=== PATIENT | male | born 1965 | race Caucasian/White ===

== ENCOUNTER 2023-04-13 15:39 | Outpatient (REF) | payer OTHER, SELFPAY ==
[2023-04-13 16:28] LABS: Anion Gap 15 (12-20); Blood Urea Nitrogen 11 mg/dL (9-16); Calcium 9.9 mg/dL (8.4-10.2); Carbon Dioxide 28 mmol/L (22-29); Chloride 103 mmol/L (96-108); Estimated Glomerular Filt Rate > 60; Glucose Random 86 mg/dL (60-115); Potassium 4.5 mmol/L (3.3-5.1); Sodium 141 mmol/L (135-145)
[2023-04-20 18:18] LABS: Acetylcholine Receptor Binding <0.30 nmol/L
[2023-04-21 18:24] LABS: Acetylcholine Recep Modulating 14
== END 2023-04-13 15:40 | disposition home or self-care (01) ==
LOC: HO.LAB 15:39
PROVIDERS: PCP Internal Medicine Medical Oncology; Visit Provider Psychiatry & Neurology Neurology
DX: H53.2 Diplopia (principal)
CPT/HCPCS: 36415; 80048; 82550; 83519

== ENCOUNTER 2025-02-13 09:02 | Outpatient (AMB) | payer OTHER, SELFPAY ==
--- OUTSIDE RECORDS SUMMARY | 2025-01-10 10:54 | XMS_ITS ---
Author Organization Landen Corral III, MD Address [address] [place] [address] [place] [address] Care Team Providers Care Customs Manager Name Role Phone Landen Corral Primary Care [...] Date Provider Diagnosis Landen Corral III, MD [address] [place] [address] [place] [address] 01/10/2025 Landen Corral Overweight E66.3 Assessments Encounter [...] Details Provider Name:Landen Corral, 03/21/2025 02:30:00 PM, [address] [place] [address] [place], [address], Progress Notes * Juan Antonio LOAIZAOB:1965 (59 yo M)Acc No.[id number]:01/10/2025 Patient: Roberto ZAMAN :1965 A ge:59 Y S ex:Male Address:[address] [place] [address] * Refills Refill Fluvastatin Sodium Capsule, 40 MG, Orally, 90, TAKE 1 CAPSULE BY MOUTH DAILY, once a day, 90 days, Refills=3 * true * Date: Generated for Gonzalo vasquez/Minerva/Soraidaitting on: 0 02/13/2025 09:56 AM EDT
== END 2025-02-13 09:37 | disposition home or self-care (01) ==
LOC: HO.HMGAL 09:02
PROVIDERS: PCP Internal Medicine Medical Oncology; Visit Provider Registered Nurse Emergency
DX: J30.89 Other allergic rhinitis (principal)
CPT/HCPCS: 95117; 95165

== ENCOUNTER 2025-02-19 08:04 | Outpatient (AMB) | payer OTHER, SELFPAY ==
--- OUTSIDE RECORDS SUMMARY | 2022-08-31 07:30 | XMS_ITS | Continuity of Care Document ---
Author Organization [facility] Address [address] [place] [address] [address] [place] [address] Phone Care Team Providers Care Veneer Stock Layer Name Role Phone Maximino BURGESS FACS RVT [...] Providers Copied on Encounter [facility], [address] [place] [address] [address], [place], [id number], tel:[phone] CVR - [facility] Body mass index (BMI) 27.0-27.9, adultSpider Veins - (Telangiecta bernabe) Aug- 3 Maximino BURGESS FACS RVT TIMOTEO Tim. [address] [facility] [address], [place], [address], [place]. tel:[phone] Referring Provider: Landen Henao, [address] [facility] [address], [place], [address]. tel:[phone] [facility], [address] [facility] [address], [place], [id number], [place] tel:[phone] [facility] - [place] - [place] Spider Veins - (Telangiecta bernabe) 2 Maximino BURGESS FACS RVT TMIOTEO Tim. [address] [facility], [address], [place], [address], [place]. tel:[phone] Referring Provider: Landen Corral MD E, [address] [facility] [address], [place], [address]. tel:[phone] Family History Family Member Type Diagnosis Age [...]
--- OUTSIDE RECORDS SUMMARY | 2025-01-10 10:54 | XMS_ITS ---
Author Organization Landen Corral III, MD Address [address] [place] [address] [place] [address] Care Team Providers Care Informatics Physician Liaison Name Role Phone Landen Corral Primary Care [...] Provider Diagnosis Landen Corral III, MD [address] [place] [address] [place] [address] 01/10/2025 Landen Corral Overweight E66.3 Assessments Encounter [...] 90 days Next Appt Details Provider Name:Landen Corral, 03/21/2025 02:30:00 PM, [address] [place] [address] [place], [address], Progress Notes * Juan Antonio LOAIZAOB:1965 (59 yo M)Acc No.[id number]:01/10/2025 Patient: Roberto ZAMAN :1965 A ge:59 Y S ex:Male Address:[address] [place] [address] * Refills Refill Fluvastatin Sodium Capsule, 40 MG, Orally, 90, TAKE 1 CAPSULE BY MOUTH DAILY, once a day, 90 days, Refills=3 * true * Date: Generated for Gonzalo vasquez/Minerva/Soraidaitting on: 0 02/19/2025 08:07 AM EDT
== END 2025-02-19 08:37 | disposition home or self-care (01) ==
LOC: HO.HMGAL 08:04
PROVIDERS: PCP Internal Medicine Medical Oncology; Visit Provider Registered Nurse Emergency
DX: J30.89 Other allergic rhinitis (principal)
CPT/HCPCS: 95117; 95165

== ENCOUNTER 2025-02-28 08:07 | Outpatient (AMB) | payer OTHER, SELFPAY ==
--- OUTSIDE RECORDS SUMMARY | 2022-08-31 07:30 | XMS_ITS | Continuity of Care Document ---
Author Organization [facility] Address [address] [place] [address] [address] [place] [address] Phone Care Team Providers Care Terminal Computer Operator Name Role Phone Maximino BURGESS FACS [...] Providers Copied on Encounter [facility], [address] [place] [address] [address], [place], [id number], tel:[phone] [facility]R - [facility] Body mass index (BMI) 27.0-27.9, adultSpider Veins - (Telangiecta bernabe) Aug- 3 Maximino BURGESS FACS RVT TIMOTEO Tim. [address] [facility] [address], [address], [place]. tel:[phone] Referring Provider: Landen Henao, [address] [facility] [address], [place], [address]. tel:[phone] [facility], [address] [facility] [address], [place], [id number], [place] tel:[phone] [facility] - [place] - [place] Spider Veins - (Telangiecta bernabe) 2 Maximino BURGESS FACS RVT TIMOTEO Tim. [address] [facility], [address], [place], [address], [place]. tel:[phone] Referring Provider: Landen Corral MD E, [address] [facility] [address], [place], [address]. tel:[phone] Family History Family Member Type Diagnosis Age At Onset No Information Payers Payer name Insurance type Covered democrat ID Authoriza tion(s) Self Pay 09 Social [...]
--- OUTSIDE RECORDS SUMMARY | 2024-05-15 11:00 | XMS_ITS ---
Author Organization Landen Corral III, MD Address [address] [place] [address] [place] [address] Care Team Providers Care Forensic Anthropologist Name Role Phone Landen Corral Primary Care Provider Allergies Allergen (clinical drug [...] Internal M edicine Referred Provider [facility]geons, [facility], [facility] Referred Provider Specialty Otolaryngolo gy General Notes DMaritza 05/18/2024 10:38:44 AM > Cover sheet, referral [...] Date Provider Diagnosis Landen Corral III, MD [address] [place] [address] [place] [address] 05/15/2024 Landen Corral Overweight E66.3 ; Hyperlipidemia [...] Evaluate and Treat Bilateral Hearing Loss, of [facility], [facility]T. Surgeons Next Appt Details Follow Up: 4 Months, Three t imes a year, Reason: OV, Regular Checkup Provider Name:Landen Corral, 03/21/2025 02:30:00 PM, [address] [place] [address] [address] [place] [address], [phone], Progress Notes * Afia LOAIZAisDOB:1965 (58 yo M)Acc No.[id number]:05/15/2024 Progress Notes Patient: Roberto ZAMAN Provider: Sukhdev Corral MD :1965 A ge:58 Y S ex:Male Date:05/15/2024 Address:[address] [place] [phone] Subjective: * Chief Complaints: * H earing [...] and is working. He was born in [place], [place]. * Medications: T akingZyrTEC Allergy 10 MG [...] AB: Lipid Panel 3. O shiva Referral To:[facility] E.N.T Surgeons Otolaryngology Reason:Evaluate and Treat Bilateral [...] 07/15/2023 Generated for Gonzalo vasquez/Minerva/eTabidasmitting on: 0 02/28/2025 08:31 AM EDT History and Physical Notes * HPI (History of Present Illness) Category Sub-Category Detail Notes COVID-19 Screening Questions Have you had any new onset fever, chills, cough, congestion, sore throat, shortness of breath, muscle aches?: No Have you been exposed to the virus withi n the last 10 days?: No Have you travelled internationally in [facility] last 10 days?: No Have you been [...] Reagan rich 05/15/2024 Landen Corral Surgeons, of [facility], [facility] Evaluate and Treat Bilateral Hearing Loss
--- OUTSIDE RECORDS SUMMARY | 2024-08-25 05:11 | XMS_ITS ---
Author Organization Landen Corral III, MD Address [address] [place] [address] [place] [address] Care Team Providers Care Tongue Lining Stitcher Name Role Phone Landen Corral Primary Care Provider REASON FOR VISIT Rx [...] Date Provider Diagnosis Landen Corral III, MD [address] [place] [address] [place] [address] 08/25/2024 Landen Corral Plan Of Treatment Medication Medication Name Sig Start Date Stop Date Notes Azithromycin 250 MG as directed Orally 2 Tablets on the first day, one tablet the rest of the days for 5 days 08/25/2024 08/30/2024 Next Appt Details Provider Name:Landen Corral, 03/21/2025 02:30:00 PM, [address] [place] [address] [place], [address], Progress Notes * Juan Antonio LOAIZAOB:1965 (58 yo M)Acc No.[id number]:08/25/2024 Patient: Sukhdev PRETTYRoberto :1965 A ge:58 Y S ex:Male Address:[address] [place] [phone] * Refills Start Azithromycin Tablet, 250 MG, Orally, 6, as directed, 2 Tablets on the first day, one tablet the rest of the days, 5 days, Refills=0 * true * Date: Generated for Gonzalo vasquez/Minerva/Sonia on: 0 02/28/2025 08:29 AM EDT
--- OUTSIDE RECORDS SUMMARY | 2024-09-13 11:00 | XMS_ITS ---
Author Organization Landen Corral III, MD Address [address] [place] [address] [place] [address] Care Team Providers Care Transportation Broker Name Role Phone Landen Corral Primary Care [...] Date Provider Diagnosis Landen Corral III, MD [address] [place] [address] [place] [address] 09/13/2024 Landen Gonzalesrne Overweight E66.3 ; Hyperlipidemia [...] labs Provider Name:Landen Corral, 03/21/2025 02:30:00 PM, [address] [place] [address] [address], [place], [address], Progress Notes * Juan Antonio LOAIZAOB:1965 (58 yo M)Acc No.[id number]:09/13/2024 Progress Notes Patient: Roberto ZAMAN Provider: Sukhdev Corral MD :1965 A ge:58 Y S ex:Male Date:09/13/2024 Address:[address] [place] [phone] Subjective: * Chief Complaints: * H yperlipidemiaObstructive [...] and is working. He was born in [place]. * Medications: T akingZyrTEC Allergy 10 [...] Corral MD Date: 09/13/2024 Generated for Gonzalo vasquez/Minerva/Soraidaitting on: 0 02/28/2025 08:29 AM EDT History and Physical Notes [...]
--- OUTSIDE RECORDS SUMMARY | 2025-01-10 10:54 | XMS_ITS ---
Author Organization Landen Corral III, MD Address [address] [place] [address] [place] [address] Care Team Providers Care Electro Mechanical Technician Name Role Phone Landen Corral Primary [...] Date Provider Diagnosis Landen Corral III, MD [address] [place] [address] [place] [address] 01/10/2025 Landen Corral Overweight E66.3 Assessments Encounter [...] Details Provider Name:Landen Corral, 03/21/2025 02:30:00 PM, [address] [place] [address] [place], [address], Progress Notes * Juan Antonio LOAIZAOB:1965 (59 yo M)Acc No.[id number]:01/10/2025 Patient: Roberto ZAMAN :1965 A ge:59 Y S ex:Male Address:[address] [place] [address] * Refills Refill Fluvastatin Sodium Capsule, 40 MG, Orally, 90, TAKE 1 CAPSULE BY MOUTH DAILY, once a day, 90 days, Refills=3 * true * Date: Generated for Gonzalo vasquez/Minerva/Soraidaitting on: 0 02/28/2025 08:30 AM EDT
--- OUTSIDE RECORDS SUMMARY | 2025-01-17 11:30 | XMS_ITS ---
Author Organization Landen Corral III, MD Address [address] [place] [address] [place] [address] Care Team Providers Care Department Specialist Name Role Phone Landen Corral Primary Care [...] Date Provider Diagnosis Landen Corral III, MD [address] [place] [address] [address] [place], [place] [address] 01/17/2025 Landen Corral Overweight E66.3 ; Hyperlipidemia [...] Next Appt Details Follow Up: As Scheduled, [place] son: Annual Exam Provider Name:Landen Corral, 03/21/2025 02:30:00 PM, [address], [place], [address], Progress Notes * Juan Antonio LOAIZAOB:1965 (59 yo M)Acc No.[id number]:01/17/2025 Progress Notes Patient: Roberto ZAMAN Provider: Sukhdev Corral MD :1965 A ge:59 Y S ex:Male Date:01/17/2025 Address:[address] [place] [address], [phone] Subjective: * Chief Complaints: * H yperlipidemiaOverweightSleep [...] * Surgical History: c olonoscopy, based a [facility], every 10 years March 2020No history [...] and is working. He was born in [place]. * Medications: T akingZyrTEC Allergy 10 [...] true * Provider: Sukhdev Corral MD Date: 01/17/2025 Generated for Gonzalo vasquez/Minerva/eTabidasmitting on: 02/28/2025 08:30 AM EDT History and Physical Notes [...]
--- OUTSIDE RECORDS SUMMARY | 2025-02-28 08:31 | XMS_ITS | Patient Health Record ---
Author Organization Landen Corral III, MD Address [address] [place] [address] [place] [address] Care Team Providers Care Angular Js Developer Name Role Phone Landen Corral Primary Care Provider [phone] Allergies Allergen (clinical drug ingredient) Drug/Non Drug Allergy documented on EMR Reaction Allergy Type Onset Date Status Statins Support muscle pain Drug Allergy Active environmental (uncoded) Unknown Allergy Active insects (uncoded) Unknown Allergy Ac tive Results Component Value Reference Range Notes URINE DIP STICK Reviewed date:03/20/2024 02:37:11 PM Interpretation: Performing Lab: Notes/Report: SG 1.015 1.005 - 1.025 pH 6.0 5.0 - 9.0 BOLIVAR 70 Negative - NIT Negative Negative - PRO 15 Negative - Trace GLU Negative Negative - KET Negative Negative - UBG 0.2 0.1 - 1.8 SHLOMO Negative 0.2 - 1.3 BLD 50 Negative - Reason For Referral Reason Evaluate and Treat Bilateral Hearing Loss Diagnosis 1 Bilateral hearing lo ss, unspecified hearing loss type (H91.93) Referral Organization Landen Corral III, MD Referring Provider First Name Landen Referring Provider Last Name Ellis Referring Provider Speciality Internal M edicine Referred Provider [facility], [facility], [facility] Referred Provider Specialty Otolaryngolo gy General Notes D Maritza 05/18/2024 10:38:44 AM > Cover sheet, referral and progress note faxed Referral Priority Routine Referral Appointment Date 09/27/2024 Medications Medication SIG (Take, Route, Frequency, Duration) Notes Start Date End Date Status Fluvastatin Sodium 40 MG TAKE 1 CAPSULE BY MOUTH DAILY Orally once a day Active ZyrTEC Allergy 10 MG 1 tablet Orally Onc e a day Active Citalopram Hydrobromide 10 MG 1 tablet Orally Once a day Active Immunizations Vaccine Route Administration Date Status Comme nts SHINGRIX Unknown 05/17/2020 Administered SHINGRIX Unknown 03/13/2020 Administered COVID- 19 Vaccine Unknown 07/31/2020 Administered COVID- 19 Vaccine Unknown 05/16/2021 Administered COVID- 19 Vaccine Unknown 07/03/2020 Administered Tdap Unknown 01/24/2022 Administered Tdap Unknown 03/05/2022 Administered Social History Tobacco Use: Social History Observation [...] ast year? No Points 0 Interpretation Negative Problems Problem Type SNOMED Code ICD Code Onset Dates Problem Status W/U Status Risk Notes Problem 8654017 Former smoker (Z87.891) Active confirmed He has a plan for maintenance of abstinence in times of illness and distress. He is highly motivated not to smoke. Problem 38579980 Hyperlipidemia (E78.5) Active confirmed His lipids are stable and no change in his fluvastatin dose was made today. Problem 005532602 Overweight (E66.3) Active confirmed His body mass index is 28. He has lost 2 pounds. We made a plan to continue to lose weight at a rate of one half of a pound per week. Problem BPH (benign prostatic hypertrophy) (N40.0) Active confirmed He ariises from sleep on the average twice a night. We discussed modifications in his lifestyle he could make to reduce nocturia. Problem 69370279 Statin intolerance (Z78.9) Active confirmed He has had no myalgias with fluvastatin. He is not allergic to statins. He is intolerant to the last lipid soluble statins. Problem 02489224 Obstructive sleep apnea (G47.33) Active confirmed He will continue using the CPAP. He denies any daytime somnolence. Problem Hearing loss (80830139) Bilateral hearing loss, unspecified hearing loss type (H91.93) Active confirmed Problem 52213688 Reactive depression (F32.9) Active confirmed He does not feel depressed lately. His depression is in remission and he is doing well. Vital Signs Heart Rate 67 /min 01/17/2025 Temperature 98.8 degrees Fahrenheit 01/17/2025 Blood pressure diastolic 90 mm Hg 01/17/2025 Height 70 in 01/17/2025 Blood pressure systolic 152 mm Hg 01/17/2025 Weight 195 lbs 01/17/2025 BMI 27.98 kg/m2 01/17/2025 Encounters Encounter Location Date Provider Diagnosis Landen Corral III, MD [address] [place] [address] [place] [address] 03/20/2024 Landen Corral Overweight E66.3 ; Hyperlipidemia E78.5 ; Former smoker Z87.891 ; Statin intolerance Z78.9 ; Obstructive sleep apnea G47.33 and BPH (benign prostatic hypertrophy) N40.0 Landen Corral III, MD [address] [place] [address] [place] [address] 05/15/2024 Landen Corral Overweight E66.3 ; Hyperlipidemia E78.5 ; BPH (benign prostatic hypertrophy) N40.0 ; Former smoker Z87.891 ; Obstructive sleep apnea G47.33 ; Reactive depression F32.9 and Statin intolerance Z78.9 Landen Corral III, MD [address] [place] [address] [place] [address] 09/13/2024 Landen Corral Overweight E66.3 ; Hyperlipidemia E78.5 ; Former smoker Z87.891 ; Obstructive sleep apnea G47.33 ; Statin intolerance Z78.9 and BPH (benign prostatic hypertrophy) N40.0 Landen Corral III, MD [address] [place] [address] [place] [address] 01/17/2025 Landen Corral Overweight E66.3 ; Hyperlipidemia E78.5 ; Former smoker Z87.891 ; Obstructive sleep apnea G47.33 ; BPH (benign prostatic hypertrophy) N40.0 and Reactive depression F32.9 Landen Corral III, MD [address] [place] [address] [place] [address] 08/25/2024 Landen Corral III, MD [address] [place] [address] [address] [place], [place] [address] 01/10/2025 Landen Ellis Overweight E66.3 Assessments Encounter Date Diagnosis (ICD Code) Assessment Notes Treat ment Notes Treatment Clinical Notes 03/20/2024 Hyperlipidemia (ICD-10 - E78.5) His lipids were reviewed. His total cholesterol is 235 which is acceptable. He is able to take the fluvastatin without myalgias. His triglycerides are quite elevated at 268 and we reviewed the aanimal fat in his diet. 03/20/2024 Overweight (ICD-10 - E66.3) He remains slightly overweight. We reviewed his weight loss strategy. He will continue to lose weight until his body mass index is normal. 05/15/2024 Hyperlipidemia (ICD-10 - E78.5) His lipids were reviewed. His total cholesterol is 235 which is acceptable. He is able to take the fluvastatin without myalgias. His triglycerides are quite elevated at 268 and we reviewed the aanimal fat in his diet. 05/15/2024 Overweight (ICD-10 - E66.3) His body mass index is 28. He has lost 2 pounds. We made a plan to continue to lose weight at a rate of one half of a pound per week. 09/13/2024 Hyperlipidemia (ICD-10 - E78.5) 09/13/2024 Overweight (ICD-10 - E66.3) His body mass index is 28. He has lost 2 pounds. We made a plan to continue to lose weight at a rate of one half of a pound per week. 01/17/2025 Hyperlipidemia (ICD-10 - E78.5) His lipids are stable and no change in his fluvastatin dose was made today. 01/17/2025 Overweight (ICD-10 - E66.3) His body mass index is 28. He has lost 2 pounds. We made a plan to continue to lose weight at a rate of one half of a pound per week. 01/10/2025 Overweight (ICD-10 - E66.3) His body mass index is 28. He has lost 2 pounds. We made a plan to continue to lose weight at a rate of one half of a pound per week. 03/20/2024 Former smoker (ICD-1 0 - Z87.891) He has a plan for maintenance of abstinence in times of illness and distress. He is highly motivated not to smoke. 05/15/2024 BPH (benign prostati c hypertrophy) (ICD-10 - N40.0) He ariises from sleep on the average once a month. We discussed modifications in his lifestyle he could make to reduce nocturia. 09/13/2024 Former smoker (ICD-1 0 - Z87.891) He has a plan for maintenance of abstinence in times of illness and distress. He is highly motivated not to smoke. 01/17/2025 Former smoker (ICD-1 0 - Z87.891) He has a plan for maintenance of abstinence in times of illness and distress. He is highly motivated not to smoke. 03/20/2024 Statin intolerance (ICD-10 - Z78.9) He has had no myalgias with fluvastatin. He is not allergic to statins. He is intolerant to the last lipid soluble statins. 05/15/2024 Former smoker (ICD-1 0 - Z87.891) He has a plan for maintenance of abstinence in times of illness and distress. He is highly motivated not to smoke. 09/13/2024 Obstructive sleep apnea (ICD-10 - G47.33) He will continue using the CPAP. He denies any daytime somnolence. 01/17/2025 Obstructive sleep apnea (ICD-10 - G47.33) He will continue using the CPAP. He denies any daytime somnolence. 03/20/2024 Obstructive sleep apnea (ICD-10 - G47.33) He will continue using the CPAP. He denies any daytime somnolence. 05/15/2024 Obstructive sleep apnea (ICD-10 - G47.33) He will continue using the CPAP. He denies any daytime somnolence. 09/13/2024 Statin intolerance (ICD-10 - Z78.9) He has had no myalgias with fluvastatin. He is not allergic to statins. He is intolerant to the last lipid soluble statins. 01/17/2025 BPH (benign prostati c hypertrophy) (ICD-10 - N40.0) He ariises from sleep on the average twice a night. We discussed modifications in his lifestyle he could make to reduce nocturia. 03/20/2024 BPH (benign prostati c hypertrophy) (ICD-10 - N40.0) He rises from sleep once a night. We reviewed a program of lifestyle modification to reduce nocturia. 05/15/2024 Reactive depression (ICD-10 - F32.9) He does not feel depressed lately. His depression is in remission and he is doing well. 09/13/2024 BPH (benign prostati c hypertrophy) (ICD-10 [...] last lipid soluble statins. Plan Of Treatment Pending Test Test Name Order Date PROFILE, FASTING (COMPREHENSIVE METABOLI C) 08/01/2021 PROFILE, FASTING (COMPREHENSIVE METABOLI C) 09/13/2024 PROFILE, FASTING (COMPREHENSIVE METABOLI C) 05/22/2019 PROFILE, FASTING (COMPREHENSIVE METABOLI C) 04/15/2022 PROFILE, FASTING (COMPREHENSIVE METABOLI C) 06/08/2017 PROFILE, FASTING (COMPREHENSIVE METABOLI C) 03/16/2023 PROFILE, FASTING (COMPREHENSIVE METABOLI C) 11/22/2019 PROFILE, FASTING (COMPREHENSIVE METABOLI C) 05/15/2024 PROFILE, FASTING (COMPREHENSIVE METABOLI C) 07/24/2020 PROFILE, FASTING (COMPREHENSIVE METABOLI C) 05/23/2018 PROFILE, FASTING (COMPREHENSIVE METABOLI C) 03/28/2021 PROFILE, FASTING (COMPREHENSIVE METABOLI C) 12/21/2022 PROFILE, FASTING (COMPREHENSIVE METABOLI C) 06/09/2017 PROFILE, FASTING (COMPREHENSIVE METABOLI C) 10/20/2023 PROFILE, FASTING (COMPREHENSIVE METABOLI C) 12/28/2018 PROFILE, FASTING (COMPREHENSIVE METABOLI C) 03/04/2022 PROFILE, FASTING (COMPREHENSIVE METABOLI C) 01/17/2025 PROFILE, FASTING (COMPREHENSIVE METABOLI C) 08/22/2019 PROFILE, FASTING (COMPREHENSIVE METABOLI C) 04/17/2020 PROFILE, FASTING (COMPREHENSIVE METABOLI C) 01/18/2018 PROFILE, FASTING (COMPREHENSIVE METABOLI C) 11/26/2020 PROFILE, FASTING (COMPREHENSIVE METABOLI C) 07/16/2023 PROFILE, FASTING (COMPREHENSIVE METABOLI C) 2018 PROFILE, RANDOM (COMPREHENSIVE METABOLIC ) 10/12/2017 PROFILE, RANDOM (COMPREHENSIVE METABOLIC ) 07/27/2022 LIPID PANEL 01/18/2018 LIPID PANEL 2018 LIPID PANEL 08/01/2021 LIPID PANEL 11/30/2022 LIPID PANEL 05/22/2019 LIPID PANEL 06/08/2017 LIPID PANEL 03/16/2023 LIPID PANEL 11/22/2019 LIPID PANEL 10/12/2017 LIPID PANEL 07/24/2020 LIPID PANEL 05/23/2018 LIPID PANEL 12/21/2022 LIPID PANEL 06/09/2017 LIPID PANEL 12/28/2018 LIPID PANEL 08/22/2019 LIPID PANEL 07/27/2022 LIPID PANEL 04/17/2020 PSA, TOTAL 05/15/2024 PSA, TOTAL 03/16/2023 PSA, TOTAL 10/20/2023 CBC w DIFF 08/22/2019 CBC w DIFF 11/26/2020 CBC w DIFF 07/27/2022 CBC w DIFF 04/17/2020 CBC w DIFF 01/18/2018 CBC w DIFF 09/13/2024 CBC w DIFF 04/15/2022 CBC w DIFF 2018 CBC w DIFF 08/01/2021 CBC w DIFF 05/22/2019 CBC w DIFF 06/08/2017 CBC w DIFF 11/22/2019 CBC w DIFF 03/28/2021 CBC w DIFF 10/12/2017 CBC w DIFF 07/24/2020 CBC w DIFF 03/16/2023 CBC w DIFF 05/23/2018 CBC w DIFF 01/17/2025 CBC w DIFF 12/21/2022 CBC w DIFF 06/09/2017 CBC w DIFF 12/28/2018 HEPATITIS C ANTIBODY 06/09/2017 URINALYSIS - CLEAN CATCH (UA) 03/04/2022 MRI BRAIN NO CONTRAST 02/04/2023 Sleep Study - Diagnostic 10/14/2015 CBC WITH AUTO DIFF 07/16/2023 CBC WITH AUTO DIFF 05/15/2024 CBC WITH AUTO DIFF 10/20/2023 Lipid Panel 10/20/2023 Lipid Panel 11/26/2020 Lipid Panel 07/16/2023 Lipid Panel 09/13/2024 Lipid Panel 04/15/2022 Lipid Panel 03/28/2021 Lipid Panel 05/15/2024 Lipid Panel 03/04/2022 Lipid Panel 01/17/2025 Next Appt Details Provider Name:Landen Corral, 03/21/2025 02:30:00 PM, [address] [place] [address] , [address], [place], [address], Insurance Providers Payer Name Payer Address Payer Phone Subscriber Number Group Number Insured Name Patient Relationship to Insured Coverage Start Date Coverage End Date [facility] [address] [facility] [address] [facility] [place] [phone] [id number] Rboerto Loaiza Self - patient is the insured Medical (General) History Medical History History ICD Code hyperlipidemia chronic back pain near sighted Overweight Surgical History Surgery Date(Month/Year) No history [facility] 10 [facility] March 2020 Hospitalization History Reason Date(Month/Year) No history
== END 2025-02-28 08:48 | disposition home or self-care (01) ==
LOC: HO.HMGAL 08:07
PROVIDERS: PCP Internal Medicine Medical Oncology; Visit Provider Registered Nurse Emergency
DX: J30.89 Other allergic rhinitis (principal)
CPT/HCPCS: 95117; 95165

== ENCOUNTER 2025-03-05 07:56 | Outpatient (AMB) | payer OTHER, SELFPAY ==
--- OUTSIDE RECORDS SUMMARY | 2022-08-31 07:30 | XMS_ITS | Continuity of Care Document ---
Author Organization [facility] Address [address] [place] [address] [address] [place] [address] Phone Care Team Providers Care Kitchenwhere Maker Name Role Phone Maximino BURGESS FACS RVT [...] Providers Copied on Encounter [facility], [address] [place] [address] [address], [place], [id number], tel:[phone] [facility]R - [facility] Body mass index (BMI) 27.0-27.9, adultSpider Veins - (Telangiecta bernabe) Aug- 3 Maximino BURGESS FACS RVT TIMOTEO Tim. [address] [facility] [address], [address], [place]. tel:[phone] Referring Provider: Landen Henao, [address] [facility] [address], [place], [address]. tel:[phone] [facility], [address] [facility] [address], [place], [id number], [place] tel:[phone] [facility] - [place] - [place] Spider Veins - (Telangiecta bernabe) 2 Maximino BURGESS FACS RVT TIMOTEO Tim. [address] [facility], [address], [place], [address], [place]. tel:[phone] Referring Provider: Landen Corral MD E, [address] [facility] [address], [place], [address]. tel:[phone] Family History Family Member Type Diagnosis Age [...]
--- OUTSIDE RECORDS SUMMARY | 2024-05-15 11:00 | XMS_ITS ---
Author Organization Landen Corral III, MD Address [address] [place] [address] [place] [address] Care Team Providers Care Human Resources Administrator Name Role Phone Landen Corral Primary Care Provider [phone] Allergies Allergen (clinical drug ingredient) Drug/Non Drug [...] Internal M edicine Referred Provider [facility], [facility], [facility] Referred Provider Specialty Otolaryngolo gy General Notes D Maritza 05/18/2024 10:38:44 AM > Cover sheet, [...] Provider Diagnosis Landen Corral III, MD [address] [place] [address] [place] [address] 05/15/2024 Landen Corral Overweight E66.3 ; Hyperlipidemia [...] and Treat Bilateral Hearing Loss, of [facility], [facility]geons Next Appt Details Follow Up: 4 Months, Three t imes a year, Reason: OV, Regular Checkup Provider Name:Landen Corral, 03/21/2025 02:30:00 PM, [address] [place] [address] D[address] READ [address] [place] [address], [address], Progress Notes * Afia LOAIZAisDOB:1965 (58 yo M)Acc No.[id number]:05/15/2024 Progress Notes Patient: Roberto ZAMAN Provider: Sukhdev Corral MD :1965 A ge:58 Y S ex:Male Date:05/15/2024 Address:[address] [place] [phone] Subjective: * Chief Complaints: * H earing [...] [facility], every 10 years March 2020No [...] and is working. He was born in [place], [place]. * Medications: T akingZyrTEC Allergy 10 MG [...] Examination: G eneral Examination: GENERAL APPEARANCE: p malaika, well nourished, well developed, in no acute [...] DIFF L AB: Lipid Panel 3. O shiva Referral To:[facility] Surgeons Otolaryngology Reason:Evaluate and Treat Bilateral Hearing [...] Sukhdev Corral MD Date: 07/15/2023 Generated for Gonzalo vasquez/Minerva/eTabidasmitting on: 0 03/05/2025 07:58 AM EDT History and Physical Notes * HPI (History of Present Illness) Category Sub-Category Detail Notes COVID-19 Screening Questions Have you had any new onset fever, chills, cough, congestion, sore throat, shortness of breath, muscle aches?: No Have you been exposed to the virus withi n the last 10 days?: No Have you travelled internationally in [facility] last 10 days?: No Have you been [...] Notes Referral Date Referring Provider Referred Provider Reagan rich 05/15/2024 Ladnen Corral Surgeons, of [facility], [facility] Evaluate and Treat Bilateral Hearing Loss
--- OUTSIDE RECORDS SUMMARY | 2024-08-25 05:11 | XMS_ITS ---
Author Organization Landen Corral III, MD Address [address] [place] [address] [place] [address] Care Team Providers Care Landscape Technician Name Role Phone Landen Corral Primary Care Provider [phone] REASON FOR VISIT Rx Request Medications Medication [...] Date Provider Diagnosis Landen Corral III, MD [address] [place] [address] [place] [address] 08/25/2024 Landen Corral Plan Of Treatment Medication Medication Name Sig Start Date Stop Date Notes Azithromycin 250 MG as directed Orally 2 Tablets on the first day, one tablet the rest of the days for 5 days 08/25/2024 08/30/2024 Next Appt Details Provider Name:Landen Corral, 03/21/2025 02:30:00 PM, [address] [place] [address] [place], [address], Progress Notes * Juan Antonio LOAIZAOB:1965 (58 yo M)Acc No.[id number]:08/25/2024 Patient: Sukhdev PRETTYRoberto :1965 A ge:58 Y S ex:Male Address:[address] [place] [phone] * Refills Start Azithromycin Tablet, 250 MG, Orally, 6, as directed, 2 Tablets on the first day, one tablet the rest of the days, 5 days, Refills=0 * true * Date: Generated for Gonzalo vasquez/Minerva/Sonia on: 0 03/05/2025 07:57 AM EDT
--- OUTSIDE RECORDS SUMMARY | 2024-09-13 11:00 | XMS_ITS ---
Author Organization Landen Corral III, MD Address [address] [place] [address] [place] [address] Care Team Providers Care Manager Oracle Database Name Role Phone Landen Corral Primary Care [...] Date Provider Diagnosis Landen Corral III, MD [address] [place] [address] [place] [address] 09/13/2024 Landen Gonzalesrne Overweight E66.3 ; Hyperlipidemia E78.5 ; Former [...] Months, Reason: ov review labs Provider Name:Landen Corral, 03/21/2025 02:30:00 PM, [address] [place] [address] [address], [place], [address], Progress Notes * Juan Antonio LOAIZAOB:1965 (58 yo M)Acc No.[id number]:09/13/2024 Progress Notes Patient: Roberto ZAMAN Provider: Sukhdev Corral MD :1965 A ge:58 Y S ex:Male Date:09/13/2024 Address:[address] [place] [phone] Subjective: * Chief Complaints: * H yperlipidemiaObstructive [...] and is working. He was born in [place]. * Medications: T akingZyrTEC Allergy 10 [...] true * Provider: Sukhdev Corral MD Date: 09/13/2024 Generated for Gonzalo vasquez/Minerva/Sonia on: 0 03/05/2025 07:58 AM EDT History [...]
--- OUTSIDE RECORDS SUMMARY | 2025-01-10 10:54 | XMS_ITS ---
Author Organization Landen Corral III, MD Address [address] [place] [address] [place] [address] Care Team Providers Care Children'S Librarian Name Role Phone Landen Corral Primary Care Provider [phone] REASON FOR VISIT Rx Refill Medications Medication SIG (Take, Route, Frequency, Duration) Notes Start Date End Date Status Fluvastatin Sodium 40 MG TAKE 1 CAPSULE BY MOUTH DAILY Orally once a day for 90 days Active Social History Sex Assigned At : Social History Observation Description Sex Assigned At Male Encounters Encounter Location Date Provider Diagnosis Landen Corral III, MD [address] [place] [address] [place] [address] 01/10/2025 Landen Corral Overweight E66.3 Assessments Encounter [...] Details Provider Name:Landen Corral, 03/21/2025 02:30:00 PM, [address] [place] [address] [place], [address], Progress Notes * Juan Antonio LOAIZAOB:1965 (59 yo M)Acc No.[id number]:01/10/2025 Patient: Roberto ZAMAN :1965 A ge:59 Y S ex:Male Address:[address] [place] [address] * Refills Refill Fluvastatin Sodium Capsule, 40 MG, Orally, 90, TAKE 1 CAPSULE BY MOUTH DAILY, once a day, 90 days, Refills=3 * true * Date: Generated for Gonzalo vasquez/Minerva/Soraidaitting on: 0 03/05/2025 07:58 AM EDT
--- OUTSIDE RECORDS SUMMARY | 2025-01-17 11:30 | XMS_ITS ---
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 Machine Operator Semiautomatic Name Role Phone Landen Corral Primary Care [...] Date Provider Diagnosis Landen Corral III, MD [address] [place] [address] [address] [place], [place] [phone] 01/17/2025 Landen Corral Overweight E66.3 ; Hyperlipidemia [...] Next Appt Details Follow Up: As Scheduled, [place] son: Annual Exam Provider Name:Landen Corral, 03/21/2025 02:30:00 PM, [address], [place], [address], Progress Notes * Juan Antonio LOAIZAOB:1965 (59 yo M)Acc No.[id number]:01/17/2025 Progress Notes Patient: Roberto ZAMAN Provider: Sukhdev Corral MD :1965 A ge:59 Y S ex:Male Date:01/17/2025 Address:[address] [place] [address], [id number] Subjective: * Chief Complaints: * H yperlipidemiaOverweightSleep [...] * Surgical History: c olonoscopy, based a [facility], every 10 years March 2020No [...] and is working. He was born in [place]. * Medications: T akingZyrTEC Allergy 10 [...] MD Date: 0 01/17/2025 Generated for Gonzalo vasquez/Minerva/eTabidasmitting on: 0 03/05/2025 [...]
--- OUTSIDE RECORDS SUMMARY | 2025-03-05 07:58 | XMS_ITS | Patient Health Record ---
Author Organization Landen Corral III, MD Address [address] [place] [address] [place] [address] Care Team Providers Care Senior Windows Systems Administrator Name Role Phone Landen Corral Primary [...] Internal M edicine Referred Provider [facility], [facility], [facility] Referred Provider Specialty Otolaryngolo gy General [...] Problem Status W/U Status Risk Notes Problem 7820971 Former smoker (Z87.891) Active confirmed He has a plan for maintenance of abstinence in times of illness and distress. He is highly motivated not to smoke. Problem 18190294 Hyperlipidemia (E78.5) Active confirmed His lipids are stable and no change in his fluvastatin dose was made today. Problem 273838316 Overweight (E66.3) Active confirmed His body mass index is 28. He has lost 2 pounds. We made a plan to continue to lose weight at a rate of one half of a pound per week. Problem Benign prostatic hypertrophy without outflow obstruction (502905547) BPH (benign prostatic hypertrophy) (N40.0) Active confirmed He ariises from sleep on the average twice a night. We discussed modifications in his lifestyle he could make to reduce nocturia. Problem 01600493 Statin intolerance (Z78.9) Active confirmed He has had no myalgias with fluvastatin. He is not allergic to statins. He is intolerant to the last lipid soluble statins. Problem 73196536 Obstructive sleep apnea (G47.33) Active confirmed He will continue using the CPAP. He denies any daytime somnolence. Problem Hearing loss (57678834) Bilateral hearing loss, unspecified hearing loss type (H91.93) Active confirmed Problem 31794055 Reactive depression (F32.9) Active confirmed He does [...] Provider Diagnosis Landen Corral III, MD [address] [place] [address] [place] [address] 03/20/2024 Landen Corral Overweight E66.3 ; Hyperlipidemia E78.5 ; Former smoker Z87.891 ; Statin intolerance Z78.9 ; Obstructive sleep apnea G47.33 and BPH (benign prostatic hypertrophy) N40.0 Landen Corral III, MD [address] [place] [address] [place] [address] 05/15/2024 Landen Corral Overweight E66.3 ; Hyperlipidemia E78.5 ; BPH (benign prostatic hypertrophy) N40.0 ; Former smoker Z87.891 ; Obstructive sleep apnea G47.33 ; Reactive depression F32.9 and Statin intolerance Z78.9 Landen Corral III, MD [address] [place] [address] [place] [address] 09/13/2024 Landen Corral Overweight E66.3 ; Hyperlipidemia E78.5 ; Former smoker Z87.891 ; Obstructive sleep apnea G47.33 ; Statin intolerance Z78.9 and BPH (benign prostatic hypertrophy) N40.0 Landen Corral III, MD [address] [place] [address] [place] [address] 01/17/2025 Landen Corral Overweight E66.3 ; Hyperlipidemia E78.5 ; Former smoker Z87.891 ; Obstructive sleep apnea G47.33 ; BPH (benign prostatic hypertrophy) N40.0 and Reactive depression F32.9 Landen Corral III, MD [address] [place] [address] [place] [address] 08/25/2024 Landen Corral III, MD [address] [place] [address] [address] [place] [address] 01/10/2025 Landen Ellis Overweight E66.3 Assessments Encounter [...] Details Provider Name:Landen Corral, 03/21/2025 02:30:00 PM, [address] [place] [address] DR, [address], [place], [address], Insurance Providers Payer Name Payer Address Payer Phone Subscriber Number Group Number Insured Name Patient Relationship to Insured Coverage Start Date Coverage End Date [facility] [address] [facility] [address] [facility] [place] [phone] [id number] 23 Roberto Loaiza Self - patient is the insured Medical (General) History Medical History History ICD Code hyperlipidemia chronic back pain near sighted Overweight Surgical History Surgery Date(Month/Year) No history [facility], [facility] 10 [facility] March 2020 Hospitalization History Reason Date(Month/Year) No history
== END 2025-03-05 08:19 | disposition home or self-care (01) ==
LOC: HO.HMGAL 07:56
PROVIDERS: PCP Internal Medicine Medical Oncology; Visit Provider Registered Nurse Emergency
DX: J30.89 Other allergic rhinitis (principal)
CPT/HCPCS: 95117; 95165

== ENCOUNTER 2025-03-12 08:11 | Outpatient (AMB) | payer OTHER, SELFPAY | END 2025-03-12 08:31 | disposition home or self-care (01) | LOC: HO.HMGAL 08:11 | PROVIDERS: PCP Internal Medicine Medical Oncology; Visit Provider Registered Nurse Emergency | DX: J30.89 Other allergic rhinitis (principal) | CPT/HCPCS: 95117; 95165 ==

== ENCOUNTER 2025-03-19 08:12 | Outpatient (AMB) | payer OTHER, SELFPAY ==
--- OUTSIDE RECORDS SUMMARY | 2024-05-15 11:00 | XMS_ITS ---
Author Organization Landen Corral III, MD Address [address] [place] [address] [place] [address] Care Team Providers Care Hot Blast Worker Name Role Phone Landen Corral Primary Care Provider [phone] Allergies Allergen (clinical drug ingredient) Drug/Non Drug [...] M edicine Referred Provider [facility], [facility], [facility] Referred Provider Specialty Otolaryngolo gy General [...] Date Provider Diagnosis Landen Corral III, MD [address] [place] [address] [place] [address] 05/15/2024 Landen Corral Overweight E66.3 ; Hyperlipidemia [...] Evaluate and Treat Bilateral Hearing Loss, of [facility], [facility] Surgeons Next Appt Details Follow Up: 4 Months, Three t imes a year, Reason: OV, Regular Checkup Provider Name:Landen Corral, 03/21/2025 02:30:00 PM, [address] [place] [address] [address] [place] [address], [address], Progress Notes * Afia LOAIZAisDOB:1965 (58 yo M)Acc No.[id number]:05/15/2024 Progress Notes Patient: Roberto ZAMAN Provider: Sukhdev Corral MD :1965 A ge:58 Y S ex:Male Date:05/15/2024 Address:[address] [place] [phone] Subjective: * Chief Complaints: * H earing [...] and is working. He was born in [place], [place]. * Medications: T akingZyrTEC Allergy 10 MG [...] AB: Lipid Panel 3. O shiva Referral To:[facility] Surgeons Otolaryngology Reason:Evaluate and [...] 07/15/2023 Generated for Gonzalo vasquez/Minerva/eTabidasmitting on: 0 03/19/2025 09:05 AM EDT History and Physical Notes * HPI (History of Present Illness) Category Sub-Category Detail Notes COVID-19 Screening Questions Have you had any new onset fever, chills, cough, congestion, sore throat, shortness of breath, muscle aches?: No Have you been exposed to the virus withi n the last 10 days?: No Have you travelled internationally in [facility] last 10 days?: No Have you [...] Referring Provider Referred Provider Reagan rich 05/15/2024 Landen Corral Surgeons, of [facility], [facility] Evaluate and Treat Bilateral Hearing Loss
--- OUTSIDE RECORDS SUMMARY | 2024-08-25 05:11 | XMS_ITS ---
Author Organization Landen Corral III, MD Address [address] [place] [address] [place] [address] Care Team Providers Care Digital Music Instructor Name Role Phone Landen Corral Primary Care [...] Date Provider Diagnosis Landen Corral III, MD [address] [place] [address] [place] [address] 08/25/2024 Landen Corral Plan Of Treatment Medication Medication Name Sig Start Date Stop Date Notes Azithromycin 250 MG as directed Orally 2 Tablets on the first day, one tablet the rest of the days for 5 days 08/25/2024 08/30/2024 Next Appt Details Provider Name:Landen Corral, 03/21/2025 02:30:00 PM, [address] [place] [address] [place], [address], Progress Notes * Juan Antonio LOAIZAOB:1965 (58 yo M)Acc No.[id number]:08/25/2024 Patient: Sukhdev PRETTYRoberto :1965 A ge:58 Y S ex:Male Address:[address] [place] [phone] * Refills Start Azithromycin Tablet, 250 MG, Orally, 6, as directed, 2 Tablets on the first day, one tablet the rest of the days, 5 days, Refills=0 * true * Date: Generated for Gonzalo vasquez/Minerva/Sonia on: 0 03/19/2025 09:05 AM EDT
--- OUTSIDE RECORDS SUMMARY | 2025-03-19 09:06 | XMS_ITS | Patient Health Record ---
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, [facility], [facility] Referred Provider Specialty Otolaryngolo gy [...] Problem Status W/U Status Risk Notes Problem 7554794 Former smoker (Z87.891) Active confirmed He has a plan for maintenance of abstinence in times of illness and distress. He is highly motivated not to smoke. Problem 66324304 Hyperlipidemia (E78.5) Active confirmed His lipids are stable and no change in his fluvastatin dose was made today. Problem 108510569 Overweight (E66.3) Active confirmed His body mass index is 28. He has lost 2 pounds. We made a plan to continue to lose weight at a rate of one half of a pound per week. Problem Benign prostatic hypertrophy without outflow obstruction (252391630) BPH (benign prostatic hypertrophy) (N40.0) Active confirmed He ariises from sleep on the average twice a night. We discussed modifications in his lifestyle he could make to reduce nocturia. Problem 88096266 Statin intolerance (Z78.9) Active confirmed He has had no myalgias with fluvastatin. He is not allergic to statins. He is intolerant to the last lipid soluble statins. Problem 33182990 Obstructive sleep apnea (G47.33) Active confirmed He will continue using the CPAP. He denies any daytime somnolence. 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) Active confirmed He does [...] Date Provider Diagnosis Landen Corral III, MD [address] [place] [address] [place] [address] 03/20/2024 Landen Corral Overweight E66.3 ; Hyperlipidemia E78.5 ; Former smoker Z87.891 ; Statin intolerance Z78.9 ; Obstructive sleep apnea G47.33 and BPH (benign prostatic hypertrophy) N40.0 Landen Corral III, MD [address] [place] [address] [place] [address] 05/15/2024 Landen Corral Overweight E66.3 ; Hyperlipidemia E78.5 ; BPH (benign prostatic hypertrophy) N40.0 ; Former smoker Z87.891 ; Obstructive sleep apnea G47.33 ; Reactive depression F32.9 and Statin intolerance Z78.9 Landen Corral III, MD [address] [place] [address] [place] [address] 09/13/2024 Landen Corral Overweight E66.3 ; Hyperlipidemia E78.5 ; Former smoker Z87.891 ; Obstructive sleep apnea G47.33 ; Statin intolerance Z78.9 and BPH (benign prostatic hypertrophy) N40.0 Landen Corral III, MD [address] [place] [address] [place] [address] 01/17/2025 Landen Corral Overweight E66.3 ; Hyperlipidemia E78.5 ; Former smoker Z87.891 ; Obstructive sleep apnea G47.33 ; BPH (benign prostatic hypertrophy) N40.0 and Reactive depression F32.9 Landen Corral III, MD [address] [place] [address] [place] [address] 08/25/2024 Landen Corral III, MD [address] [place] [address] [address] [place] [address] 01/10/2025 Landen Ellis Overweight E66.3 Assessments Encounter [...] Order Date PROFILE, FASTING (COMPREHENSIVE METABOLI C) 04/15/2022 PROFILE, FASTING (COMPREHENSIVE METABOLI C) 03/16/2023 PROFILE, FASTING (COMPREHENSIVE METABOLI C) 11/22/2019 PROFILE, FASTING (COMPREHENSIVE METABOLI C) 05/15/2024 PROFILE, FASTING (COMPREHENSIVE METABOLI C) 07/24/2020 PROFILE, FASTING (COMPREHENSIVE METABOLI C) 06/08/2017 PROFILE, FASTING (COMPREHENSIVE METABOLI C) 05/23/2018 PROFILE, [...] PROFILE, FASTING (COMPREHENSIVE METABOLI C) 2018 PROFILE, FASTING (COMPREHENSIVE METABOLI C) 08/01/2021 PROFILE, FASTING (COMPREHENSIVE METABOLI C) 09/13/2024 PROFILE, FASTING (COMPREHENSIVE METABOLI C) 05/22/2019 PROFILE, RANDOM (COMPREHENSIVE METABOLIC ) 10/12/2017 PROFILE, RANDOM (COMPREHENSIVE METABOLIC ) 07/27/2022 LIPID PANEL 2018 LIPID PANEL 08/01/2021 LIPID PANEL 11/30/2022 LIPID PANEL 05/22/2019 LIPID PANEL 03/16/2023 LIPID PANEL 11/22/2019 LIPID PANEL 10/12/2017 LIPID PANEL 07/24/2020 LIPID PANEL 06/08/2017 LIPID PANEL 05/23/2018 LIPID PANEL 12/21/2022 LIPID PANEL 06/09/2017 LIPID PANEL 12/28/2018 LIPID PANEL 08/22/2019 LIPID PANEL 07/27/2022 LIPID PANEL 04/17/2020 LIPID PANEL 01/18/2018 PSA, TOTAL 05/15/2024 PSA, TOTAL 03/16/2023 PSA, TOTAL 10/20/2023 CBC w DIFF 04/17/2020 CBC w DIFF 01/18/2018 CBC w DIFF 09/13/2024 CBC w DIFF 04/15/2022 CBC w DIFF 2018 CBC w DIFF 08/01/2021 CBC w DIFF 05/22/2019 CBC w DIFF 11/22/2019 CBC w DIFF 03/28/2021 CBC w DIFF 10/12/2017 CBC w DIFF 07/24/2020 CBC w DIFF 03/16/2023 CBC w DIFF 06/08/2017 CBC w DIFF 05/23/2018 CBC w DIFF 01/17/2025 CBC w DIFF 12/21/2022 CBC w DIFF 06/09/2017 CBC w DIFF 12/28/2018 CBC w DIFF 08/22/2019 CBC w DIFF 11/26/2020 CBC w DIFF 07/27/2022 HEPATITIS C ANTIBODY 06/09/2017 URINALYSIS - CLEAN CATCH (UA) 03/04/2022 MRI BRAIN NO CONTRAST 02/04/2023 Sleep Study - Diagnostic 10/14/2015 CBC WITH AUTO DIFF 07/16/2023 CBC WITH AUTO DIFF 05/15/2024 CBC WITH AUTO DIFF 10/20/2023 Lipid Panel 11/26/2020 Lipid Panel 07/16/2023 Lipid Panel 09/13/2024 Lipid Panel 04/15/2022 Lipid Panel 03/28/2021 Lipid Panel 05/15/2024 Lipid Panel 03/04/2022 Lipid Panel 01/17/2025 Lipid Panel 10/20/2023 Next Appt Details Provider Name:Landen Corral, 03/21/2025 02:30:00 PM, [address] [place] [address] [address], [address], [place], [address], Insurance Providers Payer Name Payer Address Payer Phone Subscriber Number Group Number Insured Name Patient Relationship to Insured Coverage Start Date Coverage End Date [facility] [address] [facility] [address] [facility] [place] [phone] [id number] Roberto Loaiza Self - patient is the insured Medical (General) History Medical History History ICD Code hyperlipidemia chronic back pain near sighted Overweight Surgical History Surgery Date(Month/Year) No history [facility], [facility] 10 [facility] March 2020 Hospitalization History Reason Date(Month/Year) No history
== END 2025-03-19 08:14 | disposition home or self-care (01) ==
LOC: HO.HMGAL 08:12
PROVIDERS: PCP Internal Medicine Medical Oncology; Visit Provider Registered Nurse Emergency
DX: J30.89 Other allergic rhinitis (principal)
CPT/HCPCS: 95117; 95165

== ENCOUNTER 2025-04-02 08:18 | Outpatient (AMB) | payer OTHER, SELFPAY ==
--- OUTSIDE RECORDS SUMMARY | 2024-08-25 05:11 | XMS_ITS ---
Author Organization Landen Corral III, MD Address [address] [place] [address] [place] [address] Care Team Providers Care Battery Filler Name Role Phone Dr. Landen Corral III [...] Date Provider Diagnosis Landen Corral III, MD [address] [place] [address] [place] [address] 08/25/2024 Landen Corral Plan Of Treatment Medication Medication Name Sig Start Date Stop Date Notes Azithromycin 250 MG as directed Orally 2 Tablets on the first day, one tablet the rest of the days for 5 days 08/25/2024 08/30/2024 Next Appt Details Provider Name:Landen Corral , 07/23/2025 02:30:00 PM, [address] [place] [address] [place], [address], Provider Name:Landen Corral , 03/26/2026 02:30:00 PM, [address] [place] [address] [place], [address], Progress Notes * Juan Antonio LOAIZAOB:1965 (58 yo M)Acc No.[id number]:08/25/2024 Patient: Roberto ZAMAN :1965 A ge:58 Y S ex:Male Address:[address] [place] [phone] * Refills Start Azithromycin Tablet, 250 MG, Orally, 6, as directed, 2 Tablets on the first day, one tablet the rest of the days, 5 days, Refills=0 * true * Date: Generated for Gonzalo vasquez/Minerva/Soraidaitting on: 1 08:37 AM EDT
--- OUTSIDE RECORDS SUMMARY | 2024-09-13 11:00 | XMS_ITS ---
Author Organization Landen Corral III, MD Address [address] [place] [address] [place] [address] Care Team Providers Care Funeral Director/Embalmer/Owner Name Role Phone Dr. Landen Corral III [...] Provider Diagnosis Landen Corral III, MD [address] [place] [address] [address] [address] 09/13/2024 Landen Corral Overweight E66.3 ; Hyperlipidemia [...] Provider Name:Landen Corral , 07/23/2025 02:30:00 PM, [address] [place] [address] [address], [place], [phone], Provider Name:Landen Corral , 03/26/2026 02:30:00 PM, [address] [place] [address] [address], [place], [address], Progress Notes * Juan Antonio LOAIZAOB:1965 (58 yo M)Acc No.[id number]:09/13/2024 Progress Notes Patient: Roberto ZAMAN Provider: Sukhdev Corral MD :1965 A ge:58 Y S ex:Male Date:09/13/2024 Address:[address] [place] [phone] Subjective: * Chief Complaints: * H yperlipidemiaObstructive [...] and is working. He was born in [place]. * Medications: T akingZyrTEC Allergy 10 [...] 0 09/13/2024 Generated for Gonzalo vasquez/Minerva/Soraidaitting on: 08:37 AM EDT History and Physical Notes * [...]
--- OUTSIDE RECORDS SUMMARY | 2025-01-10 10:54 | XMS_ITS ---
Author Organization Landen Corral III, MD Address [address] [place] [address] [place] [address] Care Team Providers Care Manager Community Development Name Role Phone Dr. Landen Corral III Primary Care Provider [phone] REASON FOR VISIT Rx Refill Medications Medication SIG (Take, Route, Frequency, Duration) Notes Start Date End Date Status Fluvastatin Sodium 40 MG TAKE 1 CAPSULE BY MOUTH DAILY Orally once a day for 90 days Active Social History Sex Assigned At : Social History Observation Description Sex Assigned At Male Encounters Encounter Location Date Provider Diagnosis Landen Corral III, MD [address] [place] [address] [place] [address] 01/10/2025 Landen Corral Overweight E66.3 Assessments Encounter [...] Provider Name:Landen Corral , 07/23/2025 02:30:00 PM, [address] [place] [address] [place], [address], Provider Name:Landen Corral , 03/26/2026 02:30:00 PM, [address] [place] [address] [address], [place], [address], Progress Notes * Juan Antonio LOAIZAOB:1965 (59 yo M)Acc No.[id number]:01/10/2025 Patient: Roberto ZAMAN :1965 A ge:59 Y S ex:Male Address:[address] [place] [address] * Refills Refill Fluvastatin Sodium Capsule, 40 MG, Orally, 90, TAKE 1 CAPSULE BY MOUTH DAILY, once a day, 90 days, Refills=3 * true * Date: Generated for Gonzalo vasquez/Minerva/Soraidaitting on: 08:37 AM EDT
--- OUTSIDE RECORDS SUMMARY | 2025-01-17 11:30 | XMS_ITS ---
Author Organization Landen Corral III, MD Address [address] [place] [address] [place] [address] Care Team Providers Care Horse Breaker Name Role Phone Dr. Landen Corral III [...] Date Provider Diagnosis Landen Corral III, MD [address] [place] [address] [address] [place], [place] [phone] 01/17/2025 Landen Corral Overweight E66.3 ; Hyperlipidemia [...] Next Appt Details Follow Up: As Scheduled, [place] son: Annual Exam Provider Name:Landen Corral , 07/23/2025 02:30:00 PM, [address] [place] [address] [address], [place], [address], Provider Name:Landen Corral , 03/26/2026 02:30:00 PM, [address] [place] [address] [address], [place], [address], Progress Notes * Juan Antonio LOAIZAOB:1965 (59 yo M)Acc No.[id number]:01/17/2025 Progress Notes Patient: Roberto ZAMAN Provider: Sukhdev Corral MD :1965 A ge:59 Y S ex:Male Date:01/17/2025 Address:[address] [place] [phone] Subjective: * Chief Complaints: * H yperlipidemiaOverweightSleep [...] * Surgical History: c olonoscopy, based a [facility], every 10 years March 2020No [...] and is working. He was born in [place]. * Medications: T akingZyrTEC Allergy 10 [...] 0 01/17/2025 Generated for Gonzalo vasquez/Minerva/Soraidaitting on: 1 08:38 AM EDT History and Physical Notes * [...]
--- OUTSIDE RECORDS SUMMARY | 2025-03-21 10:30 | XMS_ITS ---
Author Organization Landen Corral III, MD Address [address] [place] [address] [place] [address] Care Team Providers Care Drip Molder Name Role Phone Dr. Landen Corral III [...] Internal M edicine Referred Provider [facility], [facility] Referred Provider Specialty Otolaryngolo gy General [...] Provider Diagnosis Landen Corral III, MD [address] [place] [address] [place] [address] 03/21/2025 Landen Corral Overweight E66.3 ; Hyperlipidemia [...] 03/21/2025, Evaluate and Treat Throat Pain, of [facility], [facility] Surgeons Next Appt Details Follow Up: 4 Months, Reason: OV Provider Name:Landen Corral , 07/23/2025 02:30:00 PM, [address] [place] [address] [address], [place], [address], Provider Name:Landen Corral , 03/26/2026 02:30:00 PM, [address] [place] [address] [address], [place], [address], Progress Notes * JOSSE Juan AntonioOB:1965 (59 yo M)Acc No.[id number]:03/21/2025 Progress Notes Patient: Roberto ZAMAN Provider: Sukhdev Corral MD :1965 A ge:59 Y S ex:Male Date:03/21/2025 Address:[address] [place] [id number] Subjective: * Chief Complaints: * A nnual Exam * HPI: D epression Screening: He returns to the office for his annual examination. Since his last visit he has been healthy and well. He has noted occasional heartburn for which he takes wyyd-pip-dhvpfxt medication with success. He is using his [...] * Surgical History: c olonoscopy, based a [facility], every 10 years March 2020No history [...] and is working. He was born in [place], [place]. * Medications: T akingFluvastatin Sodium 40 MG [...] Referral To:[facility], [facility] Surgeons Otolaryngology Reason:Evaluate and [...] Corral MD Date: 0 03/21/2025 Generated for [employer]/Faechog/eTransmitting on: 1 08:37 AM EDT History and Physical Notes [...] Not layla 03/21/2025 Landen Corral Surgeons, of [facility], [facility] Evaluate and Treat Throat Pain
--- OUTSIDE RECORDS SUMMARY | 2025-04-02 08:38 | XMS_ITS | Patient Health Record ---
Author Organization Landen Corral III, MD Address [address] [place] [address] [place] [address] Care Team Providers Care Financial Reporting Advisor Name Role Phone Dr. Landen Corral III Primary Care Provider Allergies Allergen (clinical drug ingredient) Drug/Non Drug Allergy documented on EMR Reaction Allergy Type Onset Date Status Lactose Intolerance Unknown Allergy Active Statins Support muscle pain Drug Allergy Active environmental (uncoded) Unknown Allergy Active insects (uncoded) Unknown Allergy Ac tive Reason For Referral Reason Evaluate and Treat Bilateral Hearing Loss Diagnosis 1 Bilateral hearing lo ss, unspecified hearing loss type (H91.93) Referral Organization Landen Corral III, MD Referring Provider First Name Landen Referring Provider Last Name Ellis Referring Provider Speciality Internal edicine [facility] Provider Specialty Otolaryngolo gy General Notes D, Maritza 05/18/2024 10:38:44 AM > Cover sheet, referral and progress note faxed Referral Priority Routine Referral Appointment Date 09/27/2024 Reason Evaluate and Treat Throat Pain Diagnosis 1 Throat pain (R07.0) Referral Organization Landen Corral III, MD Referring Provider First Name Landen Referring Provider Last Name Corral Referring Provider Speciality Internal M edicine Referred Provider [facility], [facility] Referred Provider Specialty Otolaryngolo gy General Notes D, Maritza 03/26/2025 12:48:15 PM > cover sheet, referral and progress note faxed. Referral Priority Routine Medications Medication SIG (Take, Route, Frequency, Duration) [...] Unknown 01/24/2022 Administered Tdap Unknown 03/05/2022 Administered Comirnaty Pfizer COVID-19 12+ Unknown 03/17/2023 Admini stered Flu-IIv4pf Unknown 03/17/2023 Administered COVID Moderna Bivalent Unknown 03/05/2022 Administered RSV Adjuvant Unknown 04/03/2024 Administered Flu-IIv4pf Unknown 03/24/2018 Administered COVID 19 Moderna Unknown 11/06/2021 Administered Influenza no Preserv 3 and > Unknown 04/03/2021 Adminis tered Flu-IIv4pf Unknown 04/05/2017 Administered Flu-IIv4pf Unknown 03/13/2020 Administered Comirnaty Pfizer COVID-19 12+ Unknown 04/03/2024 Admini stered Social History Tobacco Use: Social History Observation [...] Problem Status W/U Status Risk Notes Problem 9338965 Former smoker (Z87.891) Active confirmed He has a plan for maintenance of abstinence in times of illness and distress. He is highly motivated not to smoke. Problem 36338893 Hyperlipidemia (E78.5) Active confirmed The only statin which he can tolerate his fluvastatin. He is on a maximum dose at this time with a total cholesterol near his target range. We have discussed weight reduction, dietary means to reduce cholesterol and increasing physical activity. Problem 573560343 Overweight (E66.3) Active confirmed His body mass index is 28. We made a plan to continue to lose weight at a rate of one half of a pound per week.His weight is increasing as his systolic blood pressure. There is trying to restrict sodium and increase physical activity and attempt to lose enough weight to have a normal body mass index Problem Benign prostatic hypertrophy without outflow obstruction (268223906) BPH (benign prostatic hypertrophy) (N40.0) Active confirmed He has been rising from sleep about once a night to urinate. We have reviewed lifestyle modification she could back to reduce this. Problem 77846543 Statin intolerance (Z78.9) Active confirmed He has had no myalgias with fluvastatin. He is not allergic to statins. He is intolerant to the last lipid soluble statins. Problem 12939816 Obstructive sleep apnea (G47.33) Active confirmed He will continue using the CPAP. He denies any daytime somnolence. Problem Hearing loss (30938581) Bilateral hearing loss, unspecified hearing loss type (H91.93) Active confirmed Problem 97270553 Reactive depression (F32.9) Active confirmed He does not feel depressed lately. His depression is in remission and he is doing well. Vital Signs Heart Rate 76 /min 03/21/2025 Temperature 98.1 degrees Fahrenheit 03/21/2025 Blood pressure diastolic 78 mm Hg 03/21/2025 Height 70 in 03/21/2025 Blood pressure systolic 140 mm Hg 03/21/2025 Weight 197 lbs 03/21/2025 BMI 28.26 kg/m2 03/21/2025 Encounters Encounter Location Date Provider Diagnosis Landen Corral III, MD [address] [place] [address] [place] [address] 05/15/2024 Landen Corral Overweight E66.3 ; Hyperlipidemia E78.5 ; BPH (benign prostatic hypertrophy) N40.0 ; Former smoker Z87.891 ; Obstructive sleep apnea G47.33 ; Reactive depression F32.9 and Statin intolerance Z78.9 Landen Corral III, MD [address] [place] [address] [place] [address] 09/13/2024 Landen Corral Overweight E66.3 ; Hyperlipidemia E78.5 ; Former smoker Z87.891 ; Obstructive sleep apnea G47.33 ; Statin intolerance Z78.9 and BPH (benign prostatic hypertrophy) N40.0 Landen Corral III, MD [address] [place] [address] [place] [address] 01/17/2025 Landen Corral Overweight E66.3 ; Hyperlipidemia E78.5 ; Former smoker Z87.891 ; Obstructive sleep apnea G47.33 ; BPH (benign prostatic hypertrophy) N40.0 and Reactive depression F32.9 Landen Corral III, MD [address] [place] [address] [address] [place] [address] 03/21/2025 Landen Ellis Overweight E66.3 ; Hyperlipidemia E78.5 ; BPH (benign prostatic hypertrophy) N40.0 ; Former smoker Z87.891 ; Statin intolerance Z78.9 and Obstructive sleep apnea G47.33 Landen Corral III, MD [address] [place] [address] [place] [address] 08/25/2024 Landen Corral III, MD [address] [place] [address] [place] [address] 01/10/2025 Landen Corral Overweight E66.3 Assessments Encounter Date Diagnosis (ICD Code) Assessment Notes Treat ment Notes Treatment Clinical Notes 05/15/2024 Hyperlipidemia (ICD-10 - E78.5) His lipids [...] one half of a pound per week. 03/21/2025 Hyperlipidemia (ICD-10 - E78.5) The only statin which he can tolerate his fluvastatin. He is on a maximum dose at this time with a total cholesterol near his target range. We have discussed weight reduction, dietary means to reduce cholesterol and increasing physical activity. 03/21/2025 Overweight (ICD-10 - E66.3) His body mass index is 28. We made a plan to continue to lose weight at a rate of one half of a pound per week.His weight is increasing as his systolic blood pressure. There is trying to restrict sodium and increase physical activity and attempt to lose enough weight to have a normal body mass index 01/10/2025 Overweight (ICD-10 - E66.3) His body mass index is 28. He has lost 2 pounds. We made a plan to continue to lose weight at a rate of one half of a pound per week. 05/15/2024 BPH (benign prostati c hypertrophy) (ICD-10 [...] is highly motivated not to smoke. 03/21/2025 BPH (benign prostati c hypertrophy) (ICD-10 - N40.0) He has been rising from sleep about once a night to urinate. We have reviewed lifestyle modification she could back to reduce this. 05/15/2024 Former smoker (ICD-1 0 - Z87.891) [...] the CPAP. He denies any daytime somnolence. 03/21/2025 Former smoker (ICD-1 0 - Z87.891) [...] lifestyle he could make to reduce nocturia. 03/21/2025 Statin intolerance (ICD-10 - Z78.9) He has had no myalgias with fluvastatin. He is not allergic to statins. He is intolerant to the last lipid soluble statins. 05/15/2024 Reactive depression (ICD-10 - F32.9) He [...] in remission and he is doing well. 03/21/2025 Obstructive sleep apnea (ICD-10 - G47.33) He will continue using the CPAP. He denies any daytime somnolence. 05/15/2024 Statin intolerance (ICD-10 - Z78.9) He [...] C) 07/24/2020 PROFILE, FASTING (COMPREHENSIVE METABOLI C) 03/21/2025 PROFILE, FASTING (COMPREHENSIVE METABOLI C) 05/23/2018 PROFILE, [...] C) 09/13/2024 PROFILE, FASTING (COMPREHENSIVE METABOLI C) 06/08/2017 PROFILE, FASTING (COMPREHENSIVE METABOLI C) 05/22/2019 PROFILE, RANDOM (COMPREHENSIVE METABOLIC ) 10/12/2017 PROFILE, RANDOM (COMPREHENSIVE METABOLIC ) 07/27/2022 LIPID PANEL 2018 LIPID PANEL 08/01/2021 LIPID PANEL 11/30/2022 LIPID PANEL 06/08/2017 LIPID PANEL 05/22/2019 LIPID PANEL 03/16/2023 LIPID PANEL 11/22/2019 LIPID PANEL 10/12/2017 LIPID PANEL 07/24/2020 LIPID PANEL 05/23/2018 LIPID PANEL 12/21/2022 LIPID PANEL 06/09/2017 LIPID PANEL 12/28/2018 LIPID PANEL 08/22/2019 LIPID PANEL 07/27/2022 LIPID PANEL 04/17/2020 LIPID PANEL 01/18/2018 PSA, TOTAL 05/15/2024 PSA, TOTAL 03/21/2025 PSA, TOTAL 03/16/2023 PSA, TOTAL 10/20/2023 CBC w DIFF 04/17/2020 CBC w DIFF 01/18/2018 CBC w DIFF 09/13/2024 CBC w DIFF 04/15/2022 CBC w DIFF 2018 CBC w DIFF 08/01/2021 CBC w DIFF 06/08/2017 CBC w DIFF 05/22/2019 CBC w DIFF 11/22/2019 CBC w DIFF 03/28/2021 CBC w DIFF 10/12/2017 CBC w DIFF 07/24/2020 CBC w DIFF 03/21/2025 CBC w DIFF 03/16/2023 CBC w DIFF [...] Panel 03/28/2021 Lipid Panel 05/15/2024 Lipid Panel 03/21/2025 Lipid Panel 03/04/2022 Lipid Panel 01/17/2025 Lipid Panel 10/20/2023 Next Appt Details Provider Name:Landen Corral , 07/23/2025 02:30:00 PM, [address] [facility] [address], [place], [address], Provider Name:Landen Corral , 03/26/2026 02:30:00 PM, [address] [facility] [place], [address], Insurance Providers Payer Name Payer Address Payer Phone Subscriber Number Group Number Insured Name Patient Relationship to Insured Coverage Start Date Coverage End Date [facility] [employer] [address] [facility] [place] [phone] [id number] Roberto Loaiza Self - patient is the insured Medical (General) History Medical History History ICD Code hyperlipidemia chronic back pain near sighted Overweight Surgical History Surgery Date(Month/Year) No history [facility] March 2020 Hospitalization History Reason Date(Month/Year) No history
== END 2025-04-02 09:03 | disposition home or self-care (01) ==
LOC: HO.HMGAL 08:18
PROVIDERS: PCP Internal Medicine Medical Oncology; Visit Provider Registered Nurse Emergency
DX: J30.89 Other allergic rhinitis (principal)
CPT/HCPCS: 95117; 95165

== ENCOUNTER 2025-04-11 08:21 | Outpatient (AMB) | payer OTHER, SELFPAY ==
--- OUTSIDE RECORDS SUMMARY | 2024-08-25 05:11 | XMS_ITS ---
Author Organization Landen Corral III, MD Address [address] [place] [address] [place] [address] Care Team Providers Care Heel Cover Splitter Name Role Phone Dr. Landen Corral III [...] Date Provider Diagnosis Landen Corral III, MD [address] [place] [address] [place] [address] 08/25/2024 Landen Corral Plan Of Treatment Medication Medication Name Sig Start Date Stop Date Notes Azithromycin 250 MG as directed Orally 2 Tablets on the first day, one tablet the rest of the days for 5 days 08/25/2024 08/30/2024 Next Appt Details Provider Name:Landen Corral , 07/23/2025 02:30:00 PM, [address] [place] [address] [place], [address], Provider Name:Landen Corral , 03/26/2026 02:30:00 PM, [address] [place] [address] [place], [address], Progress Notes * Juan Antonio LOAIZAOB:1965 (58 yo M)Acc No.[id number]:08/25/2024 Patient: Roberto ZAMAN :1965 A ge:58 Y S ex:Male Address:[address] [place] [phone] * Refills Start Azithromycin Tablet, 250 MG, Orally, 6, as directed, 2 Tablets on the first day, one tablet the rest of the days, 5 days, Refills=0 * true * Date: Generated for Gonzalo vasquez/Minerva/Soraidaitting on: 1 08:41 AM EDT
--- OUTSIDE RECORDS SUMMARY | 2024-09-13 11:00 | XMS_ITS ---
Author Organization Landen Corral III, MD Address [address] [place] [address] [place] [address] Care Team Providers Care Cabbage Salter Name Role Phone Dr. Landen Corral III [...] Date Provider Diagnosis Landen Corral III, MD [address] [place] [address] [address] [address] 09/13/2024 Landen Corral Overweight E66.3 ; Hyperlipidemia [...] Provider Name:Landen Corral , 07/23/2025 02:30:00 PM, [address] [place] [address] [address], [place], [address], Provider Name:Landen Corral , 03/26/2026 02:30:00 PM, [address] [place] [address] [address], [place], [address], Progress Notes * Juan Antonio LOAIZAOB:1965 (58 yo M)Acc No.[id number]:09/13/2024 Progress Notes Patient: Roberto ZAMAN Provider: Sukhdev Corral MD :1965 A ge:58 Y S ex:Male Date:09/13/2024 Address:[address] [place] [phone] Subjective: * Chief Complaints: * H yperlipidemiaObstructive [...] and is working. He was born in [place]. * Medications: T akingZyrTEC Allergy 10 [...] 0 09/13/2024 Generated for Gonzalo vasquez/Minerva/Soraidaitting on: 08:41 AM EDT History and Physical Notes * [...]
--- OUTSIDE RECORDS SUMMARY | 2025-01-10 10:54 | XMS_ITS ---
Author Organization Landen Corral III, MD Address [address] [place] [address] [place] [address] Care Team Providers Care Welding Machine Operator Resistance Name Role Phone Dr. Landen Corral III [...] Encounters Encounter Location Date Provider Diagnosis Landen Corrla III, MD [address] [place] [address] [place] [address] 01/10/2025 Landen Corral Overweight E66.3 Assessments Encounter [...] Provider Name:Landen Corral , 07/23/2025 02:30:00 PM, [address] [place] [address] [place], [address], Provider Name:Landen Corral , 03/26/2026 02:30:00 PM, [address] [place] [address] [address], [place], [address], Progress Notes * Juan Antonio LOAIZAOB:1965 (59 yo M)Acc No.[id number]:01/10/2025 Patient: Roberto ZAMAN :1965 A ge:59 Y S ex:Male Address:[address] [place] [address] * Refills Refill Fluvastatin Sodium Capsule, 40 MG, Orally, 90, TAKE 1 CAPSULE BY MOUTH DAILY, once a day, 90 days, Refills=3 * true * Date: Generated for Gonzalo vasquez/Minerva/Soraidaitting on: 08:41 AM EDT
--- OUTSIDE RECORDS SUMMARY | 2025-01-17 11:30 | XMS_ITS ---
Author Organization Landen Corral III, MD Address [address] [place] [address] [place] [address] Care Team Providers Care Armature Bander Name Role Phone Dr. Landen Corral III Primary Care Provider [phone] Allergies Allergen (clinical drug ingredient) Drug/Non Drug [...] Provider Diagnosis Landen Corral III, MD [address] [place] [address] [address] [place], [place] [address] 01/17/2025 Landen Corral Overweight E66.3 ; Hyperlipidemia [...] Provider Name:Landen Corral , 07/23/2025 02:30:00 PM, [address] [place] [address] [address], [place], [address], Provider Name:Landen Corral , 03/26/2026 02:30:00 PM, [address] [place] [address] [address], [place], [address], Progress Notes * Juan Antonio LOAIZAOB:1965 (59 yo M)Acc No.[id number]:01/17/2025 Progress Notes Patient: Roberto ZAMAN Provider: Sukhdev Corral MD :1965 A ge:59 Y S ex:Male Date:01/17/2025 Address:[address] [place] [phone] Subjective: * Chief Complaints: * H yperlipidemiaOverweightSleep [...] * Surgical History: c olonoscopy, based a [facility], every 10 years March 2020No history [...] and is working. He was born in [place]. * Medications: T akingZyrTEC Allergy 10 [...] MD Date: 0 01/17/2025 Generated for Gonzalo vasquez/Minerva/Soraidaitting on: 08:41 AM [...]
--- OUTSIDE RECORDS SUMMARY | 2025-03-21 10:30 | XMS_ITS ---
Author Organization Landen Corral III, MD Address [address] [place] [address] [place] [address] Care Team Providers Care Marble And Granite Polisher Name Role Phone Dr. Landen Corral III [...] Internal M edicine Referred Provider [facility], [facility] Referred Provider Specialty Otolaryngolo gy General [...] Date Provider Diagnosis Landen Corral III, MD [address] [place] [address] [place] [address] 03/21/2025 Landen Corral Overweight E66.3 ; Hyperlipidemia [...] Treat Throat Pain, of [facility], [facility] Surgeons Next Appt Details Follow Up: 4 Months, Reason: OV Provider Name:Landen Corral , 07/23/2025 02:30:00 PM, [address] [place] [address] [address], [place], [address], Provider Name:Landen Corral , 03/26/2026 02:30:00 PM, [address] [place] [address] [address], [place], [address], Progress Notes * JOSSE Juan AntonioOB:1965 (59 yo M)Acc No.[id number]:03/21/2025 Progress Notes Patient: Roberto ZAMAN Provider: Sukhdev Corral MD :1965 A ge:59 Y S ex:Male Date:03/21/2025 Address:[address] [place] [id number] Subjective: * Chief Complaints: * A nnual Exam * HPI: D epression Screening: He returns to the office for his annual examination. Since his last visit he has been healthy and well. He has noted occasional heartburn for which he takes zhcn-ewj-zadmgvw medication with success. He is using his [...] * Surgical History: c olonoscopy, based a [facility], every 10 years March 2020No history [...] and is working. He was born in [place], [place]. * Medications: T akingFluvastatin Sodium 40 MG [...] AB: Lipid Panel 4. O thers Referral To:[facility], [facility] Surgeons Otolaryngology Reason:Evaluate and Treat Throat [...] Corral MD Date: 0 03/21/2025 Generated for [employer] ng/Faechog/eTransmitting on: 1 08:41 AM EDT History and Physical Notes [...] Landen Corral Surgeons, of [facility], [facility] Evaluate and Treat Throat Pain
--- OUTSIDE RECORDS SUMMARY | 2025-04-11 08:42 | XMS_ITS | Patient Health Record ---
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 Landen Corral [...] Provider Speciality Internal edicine [facility]erred Provider Specialty Otolaryngolo gy General [...] Internal M edicine Referred Provider [facility], [facility] Referred Provider Specialty Otolaryngolo gy General [...] Problem Status W/U Status Risk Notes Problem 7794558 Former smoker (Z87.891) Active confirmed He has a plan for maintenance of abstinence in times of illness and distress. He is highly motivated not to smoke. Problem 69361906 Hyperlipidemia (E78.5) Active confirmed The only statin which he can tolerate his fluvastatin. He is on a maximum dose at this time with a total cholesterol near his target range. We have discussed weight reduction, dietary means to reduce cholesterol and increasing physical activity. Problem 442077005 Overweight (E66.3) Active confirmed His body mass [...] Problem Benign prostatic hypertrophy without outflow obstruction (958153495) BPH (benign prostatic hypertrophy) (N40.0) Active confirmed He has been rising from sleep about once a night to urinate. We have reviewed lifestyle modification she could back to reduce this. Problem 27801859 Statin intolerance (Z78.9) Active confirmed He has had no myalgias with fluvastatin. He is not allergic to statins. He is intolerant to the last lipid soluble statins. Problem 77439744 Obstructive sleep apnea (G47.33) Active confirmed He will continue using the CPAP. He denies any daytime somnolence. Problem Hearing loss (14254391) Bilateral hearing loss, unspecified hearing loss type (H91.93) Active confirmed Problem 60901892 Reactive depression (F32.9) Active confirmed He does [...] Provider Diagnosis Landen Corral III, MD [address] [place] [address] [place] [address] 05/15/2024 Landen Corral Overweight E66.3 ; Hyperlipidemia E78.5 ; BPH (benign prostatic hypertrophy) N40.0 ; Former smoker Z87.891 ; Obstructive sleep apnea G47.33 ; Reactive depression F32.9 and Statin intolerance Z78.9 Landen Corral III, MD [address] [place] [address] [place] [address] 09/13/2024 Landen Corral Overweight E66.3 ; Hyperlipidemia E78.5 ; Former smoker Z87.891 ; Obstructive sleep apnea G47.33 ; Statin intolerance Z78.9 and BPH (benign prostatic hypertrophy) N40.0 Landen Corral III, MD [address] [place] [address] [place] [address] 01/17/2025 Landen Corral Overweight E66.3 ; Hyperlipidemia E78.5 ; Former smoker Z87.891 ; Obstructive sleep apnea G47.33 ; BPH (benign prostatic hypertrophy) N40.0 and Reactive depression F32.9 Landen Corral III, MD [address] [place] [address] [address] [place] [address] 03/21/2025 Landen Ellis Overweight E66.3 ; Hyperlipidemia E78.5 ; BPH (benign prostatic hypertrophy) N40.0 ; Former smoker Z87.891 ; Statin intolerance Z78.9 and Obstructive sleep apnea G47.33 Landen Corral III, MD [address] [place] [address] [place] [address] 08/25/2024 Landen Corral III, MD [address] [place] [address] [place] [address] 01/10/2025 Landen Corral Overweight E66.3 Assessments Encounter [...] Order Date PROFILE, FASTING (COMPREHENSIVE METABOLI C) 05/22/2019 PROFILE, FASTING (COMPREHENSIVE METABOLI C) 04/15/2022 PROFILE, FASTING (COMPREHENSIVE METABOLI C) 11/22/2019 PROFILE, FASTING (COMPREHENSIVE METABOLI C) 03/16/2023 PROFILE, FASTING (COMPREHENSIVE METABOLI C) 03/21/2025 PROFILE, FASTING (COMPREHENSIVE METABOLI C) 05/15/2024 PROFILE, FASTING (COMPREHENSIVE METABOLI C) 07/24/2020 PROFILE, FASTING (COMPREHENSIVE METABOLI C) 05/23/2018 PROFILE, FASTING (COMPREHENSIVE METABOLI C) 03/28/2021 PROFILE, FASTING (COMPREHENSIVE METABOLI C) 12/21/2022 PROFILE, FASTING (COMPREHENSIVE METABOLI C) 06/09/2017 PROFILE, FASTING (COMPREHENSIVE METABOLI C) 10/20/2023 PROFILE, FASTING (COMPREHENSIVE METABOLI C) 12/28/2018 PROFILE, FASTING (COMPREHENSIVE METABOLI C) 01/17/2025 PROFILE, FASTING (COMPREHENSIVE METABOLI C) 03/04/2022 PROFILE, FASTING (COMPREHENSIVE METABOLI C) 08/22/2019 PROFILE, FASTING (COMPREHENSIVE METABOLI C) 04/17/2020 PROFILE, FASTING (COMPREHENSIVE METABOLI C) 01/18/2018 PROFILE, FASTING (COMPREHENSIVE METABOLI C) 11/26/2020 PROFILE, FASTING (COMPREHENSIVE METABOLI C) 07/16/2023 PROFILE, FASTING (COMPREHENSIVE METABOLI C) 2018 PROFILE, FASTING (COMPREHENSIVE METABOLI C) 09/13/2024 PROFILE, FASTING (COMPREHENSIVE METABOLI C) 08/01/2021 PROFILE, FASTING (COMPREHENSIVE METABOLI C) 06/08/2017 PROFILE, RANDOM (COMPREHENSIVE METABOLIC ) 10/12/2017 PROFILE, RANDOM (COMPREHENSIVE METABOLIC ) 07/27/2022 LIPID PANEL 2018 LIPID PANEL 08/01/2021 LIPID PANEL 06/08/2017 LIPID PANEL 11/30/2022 LIPID PANEL 05/22/2019 LIPID PANEL 11/22/2019 LIPID PANEL 03/16/2023 LIPID PANEL 10/12/2017 LIPID PANEL 07/24/2020 LIPID PANEL 05/23/2018 LIPID PANEL 12/21/2022 LIPID PANEL 06/09/2017 LIPID PANEL 12/28/2018 LIPID PANEL 08/22/2019 LIPID PANEL 07/27/2022 LIPID PANEL 04/17/2020 LIPID PANEL 01/18/2018 PSA, TOTAL 03/21/2025 PSA, TOTAL 05/15/2024 PSA, TOTAL 03/16/2023 PSA, TOTAL 10/20/2023 CBC w DIFF 11/26/2020 CBC w DIFF 07/27/2022 CBC w DIFF 04/17/2020 CBC w DIFF 09/13/2024 CBC w DIFF 01/18/2018 CBC w DIFF 04/15/2022 CBC w DIFF 2018 CBC w DIFF 08/01/2021 CBC w DIFF 06/08/2017 CBC w DIFF 05/22/2019 CBC w DIFF 11/22/2019 CBC w DIFF 03/28/2021 CBC w DIFF 03/21/2025 CBC w DIFF 10/12/2017 CBC w DIFF 07/24/2020 CBC w DIFF 01/17/2025 CBC w DIFF 03/16/2023 CBC w DIFF 05/23/2018 CBC w DIFF 12/21/2022 CBC w DIFF 06/09/2017 CBC w DIFF 12/28/2018 CBC w DIFF 08/22/2019 HEPATITIS C ANTIBODY 06/09/2017 URINALYSIS - CLEAN CATCH (UA) 03/04/2022 MRI BRAIN NO CONTRAST 02/04/2023 Sleep Study - Diagnostic 10/14/2015 CBC WITH AUTO DIFF 07/16/2023 CBC WITH AUTO DIFF 05/15/2024 CBC WITH AUTO DIFF 10/20/2023 Lipid Panel 10/20/2023 Lipid Panel 11/26/2020 Lipid Panel 07/16/2023 Lipid Panel 09/13/2024 Lipid Panel 04/15/2022 Lipid Panel 05/15/2024 Lipid Panel 03/28/2021 Lipid Panel 03/21/2025 Lipid Panel 01/17/2025 Lipid Panel 03/04/2022 Next Appt Details Provider Name:Landen Corral , 07/23/2025 02:30:00 PM, [address] [facility] [address], [place], [address], Provider Name:Landen Corral , 03/26/2026 02:30:00 PM, [address] [facility] [place], [address], Insurance Providers Payer Name Payer Address Payer Phone Subscriber Number Group Number Insured Name Patient Relationship to Insured Coverage Start Date Coverage End Date [facility] [address] [facility] [place] [phone] [id number] Roberto Loaiza Self - patient is the insured Medical (General) History Medical History History ICD Code hyperlipidemia chronic back pain near sighted Overweight Surgical History Surgery Date(Month/Year) No history colonoscopy, based [facility] March 2020 Hospitalization History Reason Date(Month/Year) No history
== END 2025-04-11 08:22 | disposition home or self-care (01) ==
LOC: HO.HMGAL 08:21
PROVIDERS: PCP Internal Medicine Medical Oncology; Visit Provider Registered Nurse Emergency
DX: J30.89 Other allergic rhinitis (principal)
CPT/HCPCS: 95117; 95165

== ENCOUNTER 2025-04-16 09:52 | Outpatient (AMB) | payer OTHER, SELFPAY | END 2025-04-16 09:52 | disposition home or self-care (01) | LOC: HO.HMGAL 09:52 | PROVIDERS: PCP Internal Medicine Medical Oncology; Visit Provider Registered Nurse Emergency | DX: J30.89 Other allergic rhinitis (principal) | CPT/HCPCS: 95117; 95165 ==

== ENCOUNTER 2025-04-23 08:15 | Outpatient (AMB) | payer OTHER, SELFPAY ==
--- OUTSIDE RECORDS SUMMARY | 2024-03-20 10:30 | XMS_ITS ---
Author Organization Landen Corral III, MD Address [address] [place] [address] [place] [address] Care Team Providers Care State Farm Agent Name Role Phone Dr. Landen Corral III Primary Care Provider [phone] Allergies Allergen (clinical drug ingredient) Drug/Non Drug [...] Date Provider Diagnosis Landen Corral III, MD [address] [place] [address] [address] [place], [place] [address] 03/20/2024 Landen Corral Overweight E66.3 ; Hyperlipidemia [...] Name:Landen Henao Ellis , 07/23/2025 02:30:00 PM, [address] [place] [address] [address], [place], [address], Provider Name:Landen Henao Ellis , 03/26/2026 02:30:00 PM, [address] [place] [address] [address], [place], [address], Progress Notes * Aniya LOAIZACorwinOB:1965 (58 yo M)Acc No.[id number]:03/20/2024 Progress Notes Patient: Roberto ZAMAN Provider: Sukhdev Corral MD :1965 A ge:58 Y S ex:Male Date:03/20/2024 Address:[address] [place] [phone] Subjective: * Chief Complaints: * A nnual [...] and is working. He was born in [place]. * Medications: T akingZyrTEC Allergy 10 [...] 03/20/2024 Generated for Gonzalo vasquez/Minerva/eTransmitting on: 1 08:30 AM EDT History and Physical Notes * HPI (History [...]
--- OUTSIDE RECORDS SUMMARY | 2024-05-15 11:00 | XMS_ITS ---
Author Organization Landen Corral III, MD Address [address] [place] [address] [place] [address] Care Team Providers Care Technical Service Representative Name Role Phone Dr. Landen Corral III Primary Care Provider [phone] Allergies Allergen (clinical drug ingredient) Drug/Non Drug [...] Referred Provider [facility] Surgeons, [facility], [facility] Referred Provider Specialty Otolaryngolo gy General Notes [...] Date Provider Diagnosis Landen Corral III, MD [address] [place] [address] [place] [address] 05/15/2024 Landen Corral Overweight E66.3 ; Hyperlipidemia [...] and Treat Bilateral Hearing Loss, of [facility], [facility] E.N[facility]T. Surgeons Next Appt Details Follow Up: 4 Months, Three t imes a year, Reason: OV, Regular Checkup Provider Name:Landen Corral , 07/23/2025 02:30:00 PM, [address] [place] [address] [address], [place], [address], Provider Name:Landen Corral , 03/26/2026 02:30:00 PM, [address] [place] [address] [address], [place], [address], Progress Notes * JOSSE AfiaisDOB:1965 (58 yo M)Acc No.[id number]:05/15/2024 Progress Notes Patient: Roberto ZAMAN Provider: Sukhdev Corral MD :1965 A ge:58 Y S ex:Male Date:05/15/2024 Address:[address] [place], [place] [phone] Subjective: * Chief Complaints: * H earing [...] * Surgical History: c olonoscopy, based a [facility], every 10 years March 2020No history * [...] and is working. He was born in [place], [place]. * Medications: T akingZyrTEC Allergy 10 MG [...] Lipid Panel 3. O thers Referral To:of [facility]T. Surgeons Otolaryngology Reason:Evaluate and Treat Bilateral [...] Corral MD Date: 07/15/2023 Generated for Printi ng/Faxing/eTransmitting on: 08:29 AM EDT History and Physical Notes * HPI (History of Present Illness) Category Sub-Category Detail Notes COVID-19 Screening Questions Have you had any new onset fever, chills, cough, congestion, sore throat, shortness of breath, muscle aches?: No Have you been exposed to the virus withi n the last 10 days?: No Have you travelled internationally in [facility] last 10 days?: No Have you [...] layla 05/15/2024 Landen Corral Surgeons, of [facility], [facility] Evaluate and Treat Bilateral Hearing Loss
--- OUTSIDE RECORDS SUMMARY | 2024-08-25 05:11 | XMS_ITS ---
Author Organization Landen Corral III, MD Address [address] [place] [address] [place] [address] Care Team Providers Care Bed Operator Name Role Phone Dr. Landen Corral [...] Date Provider Diagnosis Landen Corral III, MD [address] [place] [address] [place] [address] 08/25/2024 Landen Corral Plan Of Treatment Medication Medication Name Sig Start Date Stop Date Notes Azithromycin 250 MG as directed Orally 2 Tablets on the first day, one tablet the rest of the days for 5 days 08/25/2024 08/30/2024 Next Appt Details Provider Name:Landen Corral , 07/23/2025 02:30:00 PM, [address] [place] [address] [place], [address], Provider Name:Landen Corral , 03/26/2026 02:30:00 PM, [address] [place] [address] [place], [address], Progress Notes * Juan Antonio LOAIZAOB:1965 (58 yo M)Acc No.[id number]:08/25/2024 Patient: Roberto ZAMAN :1965 A ge:58 Y S ex:Male Address:[address] [place] [phone] * Refills Start Azithromycin Tablet, 250 MG, Orally, 6, as directed, 2 Tablets on the first day, one tablet the rest of the days, 5 days, Refills=0 * true * Date: Generated for Gonzalo vasquez/Minerva/Soraidaitting on: 1 08:29 AM EDT
--- OUTSIDE RECORDS SUMMARY | 2024-09-13 11:00 | XMS_ITS ---
Author Organization Landen Corral III, MD Address [address] [place] [address] [place] [address] Care Team Providers Care Powder Operator Name Role Phone Dr. Landen Corral [...] Date Provider Diagnosis Landen Corral III, MD [address] [place] [address] [address] [address] 09/13/2024 Landen Corral Overweight E66.3 ; Hyperlipidemia [...] Provider Name:Landen Corral , 07/23/2025 02:30:00 PM, [address] [place] [address] [address], [place], [address], Provider Name:Landen Corral , 03/26/2026 02:30:00 PM, [address] [place] [address] [address], [place], [address], Progress Notes * Juan Antonio LOAIZAOB:1965 (58 yo M)Acc No.[id number]:09/13/2024 Progress Notes Patient: Roberto ZAMAN Provider: Sukhdev Corral MD :1965 A ge:58 Y S ex:Male Date:09/13/2024 Address:[address] [place] [phone] Subjective: * Chief Complaints: * H yperlipidemiaObstructive [...] and is working. He was born in [place]. * Medications: T akingZyrTEC Allergy 10 [...] 0 09/13/2024 Generated for Gonzalo vasquez/Minerva/Soraidaitting on: 08:30 AM EDT History and Physical Notes [...]
--- OUTSIDE RECORDS SUMMARY | 2025-01-10 10:54 | XMS_ITS ---
Author Organization Landen Corral III, MD Address [address] [place] [address] [place] [address] Care Team Providers Care Farm Operations Manager Name Role Phone Dr. Landen Corral III [...] Date Provider Diagnosis Landen Corral III, MD [address] [place] [address] [place] [address] 01/10/2025 Landen Corral Overweight E66.3 Assessments Encounter [...] Provider Name:Landen Corral , 07/23/2025 02:30:00 PM, [address] [place] [address] [place], [address], Provider Name:Landen Corral , 03/26/2026 02:30:00 PM, [address] [place] [address] [address], [place], [address], Progress Notes * Juan Antonio LOAIZAOB:1965 (59 yo M)Acc No.[id number]:01/10/2025 Patient: Roberto ZAMAN :1965 A ge:59 Y S ex:Male Address:[address] [place] [address] * Refills Refill Fluvastatin Sodium Capsule, 40 MG, Orally, 90, TAKE 1 CAPSULE BY MOUTH DAILY, once a day, 90 days, Refills=3 * true * Date: Generated for Gonzalo vasquez/Minerva/Soraidaitting on: 08:29 AM EDT
--- OUTSIDE RECORDS SUMMARY | 2025-01-17 11:30 | XMS_ITS ---
Author Organization Landen Corral III, MD Address [address] [place] [address] [place] [address] Care Team Providers Care Church History Professor Name Role Phone Dr. Landen Corral III [...] Date Provider Diagnosis Landen Corral III, MD [address] [place] [address] [address] [place], [place] [phone] 01/17/2025 Landen Corral Overweight E66.3 ; Hyperlipidemia [...] Provider Name:Landen Corral , 07/23/2025 02:30:00 PM, [address] [place] [address] [address], [place], [address], Provider Name:Landen Corral , 03/26/2026 02:30:00 PM, [address] [place] [address] [address], [place], [address], Progress Notes * Juan Antonio LOAIZAOB:1965 (59 yo M)Acc No.[id number]:01/17/2025 Progress Notes Patient: Roberto ZAMAN Provider: Sukhdev Corral MD :1965 A ge:59 Y S ex:Male Date:01/17/2025 Address:[address] [place] [phone] Subjective: * Chief Complaints: * H yperlipidemiaOverweightSleep [...] * Surgical History: c olonoscopy, based a [facility], every 10 years March 2020No history [...] and is working. He was born in [place]. * Medications: T akingZyrTEC Allergy 10 [...] 0 01/17/2025 Generated for Gonzalo vasquez/Minerva/Soraidaitting on: 08:30 AM [...]
--- OUTSIDE RECORDS SUMMARY | 2025-03-21 10:30 | XMS_ITS ---
Author Organization Landen Corral III, MD Address [address] [place] [address] [place] [address] Care Team Providers Care Hook Loader Name Role Phone Dr. Landen Corral III Primary Care Provider [phone] Allergies Allergen (clinical drug ingredient) Drug/Non Drug [...] Date Provider Diagnosis Landen Corral III, MD [address] [place] [address] [place] [address] 03/21/2025 Landen Corral Overweight E66.3 ; Hyperlipidemia [...] 03/21/2025, Evaluate and Treat Throat Pain, of [facility], [facility] Surgeons Next Appt Details Follow Up: 4 Months, Reason: OV Provider Name:Landen Corral , 07/23/2025 02:30:00 PM, [address] [place] [address] [address], [place], [address], Provider Name:Landen Corral , 03/26/2026 02:30:00 PM, [address] [place] [address] [address], [place], [address], Progress Notes * JOSSE Juan AntonioOB:1965 (59 yo M)Acc No.[id number]:03/21/2025 Progress Notes Patient: Roberto ZAMAN Provider: Sukhdev Corral MD :1965 A ge:59 Y S ex:Male Date:03/21/2025 Address:[address] [place] [phone] Subjective: * Chief Complaints: * A nnual Exam * HPI: D epression Screening: He returns to the office for his annual examination. Since his last visit he has been healthy and well. He has noted occasional heartburn for which he takes qjzm-fqo-vegtpkf medication with success. He is using his [...] * Surgical History: c olonoscopy, based a [facility], every 10 years March 2020No history * [...] and is working. He was born in [place], [place]. * Medications: T akingFluvastatin Sodium 40 [...] 4. O thers Referral To:[facility], [facility] Surgeons Otolaryngology Reason:Evaluate and Treat [...] Corral MD Date: 0 03/21/2025 Generated for Third Brigadei ng/Faechog/eTransmitting on: 1 08:30 AM EDT History and [...] Date Referring Provider Referred Provider Not layla 03/21/2025 Landen Corral Surgeons, of [facility], [facility] Evaluate and Treat Throat Pain
--- OUTSIDE RECORDS SUMMARY | 2025-04-23 08:31 | XMS_ITS | Patient Health Record ---
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 Landen [...] Provider Speciality Internal edicine Ref[facility]erred Provider Specialty Otolaryngolo gy General [...] MG TAKE 1 CAPSULE BY MOUTH DAILY for 90 Active ZyrTEC Allergy 10 MG 1 tablet [...] Problem Status W/U Status Risk Notes Problem 3846340 Former smoker (Z87.891) Active confirmed He has a plan for maintenance of abstinence in times of illness and distress. He is highly motivated not to smoke. Problem 06454951 Hyperlipidemia (E78.5) Active confirmed The only statin which he can tolerate his fluvastatin. He is on a maximum dose at this time with a total cholesterol near his target range. We have discussed weight reduction, dietary means to reduce cholesterol and increasing physical activity. Problem 754019455 Overweight (E66.3) Active confirmed His body mass [...] Problem Benign prostatic hypertrophy without outflow obstruction (382427925) BPH (benign prostatic hypertrophy) (N40.0) Active confirmed He has been rising from sleep about once a night to urinate. We have reviewed lifestyle modification she could back to reduce this. Problem 45820812 Statin intolerance (Z78.9) Active confirmed He has had no myalgias with fluvastatin. He is not allergic to statins. He is intolerant to the last lipid soluble statins. Problem 62468872 Obstructive sleep apnea (G47.33) Active confirmed He will continue using the CPAP. He denies any daytime somnolence. Problem Hearing loss (44390521) Bilateral hearing loss, unspecified hearing loss type (H91.93) Active confirmed Problem 44457666 Reactive depression (F32.9) Active confirmed He does [...] Provider Diagnosis Landen Corral III, MD [address] [place] [address] [place] [address] 05/15/2024 Landen Corral Overweight E66.3 ; Hyperlipidemia E78.5 ; BPH (benign prostatic hypertrophy) N40.0 ; Former smoker Z87.891 ; Obstructive sleep apnea G47.33 ; Reactive depression F32.9 and Statin intolerance Z78.9 Landen Corral III, MD [address] [place] [address] [place] [address] 09/13/2024 Landen Corral Overweight E66.3 ; Hyperlipidemia E78.5 ; Former smoker Z87.891 ; Obstructive sleep apnea G47.33 ; Statin intolerance Z78.9 and BPH (benign prostatic hypertrophy) N40.0 Landen Corral III, MD [address] [place] [address] [place] [address] 01/17/2025 Landen Corral Overweight E66.3 ; Hyperlipidemia E78.5 ; Former smoker Z87.891 ; Obstructive sleep apnea G47.33 ; BPH (benign prostatic hypertrophy) N40.0 and Reactive depression F32.9 Landen Corral III, MD [address] [place] [address] [place] [address] 03/21/2025 Landen Ellis Overweight E66.3 ; Hyperlipidemia E78.5 ; BPH (benign prostatic hypertrophy) N40.0 ; Former smoker Z87.891 ; Statin intolerance Z78.9 and Obstructive sleep apnea G47.33 Landen Corral III, MD [address] [place] [address] [place] [address] 08/25/2024 Landen Corral III, MD [address] [place] [address] [place] [address] 01/10/2025 Landen Corral Overweight E66.3 Assessments Encounter [...] TOTAL 05/15/2024 PSA, TOTAL 03/16/2023 PSA, TOTAL 03/21/2025 PSA, TOTAL 10/20/2023 CBC w DIFF 04/17/2020 CBC w DIFF 01/18/2018 CBC w DIFF 09/13/2024 CBC w DIFF 04/15/2022 CBC w DIFF 2018 CBC w DIFF 08/01/2021 CBC w DIFF 05/22/2019 CBC w DIFF 06/08/2017 CBC w DIFF 11/22/2019 CBC w DIFF 03/28/2021 CBC w DIFF 10/12/2017 CBC w DIFF 07/24/2020 CBC w DIFF 03/16/2023 CBC w DIFF 03/21/2025 CBC w DIFF 05/23/2018 CBC w DIFF [...] Panel 05/15/2024 Lipid Panel 03/04/2022 Lipid Panel 03/21/2025 Lipid Panel 01/17/2025 Lipid Panel 10/20/2023 Next Appt Details Provider Name:Landen Earlene Ellis , 07/23/2025 02:30:00 PM, [address] [facility] [address], [place], [address], Provider Name:Landen Earlene Ellis , 03/26/2026 02:30:00 PM, [address] [facility] [address] [place], [place], [address], Insurance Providers Payer Name Payer Address Payer Phone Subscriber Number Group Number Insured Name Patient Relationship to Insured Coverage Start Date Coverage End Date [address] [facility] [place] [phone] [id number] Roberto Loaiza Self - patient is the insured Medical (General) History Medical History History ICD Code hyperlipidemia chronic back pain near sighted Overweight Surgical History Surgery Date(Month/Year) No history [facility] 10 [facility] March 2020 Hospitalization History Reason Date(Month/Year) No history
== END 2025-04-23 08:15 | disposition home or self-care (01) ==
LOC: HO.HMGAL 08:15
PROVIDERS: PCP Internal Medicine Medical Oncology; Visit Provider Registered Nurse Emergency
DX: J30.89 Other allergic rhinitis (principal)
CPT/HCPCS: 95117; 95165

== ENCOUNTER 2025-04-30 08:11 | Outpatient (AMB) | payer OTHER, SELFPAY ==
--- OUTSIDE RECORDS SUMMARY | 2022-08-31 06:30 | XMS_ITS | Continuity of Care Document ---
Author Organization [facility] Address [address] [place] [address] [address] [place] [address] Phone Care Team Providers Care Seating Captain Name Role Phone Maximino BURGESS FACS RVT Awais MAHMOOD Unavailable Unavailable Allergies, Adverse Reactions, Alerts Substance Reaction Status Criticality No Known Allergies Active No Inform ation Medications Medication Instructions Dosage Effective Dates (start - stop) Status Comments citalopram 10 mg tablet - Ac tive fluvastatin 40 mg capsule - Active Zyrtec 10 mg capsule - Activ e Procedures Procedure Date No Charge For Services Sngl/mx Inj Scleros-veins; Plata Advance Directives Directive Yes / No Effective Date File Name No Information Encounters Encounter Description Practice Location Reason(s) For Visit Diagnoses Date Provider Providers Copied on Encounter [facility], [address] [place] [address] [address], [place], [id number], tel:[phone] CVR - [facility] Body mass index (BMI) 27.0-27.9, adultSpider Veins - (Telangiecta bernabe) Aug- 3 Maximino BURGESS FACS RVT TIMOTEO Tim. [address] [facility] [address], [place], [address], [place]. tel:[phone] Referring Provider: Landen Henao, [address] [facility] [address], [place], [address]. tel:[phone] [facility], [address] [facility] [address], [place], [id number], [place] tel:[phone] [facility] - [place] - [place] Spider Veins - (Telangiecta bernabe) 2 Maximino BURGESS FACS RVT TIMOTEO Tim. [address] [facility], [address], [place], [address], [place]. tel:[phone] Referring Provider: Landen Corral MD E, [address] [facility] [address], [place], [address]. tel:[phone] Family History Family Member Type Diagnosis Age At Onset No Information Payers Payer name Insurance type Covered constitution party ID Authoriza tion(s) Self Pay 09 Social History Type Description Quantity Date Captured Comments Alcohol Use Details Caffeine Use Details Unknown Tobacco Use Status No Information Smoking Status Former smoker Non-Smoking Tobacco Use Details : No Details Available : No Details Available Sex Male Vital Signs Date / Time: Height Weight BMI Pulse Rate Blood Pressure Temperature Respiratory Rate Body Surface Area Head Circumference Head Circ. Percentile Wt./Jesús. Percentile BMI percentile Pulse Ox Inhaled Ox 11:51 AM 70.00 in 87.543 kg (193.00 lbs) 27.6 9 kg/m eter (2) 2.08 meter(2) Chief Complaint And Reason For Visit No Information Reason For Referral Reason For Referral No Information History Of Present Illness Encounter Date Complaint History Of Prese nt Illness No Information Functional Status Date Functional Assessmen t No Information Instructions Date Instruction Additional Infor mation Dietary needs education Related to Body mass index [BMI] 27.0-27.9, adult Assessments Type Assessment Date assessment Body mass index [BMI] 27.0-27.9, adult assessment Spider Veins - (Telangiectasia) Patient Care Teams Name Effective Dates (start - stop) Status Members No Information
--- OUTSIDE RECORDS SUMMARY | 2024-03-20 09:30 | XMS_ITS ---
Author Organization Landen Corral III, MD Address [address] [place] [address] [place] [address] Care Team Providers Care Supervisor Sewing Room Name Role Phone Dr. Landen Corral III [...] Date Provider Diagnosis Landen Corral III, MD [address] [place] [address] [address] [place], [place] [address] 03/20/2024 Landen Corral Overweight E66.3 ; Hyperlipidemia [...] Name:Landen Henao Ellis , 07/23/2025 02:30:00 PM, [address] [place] [address] [address], [place], [address], Provider Name:Landen Henao Ellis , 03/26/2026 02:30:00 PM, [address] [place] [address] [address], [place], [address], Progress Notes * Aniya LOAIZACorwinOB:1965 (58 yo M)Acc No.[id number]:03/20/2024 Progress Notes Patient: Roberto ZAMAN Provider: Sukhdev Corral MD :1965 A ge:58 Y S ex:Male Date:03/20/2024 Address:[address] [place] [phone] Subjective: * Chief Complaints: * A nnual [...] and is working. He was born in [place]. * Medications: T akingZyrTEC Allergy 10 [...] 0 03/20/2024 Generated for Gonzalo vasquez/Minerva/eTransmitting on: 06/30/2024 08:24 AM EST History and Physical Notes * [...]
--- OUTSIDE RECORDS SUMMARY | 2024-05-15 10:00 | XMS_ITS ---
Author Organization Landen Corral III, MD Address [address] [place] [address] [place] [address] Care Team Providers Care Preschool Special Education Teacher Name Role Phone Dr. Landen Corral III [...] Referred Provider [facility], [facility], [facility] Referred Provider Specialty Otolaryngolo gy General [...] Date Provider Diagnosis Landen Corral III, MD [address] [place] [address] [place] [address] 05/15/2024 Landen Corral Overweight E66.3 ; Hyperlipidemia [...] Evaluate and Treat Bilateral Hearing Loss, of [facility], [facility] Next Appt Details Follow Up: 4 Months, Three t imes a year, Reason: OV, Regular Checkup Provider Name:Landen Corral , 07/23/2025 02:30:00 PM, [address] [place] [address] [address], [place], [address], Provider Name:Landen Corral , 03/26/2026 02:30:00 PM, [address] [place] [address] [address], [place], [address], Progress Notes * JOSSE AfiaisDOB:1965 (58 yo M)Acc No.[id number]:05/15/2024 Progress Notes Patient: Roberto ZAMAN Provider: Sukhdev Corral MD :1965 A ge:58 Y S ex:Male Date:05/15/2024 Address:[address] [place], [place] [phone] Subjective: * Chief Complaints: * H earing [...] * Surgical History: c olonoscopy, based a [facility], every 10 years March 2020No history [...] and is working. He was born in [place], [place]. * Medications: T akingZyrTEC Allergy 10 MG [...] Date: 07/15/2023 Generated for Printi ng/Faechog/eTransmitting on: 06/30/2024 08:24 AM EST History and Physical Notes * HPI (History of Present Illness) Category Sub-Category Detail Notes COVID-19 Screening Questions Have you had any new onset fever, chills, cough, congestion, sore throat, shortness of breath, muscle aches?: No Have you been exposed to the virus withi n the last 10 days?: No Have you travelled internationally in [facility] last 10 days?: No Have you [...] Not layla 05/15/2024 Landen Corral Surgeons, of [facility], [facility] Evaluate and Treat Bilateral Hearing Loss
--- OUTSIDE RECORDS SUMMARY | 2024-08-25 04:11 | XMS_ITS ---
Author Organization Landen Corral III, MD Address [address] [place] [address] [place] [address] Care Team Providers Care Interactive Digital Media Specialist Name Role Phone Dr. Landen Corral III Primary Care Provider REASON FOR VISIT Rx Request Medications Medication [...] Date Provider Diagnosis Landen Corral III, MD [address] [place] [address] [place] [address] 08/25/2024 Landen Corral Plan Of Treatment Medication Medication Name Sig Start Date Stop Date Notes Azithromycin 250 MG as directed Orally 2 Tablets on the first day, one tablet the rest of the days for 5 days 08/25/2024 08/30/2024 Next Appt Details Provider Name:Landen Corral , 07/23/2025 02:30:00 PM, [address] [place] [address] [place], [address], Provider Name:Landen Corral , 03/26/2026 02:30:00 PM, [address] [place] [address] [place], [address], Progress Notes * Juan Antonio LOAIZAOB:1965 (58 yo M)Acc No.[id number]:08/25/2024 Patient: Roberto ZAMAN :1965 A ge:58 Y S ex:Male Address:[address] [place] [phone] * Refills Start Azithromycin Tablet, 250 MG, Orally, 6, as directed, 2 Tablets on the first day, one tablet the rest of the days, 5 days, Refills=0 * true * Date: Generated for Gonzalo vasquez/Minerva/Soraidaitting on: 06/30/2024 08:24 AM EST
--- OUTSIDE RECORDS SUMMARY | 2024-09-13 10:00 | XMS_ITS ---
Author Organization Landen Corral III, MD Address [address] [place] [address] [place] [address] Care Team Providers Care Clean Up Person Name Role Phone Dr. Landen Corral III [...] Date Provider Diagnosis Landen Corral III, MD [address] [place] [address] [address] [address] 09/13/2024 Landen Corral Overweight E66.3 ; Hyperlipidemia [...] Provider Name:Landen Corral , 07/23/2025 02:30:00 PM, [address] [place] [address] [address], [place], [address], Provider Name:Landen Corral , 03/26/2026 02:30:00 PM, [address] [place] [address] [address], [place], [address], Progress Notes * Juan Antonio LOAIZAOB:1965 (58 yo M)Acc No.[id number]:09/13/2024 Progress Notes Patient: Roberto ZAMAN Provider: Sukhdev Corral MD :1965 A ge:58 Y S ex:Male Date:09/13/2024 Address:[address] [place] [phone] Subjective: * Chief Complaints: * H yperlipidemiaObstructive [...] and is working. He was born in [place]. * Medications: T akingZyrTEC Allergy 10 [...] 0 09/13/2024 Generated for Gonzalo vasquez/Minerva/Soraidaitting on: 06/30/2024 08:24 AM EST History and [...]
--- OUTSIDE RECORDS SUMMARY | 2025-01-10 09:54 | XMS_ITS ---
Author Organization Landen Corral III, MD Address [address] [place] [address] [place] [address] Care Team Providers Care Metal Baler Name Role Phone Dr. Landen Corral III [...] Date Provider Diagnosis Landen Corral III, MD [address] [place] [address] [place] [address] 01/10/2025 Landen Corral Overweight E66.3 Assessments Encounter [...] Provider Name:Landen Corral , 07/23/2025 02:30:00 PM, [address] [place] [address] [place], [address], Provider Name:Landen Corral , 03/26/2026 02:30:00 PM, [address] [place] [address] , [address], [place], [address], Progress Notes * Juan Antonio LOAIZAOB:1965 (59 yo M)Acc No.[id number]:01/10/2025 Patient: Roberto ZAMAN :1965 A ge:59 Y S ex:Male Address:[address] [place] [address] * Refills Refill Fluvastatin Sodium Capsule, 40 MG, Orally, 90, TAKE 1 CAPSULE BY MOUTH DAILY, once a day, 90 days, Refills=3 * true * Date: Generated for Gonzalo vasquez/Minerva/Sonia on: 06/30/2024 08:24 AM EST
--- OUTSIDE RECORDS SUMMARY | 2025-01-17 10:30 | XMS_ITS ---
Author Organization Landen Corral III, MD Address [address] [place] [address] [place] [address] Care Team Providers Care Client Server Developer Name Role Phone Dr. Landen Corral III [...] Date Provider Diagnosis Landen Corral III, MD [address] [place] [address] [address] [place], [place] [phone] 01/17/2025 Landen Corral Overweight E66.3 ; Hyperlipidemia [...] Next Appt Details Follow Up: As Scheduled, [place] son: Annual Exam Provider Name:Landen Corral , 07/23/2025 02:30:00 PM, [address] [place] [address] [address], [place], [address], Provider Name:Landen Corral , 03/26/2026 02:30:00 PM, [address] [place] [address] [address], [place], [address], Progress Notes * Juan Antonio LOAIZAOB:1965 (59 yo M)Acc No.[id number]:01/17/2025 Progress Notes Patient: Roberto ZAMNA Provider: Sukhdev Corral MD :1965 A ge:59 Y S ex:Male Date:01/17/2025 Address:[address] [place] [phone] Subjective: * Chief Complaints: * H yperlipidemiaOverweightSleep [...] * Surgical History: c olonoscopy, based a [facility], every 10 years March 2020No history * [...] and is working. He was born in [place]. * Medications: T akingZyrTEC Allergy 10 [...] 0 01/17/2025 Generated for Gonzalo vasquez/Minerva/Lesviasmitting on: 06/30/2024 08:25 AM EST History and Physical Notes * [...]
--- OUTSIDE RECORDS SUMMARY | 2025-03-21 09:30 | XMS_ITS ---
Author Organization Landen Corral III, MD Address [address] [place] [address] [place] [address] Care Team Providers Care Protective Services Case Worker Name Role Phone Dr. Landen Corral III Primary Care Provider [phone] Allergies Allergen (clinical drug ingredient) Drug/Non Drug [...] Internal M edicine Referred Provider [facility], [facility] Referred Provider Specialty Otolaryngolo gy General Notes [...] Date Provider Diagnosis Landen Corral III, MD [address] [place] [address] [place] [address] 03/21/2025 Landen Corral Overweight E66.3 ; Hyperlipidemia [...] 03/21/2025, Evaluate and Treat Throat Pain, of [facility], [facility] Surgeons Next Appt Details Follow Up: 4 Months, Reason: OV Provider Name:Landen Corral , 07/23/2025 02:30:00 PM, [address] [place] [address] [address], [place], [address], Provider Name:Landen Corral , 03/26/2026 02:30:00 PM, [address] [place] [address] [address], [place], [address], Progress Notes * JOSSE Juan AntonioOB:1965 (59 yo M)Acc No.[id number]:03/21/2025 Progress Notes Patient: Roberto ZAMAN Provider: Sukhdev Corral MD :1965 A ge:59 Y S ex:Male Date:03/21/2025 Address:[address] [place] [phone] Subjective: * Chief Complaints: * A nnual Exam * HPI: D epression Screening: He returns to the office for his annual examination. Since his last visit he has been healthy and well. He has noted occasional heartburn for which he takes cqio-xtk-hfiovai medication with success. He is using his [...] and is working. He was born in [place], [place]. * Medications: T akingFluvastatin Sodium 40 MG [...] 4. O thers Referral To:[facility], [facility] Surgeons Otolaryngology Reason:Evaluate and Treat [...] Corral MD Date: 0 03/21/2025 Generated for [employer] ng/Nohemig/eTransmitting on: 1 06/30/2024 08:25 AM EST History and Physical [...] Provider Not 03/21/2025 Landen Corral Surgeons, of [facility], [facility] Evaluate and Treat Throat Pain
--- OUTSIDE RECORDS SUMMARY | 2025-04-30 08:25 | XMS_ITS | Patient Health Record ---
Author Organization Landen Corral III, MD Address [address] [place] [address] [place] [address] Care Team Providers Care Senior Water Resources Engineer Name Role Phone Dr. Landen Corral [...] Provider Speciality Internal edicine Ref[facility] Referred Provider Specialty Otolaryngolo gy General [...] Internal M edicine Referred Provider E.N[facility], [facility] Referred Provider Specialty Otolaryngolo gy [...] Problem Status W/U Status Risk Notes Problem 7589710 Former smoker (Z87.891) Active confirmed He has a plan for maintenance of abstinence in times of illness and distress. He is highly motivated not to smoke. Problem 43753156 Hyperlipidemia (E78.5) Active confirmed The only statin which he can tolerate his fluvastatin. He is on a maximum dose at this time with a total cholesterol near his target range. We have discussed weight reduction, dietary means to reduce cholesterol and increasing physical activity. Problem 232821943 Overweight (E66.3) Active confirmed His body mass [...] Problem Benign prostatic hypertrophy without outflow obstruction (474042789) BPH (benign prostatic hypertrophy) (N40.0) Active confirmed He has been rising from sleep about once a night to urinate. We have reviewed lifestyle modification she could back to reduce this. Problem 41154487 Statin intolerance (Z78.9) Active confirmed He has had no myalgias with fluvastatin. He is not allergic to statins. He is intolerant to the last lipid soluble statins. Problem 92202628 Obstructive sleep apnea (G47.33) Active confirmed He will continue using the CPAP. He denies any daytime somnolence. Problem Hearing loss (24089087) Bilateral hearing loss, unspecified hearing loss type (H91.93) Active confirmed Problem 72395730 Reactive depression (F32.9) Active confirmed He does [...] Provider Diagnosis Landen Corral III, MD [address] [place] [address] [place] [address] 05/15/2024 Landen Corral Overweight E66.3 ; Hyperlipidemia E78.5 ; BPH (benign prostatic hypertrophy) N40.0 ; Former smoker Z87.891 ; Obstructive sleep apnea G47.33 ; Reactive depression F32.9 and Statin intolerance Z78.9 Landen Corral III, MD [address] [place] [address] [place] [address] 09/13/2024 Landen Corral Overweight E66.3 ; Hyperlipidemia E78.5 ; Former smoker Z87.891 ; Obstructive sleep apnea G47.33 ; Statin intolerance Z78.9 and BPH (benign prostatic hypertrophy) N40.0 Landen Corral III, MD [address] [place] [address] [place] [address] 01/17/2025 Landen Corral Overweight E66.3 ; Hyperlipidemia E78.5 ; Former smoker Z87.891 ; Obstructive sleep apnea G47.33 ; BPH (benign prostatic hypertrophy) N40.0 and Reactive depression F32.9 Landen Corral III, MD [address] [place] [address] [place] [address] 03/21/2025 Landen Ellis Overweight E66.3 ; Hyperlipidemia E78.5 ; BPH (benign prostatic hypertrophy) N40.0 ; Former smoker Z87.891 ; Statin intolerance Z78.9 and Obstructive sleep apnea G47.33 Landen Corral III, MD [address] [place] [address] [place] [address] 08/25/2024 Landen Corral III, MD [address] [place] [address] [place] [address] 01/10/2025 Landen Corral Overweight E66.3 Assessments Encounter [...] Earlene Ellis , 07/23/2025 02:30:00 PM, 10 [facility] [address] [place], [place], [address], Provider Name:Landen Earlene Ellis , 03/26/2026 02:30:00 PM, [address] [facility] [place], [place], [address], Insurance Providers Payer Name Payer Address Payer Phone Subscriber Number Group Number Insured Name Patient Relationship to Insured Coverage Start Date Coverage End Date [address] [facility] [place] [phone] [id number] 23 Roberto Loaiza Self - patient is the insured Medical (General) History Medical History History ICD Code hyperlipidemia chronic back pain near sighted Overweight Surgical History Surgery Date(Month/Year) No history [facility] 10 [facility] March 2020 Hospitalization History Reason Date(Month/Year) No history
== END 2025-04-30 08:30 | disposition home or self-care (01) ==
LOC: HO.HMGAL 08:11
PROVIDERS: PCP Internal Medicine Medical Oncology; Visit Provider Registered Nurse Emergency
DX: J30.89 Other allergic rhinitis (principal)
CPT/HCPCS: 95117; 95165

== ENCOUNTER 2025-05-07 08:15 | Outpatient (AMB) | payer OTHER, SELFPAY ==
--- OUTSIDE RECORDS SUMMARY | 2022-08-31 06:30 | XMS_ITS | Continuity of Care Document ---
Author Organization [facility] Address [address] [place] [address] [address] [place] [address] Phone Care Team Providers Care Gum Machine Operator Name Role Phone Maximino BURGESS FACS RVT [...] Providers Copied on Encounter [facility], [address] [place] [address] [address], [place], [id number], tel:[phone] CVR - [facility] Body mass index (BMI) 27.0-27.9, adultSpider Veins - (Telangiecta bernabe) Aug- 3 Maximino BURGESS FACS RVT TIMOTEO Tim. [address] [facility] [address], [place], [address], [place]. tel:[phone] Referring Provider: Landen Henao, [address] [facility] [address], [place], [address]. tel:[phone] [facility], [address], [place], [id number], [place] tel:[phone] [facility] [place] Spider Veins - (Telangiecta bernabe) 2 Maximino BURGESS FACS RVT TIMOTEO Tim. [address] [facility], [address], [place], [address], [place]. tel:[phone] Referring Provider: Landen Corral MD E, [address] [facility] [address], [place], [address]. tel:[phone] Family History Family Member Type Diagnosis Age [...]
--- OUTSIDE RECORDS SUMMARY | 2024-03-20 09:30 | XMS_ITS ---
Author Organization Landen Corral III, MD Address [address] [place] [address] [place] [address] Care Team Providers Care Hand Stonecutter Name Role Phone Dr. Landen Corral III [...] Date Provider Diagnosis Landen Corral III, MD [address] [place] [address] [address] [place], [place] [address] 03/20/2024 Landen Corral Overweight E66.3 ; Hyperlipidemia [...] Name:Landen Henao Ellis , 07/23/2025 02:30:00 PM, [address] [place] [address] [address], [place], [address], Provider Name:Landen Henao Ellis , 03/26/2026 02:30:00 PM, [address] [place] [address] [address], [place], [address], Progress Notes * Aniya LOAIZACorwinOB:1965 (58 yo M)Acc No.[id number]:03/20/2024 Progress Notes Patient: Roberto ZAMAN Provider: Sukhdev Corral MD :1965 A ge:58 Y S ex:Male Date:03/20/2024 Address:[address] [place] [phone] Subjective: * Chief Complaints: * A nnual [...] and is working. He was born in [place]. * Medications: T akingZyrTEC Allergy 10 [...] 0 03/20/2024 Generated for Gonzalo vasquez/Minerva/eTransmitting on: 07/07/2024 08:38 AM EST History and Physical Notes * [...]
--- OUTSIDE RECORDS SUMMARY | 2024-05-15 10:00 | XMS_ITS ---
Author Organization Landen Corral III, MD Address [address] [place] [address] [place] [address] Care Team Providers Care Outsole Cutter Machine Name Role Phone Dr. Landen Corral III [...] Internal M edicine Referred Provider [facility], [facility], [facility] Referred Provider Specialty Otolaryngolo gy General [...] Date Provider Diagnosis Landen Corral III, MD [address] [place] [address] [place] [address] 05/15/2024 Landen Corral Overweight E66.3 ; Hyperlipidemia [...] Evaluate and Treat Bilateral Hearing Loss, of [facility], [facility] Next Appt Details Follow Up: 4 Months, Three t imes a year, Reason: OV, Regular Checkup Provider Name:Landen Corral , 07/23/2025 02:30:00 PM, [address] [place] [address] [address], [place], [phone], Provider Name:Landen Corral , 03/26/2026 02:30:00 PM, [address] [place] [address] [address], [place], [address], Progress Notes * JOSSE AfiaisDOB:1965 (58 yo M)Acc No.[id number]:05/15/2024 Progress Notes Patient: Roberto ZAMAN Provider: Sukhdev Corral MD :1965 A ge:58 Y S ex:Male Date:05/15/2024 Address:[address] [place], [place] [phone] Subjective: * Chief Complaints: * H earing [...] * Surgical History: c olonoscopy, based a [facility], every 10 years March 2020No history [...] and is working. He was born in [place], [place]. * Medications: T akingZyrTEC Allergy 10 MG [...] Lipid Panel 3. O thers Referral To:of [facility] Otolaryngology Reason:Evaluate and Treat [...] Date: 07/15/2023 Generated for Printi ng/Faechog/eTransmitting on: 07/07/2024 08:38 AM EST History and Physical Notes * HPI (History of Present Illness) Category Sub-Category Detail Notes COVID-19 Screening Questions Have you had any new onset fever, chills, cough, congestion, sore throat, shortness of breath, muscle aches?: No Have you been exposed to the virus withi n the last 10 days?: No Have you travelled internationally in [facility] last 10 days?: No Have you [...] Not layla 05/15/2024 Landen Corral Surgeons, of [facility], [facility] Evaluate and Treat Bilateral Hearing Loss
--- OUTSIDE RECORDS SUMMARY | 2024-08-25 04:11 | XMS_ITS ---
Author Organization Landen Corral III, MD Address [address] [place] [address] [place] [address] Care Team Providers Care Esthetician/Owner Name Role Phone Dr. Landen Corral III Primary Care Provider [phone] REASON FOR VISIT Rx Request Medications Medication [...] Date Provider Diagnosis Landen Corral III, MD [address] [place] [address] [place] [address] 08/25/2024 Landen Corral Plan Of Treatment Medication Medication Name Sig Start Date Stop Date Notes Azithromycin 250 MG as directed Orally 2 Tablets on the first day, one tablet the rest of the days for 5 days 08/25/2024 08/30/2024 Next Appt Details Provider Name:Landen Corral , 07/23/2025 02:30:00 PM, [address] [place] [address] [place], [address], Provider Name:Landen Corral , 03/26/2026 02:30:00 PM, [address] [place] [address] [place], [address], Progress Notes * Juan Antonio LOAIZAOB:1965 (58 yo M)Acc No.[id number]:08/25/2024 Patient: Roberto ZAMAN :1965 A ge:58 Y S ex:Male Address:[address] [place] [phone] * Refills Start Azithromycin Tablet, 250 MG, Orally, 6, as directed, 2 Tablets on the first day, one tablet the rest of the days, 5 days, Refills=0 * true * Date: Generated for Gonzalo vasquez/Minerva/Soraidaitting on: 07/07/2024 08:38 AM EST
--- OUTSIDE RECORDS SUMMARY | 2024-09-13 10:00 | XMS_ITS ---
Author Organization Landen Corral III, MD Address [address] [place] [address] [place] [address] Care Team Providers Care Turner In Name Role Phone Dr. Landen Corral III Primary Care Provider Allergies Allergen (clinical drug ingredient) Drug/Non Drug Allergy documented on EMR Reaction Allergy Type Onset Date Status environmental (uncoded) Unknown Allergy Active insects (uncoded) Unknown Allergy Ac tive Statins Support muscle pain Drug Allergy Active REASON FOR VISIT Hyperlipidemia, Obstructive sleep apnea, Benign prostatic hypertrophy, Statin intolerance Medications Medication SIG (Take, Route, Frequency, Duration) [...] Observation Description Sex Assigned At Male Tobacco Control (Standard) Question Answer Notes Tobacco use: Former smoker How long has it been since you last smoked? Hollie ter than 10 years Additional Findings: Tobacco non-user Ex-cigaret te smoker Vital Signs Temperature 97.9 degrees Fahrenheit 09/14/19 25 Blood pressure systolic 118 mm Hg 09/14/19 25 Blood pressure diastolic 86 mm Hg 025 Heart Rate 76 /min 09/13/2024 Height 70 in 09/13/2024 Weight 197 lbs 09/13/2024 BMI 28.26 kg/m2 09/13/2024 Encounters Encounter Location Date Provider Diagnosis Landen Corral III, MD [address] [place] [address] [address] [address] 09/13/2024 Landen Corral Overweight E66.3 ; Hyperlipidemia E78.5 ; Former smoker Z87.891 ; Obstructive sleep apnea G47.33 ; Statin intolerance Z78.9 and BPH (benign prostatic hypertrophy) N40.0 Assessments Encounter Date Diagnosis (ICD Code) Assessment Notes Treat ment Notes Treatment Clinical Notes 09/13/2024 Overweight (ICD-10 - E66.3) His body mass index is 28. He has lost 2 pounds. We made a plan to continue to lose weight at a rate of one half of a pound per week. 09/13/2024 Hyperlipidemia (ICD-10 - E78.5) 09/13/2024 Former smoker (ICD-1 0 - Z87.891) He has a plan for maintenance of abstinence in times of illness and distress. He is highly motivated not to smoke. 09/13/2024 Obstructive sleep apnea (ICD-10 - G47.33) He will continue using the CPAP. He denies any daytime somnolence. 09/13/2024 Statin intolerance (ICD-10 - Z78.9) He has had no myalgias with fluvastatin. He is not allergic to statins. He is intolerant to the last lipid soluble statins. 09/13/2024 BPH (benign prostati c hypertrophy) (ICD-10 - N40.0) He ariises from sleep on the average twice a night. We discussed modifications in his lifestyle he could make to reduce nocturia. Plan Of Treatment Medication Medication Name Sig Start Date Stop Date Notes Citalopram Hydrobromide 10 MG 1 tablet Orally Once a day Fluvastatin Sodium 40 MG TAKE 1 CAPSULE BY MOUTH DAILY ZyrTEC Allergy 10 MG 1 tablet Orally Once a day Pending Test Test Name Order Date PROFILE, FASTING (COMPREHENSIVE METABOLI C) 09/13/2024 CBC w DIFF 09/13/2024 Lipid Panel 09/13/2024 Next Appt Details Follow Up: 4 Months, Reason: ov review labs Provider Name:Landen Corral , 07/23/2025 02:30:00 PM, [address] [place] [address] [address], [place], [address], Provider Name:Landen Corral , 03/26/2026 02:30:00 PM, [address] [place] [address] [address], [place], [address], Progress Notes * Juan Antonio LOAIZAOB:1965 (58 yo M)Acc No.[id number]:09/13/2024 Progress Notes Patient: Roberto ZAMAN Provider: Sukhdev Corral MD :1965 A ge:58 Y S ex:Male Date:09/13/2024 Address:[address] [place] [phone] Subjective: * Chief Complaints: * H yperlipidemiaObstructive sleep apneaBenign prostatic hypertrophyStatin intolerance * HPI: C OVID-19 Screening: He returns to the office for ongoing management of his medical issues. He reports his nocturia is slightly worse. He now rises from sleep twice a night to urinate. He did not wish to take medication or have a surgical procedure. We have discussed lifestyle modification as a way of reducing nocturia. His hearing loss is stable and mild and unchanged. His sleep apnea has not worsened. His depression is in remission. He is not smoking cigarettes.? Blood work was available and his lipids were reviewed with him in detail. Questions H ave you had any new onset fever, chills, cough, congestion, sore throat, shortness of breath, muscle aches? N o * ROS: G eneral/Constitutional: pain o nly normal aches and pains. C hills d enies.?Fatigue a dmits. F ever d enies. E NT: Decreased hearing m ild. R espiratory: Cough d enies. C ardiovascular: [...] have been noted. G enitourinary: Frequent urination t wice a night. M usculoskeletal: Muscle aches d enies. P ainful joints d enies. S ciatica d enies. W eakness d enies. S kin: Itching d enies. R michelle d enies. S kin lesion(s)?denies. N eurologic: Difficulty speaking d enies. D izziness d enies.?Headache d enies. L ow back pain d enies. P sychiatric: Depressed mood w hich is mild. * Medical History: * Surgical History: c [...] Social History: T obacco Use: T obacco Control (Standard) T obacco use: F ormer smoker H ow long has it been since you last smoked??Greater than 10 years A dditional Findings: Tobacco non-user E x-cigarette smoker H e is single without children and is working. He was born in [place]. * Medications: T akingZyrTEC Allergy 10 [...] Objective: * Vitals: H t: 70, Wt: 197, BMI:28.26, BP: 118/86, HR: 76, Temp: 97.9, Wt-k.36. * Examination: G eneral Examination: GENERAL APPEARANCE: p malaika, well nourished, well developed, in no acute distress, calm and relaxed, overweight. HEAD: a traumatic, normocephalic. EYES: e matthew, [...] Assessment: 1. H yperlipidemia - E78.5 (Primary) 2 . O verweight - E66.3 ?Notes :His body mass index is 28. He has lost 2 pounds. We made a plan to continue to lose weight at a rate of one half of a pound per week. 3 . F ormer smoker - Z87.891 N otes :He has a plan for maintenance of abstinence in times of illness and distress. He is highly motivated not to smoke. 4 . O bstructive sleep apnea - G47.33 N otes :He will continue using the CPAP. He denies any daytime somnolence. 5 . S tatin intolerance - Z78.9 N otes :He has had no myalgias with fluvastatin. He is not allergic to statins. He is intolerant to the last lipid soluble statins. 6 . B PH (benign prostatic hypertrophy) - N40.0 N otes :He ariises from sleep on the average twice a night. We discussed modifications in his lifestyle he could make to reduce nocturia. Plan: * Treatment: 2. O verweight Continue ZyrTEC Allergy Tablet, 10 MG, 1 tablet, Orally, Once a day; C ontinue Citalopram Hydrobromide Tablet, 10 MG, 1 tablet, Orally, Once a day; C ontinue Fluvastatin Sodium Capsule, 40 MG, TAKE 1 CAPSULE BY MOUTH DAILY. L AB: PROFILE, FASTING (COMPREHENSIVE METABOLIC) L AB: CBC w DIFF L AB: Lipid Panel * Procedure Codes: * Preventive Medicine: Counseling: [...] tobacco use and urged to quit. 0 09/13/2024 * Follow Up: 4 Months (Reason: ov review labs) * Images: * Sign off status: Completed true * Provider: Sukhdev Corral MD Date: 0 09/13/2024 Generated for Gonzalo vasquez/Minerva/Soraidaitting on: 07/07/2024 08:38 AM EST History and Physical Notes * HPI (History of Present Illness) Category Sub-Category Detail Notes COVID-19 Screening Questions Have you had any new onset fever, chills, cough, congestion, sore throat, shortness of breath, muscle aches?: No Examination Category Sub-Category Detail Notes General Examination GENERAL APPEARANCE: pleasant , well nourished, well developed, in no acute distress, calm and relaxed, overweight HEAD: atraumatic, normocep halic EYES: eomi, perrla, [...]
--- OUTSIDE RECORDS SUMMARY | 2025-01-10 09:54 | XMS_ITS ---
Author Organization Landen Corral III, MD Address [address] [place] [address] [place] [address] Care Team Providers Care Deputy Sheriff Lieutenant Name Role Phone Dr. Landen Corral III [...] Provider Diagnosis Landen Corral III, MD [address] [place] [address] [place] [address] 01/10/2025 Landen Corral Overweight E66.3 Assessments Encounter [...] Name:Landen Corral , 07/23/2025 02:30:00 PM, [address] [place] [address] [place], [address], Provider Name:Landen Corral , 03/26/2026 02:30:00 PM, [address] [place] [address] , [address], [place], [address], Progress Notes * Juan Antonio LOAIZAOB:1965 (59 yo M)Acc No.[id number]:01/10/2025 Patient: Roberto ZAMAN :1965 A ge:59 Y S ex:Male Address:[address] [place] [address] * Refills Refill Fluvastatin Sodium Capsule, 40 MG, Orally, 90, TAKE 1 CAPSULE BY MOUTH DAILY, once a day, 90 days, Refills=3 * true * Date: Generated for Gonzalo vasquez/Minevra/Sonia on: 07/07/2024 08:38 AM EST
--- OUTSIDE RECORDS SUMMARY | 2025-01-17 10:30 | XMS_ITS ---
Author Organization Landen Corral III, MD Address [address] [place] [address] [place] [address] Care Team Providers Care Glass Belt Sander Name Role Phone Dr. Landen Corral III Primary Care Provider [phone] Allergies Allergen (clinical drug ingredient) Drug/Non Drug Allergy documented on EMR Reaction Allergy Type Onset Date Status environmental (uncoded) Unknown Allergy Active insects (uncoded) Unknown Allergy Ac tive Statins Support muscle pain Drug Allergy Active REASON FOR VISIT Hyperlipidemia, Overweight, Sleep apnea, Depression, Hearing loss, Benign prostatic hypertrophy Medications Medication SIG (Take, Route, Frequency, Duration) Notes Start Date End Date Status Fluvastatin Sodium 40 MG TAKE 1 CAPSULE BY MOUTH DAILY Orally once a day Active ZyrTEC Allergy 10 MG 1 tablet Orally Onc e a day Active Citalopram Hydrobromide 10 MG 1 tablet Orally Once a day Active Social History Tobacco Use: [...] non-user Ex-cigaret te smoker Vital Signs Temperature 98.8 degrees Fahrenheit 01/18/20 25 Blood pressure systolic 152 mm Hg 01/18/20 25 Blood pressure diastolic 90 mm Hg 025 Heart Rate 67 /min 01/17/2025 Height 70 in 01/17/2025 Weight 195 lbs 01/17/2025 BMI 27.98 kg/m2 01/17/2025 Encounters Encounter Location Date Provider Diagnosis Landen Corral III, MD [address] [place] [address] [address] [place], [place] [address] 01/17/2025 Landen Corral Overweight E66.3 ; Hyperlipidemia E78.5 ; Former smoker Z87.891 ; Obstructive sleep apnea G47.33 ; BPH (benign prostatic hypertrophy) N40.0 and Reactive depression F32.9 Assessments Encounter Date Diagnosis (ICD Code) Assessment Notes Treat ment Notes Treatment Clinical Notes 01/17/2025 Overweight (ICD-10 - E66.3) His body mass index is 28. He has lost 2 pounds. We made a plan to continue to lose weight at a rate of one half of a pound per week. 01/17/2025 Hyperlipidemia (ICD-10 - E78.5) His lipids are stable and no change in his fluvastatin dose was made today. 01/17/2025 Former smoker (ICD-1 0 - Z87.891) He has a plan for maintenance of abstinence in times of illness and distress. He is highly motivated not to smoke. 01/17/2025 Obstructive sleep apnea (ICD-10 - G47.33) He will continue using the CPAP. He denies any daytime somnolence. 01/17/2025 BPH (benign prostati c hypertrophy) (ICD-10 - N40.0) He ariises from sleep on the average twice a night. We discussed modifications in his lifestyle he could make to reduce nocturia. 01/17/2025 Reactive depression (ICD-10 - F32.9) He does not feel depressed lately. His depression is in remission and he is doing well. Plan Of Treatment Medication Medication Name Sig Start Date Stop Date Notes Fluvastatin Sodium 40 MG TAKE 1 CAPSULE BY MOUTH DAILY Orally once a day ZyrTEC Allergy 10 MG 1 tablet Orally Once a day Citalopram Hydrobromide 10 MG 1 tablet Orally Once a day Pending Test Test Name Order Date PROFILE, FASTING (COMPREHENSIVE METABOLI C) 01/17/2025 CBC w DIFF 01/17/2025 Lipid Panel 01/17/2025 Next Appt Details Follow Up: As Scheduled, [place] son: Annual Exam Provider Name:Landen Corral , 07/23/2025 02:30:00 PM, [address] [place] [address] [address], [place], [address], Provider Name:Landen Corral , 03/26/2026 02:30:00 PM, [address] [place] [address] [address], [place], [address], Progress Notes * Juan Antonio LOAIZAOB:1965 (59 yo M)Acc No.[id number]:01/17/2025 Progress Notes Patient: Roberto ZAMAN Provider: Sukhdev Corral MD :1965 A ge:59 Y S ex:Male Date:01/17/2025 Address:[address] [place] [phone] Subjective: * Chief Complaints: * H yperlipidemiaOverweightSleep apneaDepressionHearing lossBenign prostatic hypertrophy * HPI: C OVID-19 Screening: He returns for a scheduled visit for medical management. His hearing loss has been stable.? He continues to try to lose weight.He has lost 2 pounds and his BMI is 27.9. He denies any chest pain or shortness of breath. Comprehensive blood work was available in his lipids were reviewed with him. We agreed that they were well controlled. No change in his regimen was made today. Continues to rise from sleep once a night to urinate. His depression remains in remission. Questions H ave you had any new [...] of breath d enies. G astrointestinal: Constipation d enies. D ecreased appetite d enies.?Diarrhea d enies. H [place] d enies. N ausea d enies. R ectal bleeding?denies. V omiting d enies. H ematology: bruising [...] * Surgical History: c olonoscopy, based a [facility], every 10 years March 2020No history [...] addiction or substance abuse or mental illness. Emisudhir Loaiza himself has a history of depression. * Social History: T obacco Use: T obacco Control (Standard) T obacco use: F ormer smoker H ow long has it been since you last smoked??Greater than 10 years A dditional Findings: Tobacco non-user E x-cigarette smoker H e is single without children and is working. He was born in [place]. * Medications: T akingZyrTEC Allergy 10 MG Tablet 1 tablet Orally Once a day Citalopram Hydrobromide 10 MG Tablet 1 tablet Orally Once a day Fluvastatin Sodium 40 MG Capsule TAKE 1 CAPSULE BY MOUTH DAILY Orally once a day Medication List reviewed and reconciled with the patientTaking ZyrTEC Allergy 10 MG Tablet 1 tablet Orally Once a day Taking Citalopram Hydrobromide 10 MG Tablet 1 tablet Orally Once a day Taking Fluvastatin Sodium 40 MG Capsule TAKE 1 CAPSULE BY MOUTH DAILY Orally once a day Medication List reviewed and reconciled with the patient * Allergies: S tatins Support: muscle pain - Side Effectsinsectsenvironmentalno[Allergies Verified] Objective: * Vitals: H t: 70, Wt: 195, BMI:27.98, BP: 152/90, HR: 67, Temp: 98.8, Wt-k.45. * Examination: G eneral Examination: GENERAL APPEARANCE: p malaika, well nourished, well developed, in no acute distress, calm and relaxed: overweight: man. HEAD: a traumatic, normocephalic. EYES: e [...] sounds normal, no ascites, no organomegaly, no mass. RECTAL EXAM: n ot examined. MUSCULOSKELETAL: e xtremities unremarkable, no clubbing, cyanosis or edema. PERIPHERAL PULSES: n ormal. NEUROLOGIC: a lert and oriented, cranial nerves 2-12 grossly intact, deep tendon reflexes 2+ symmetrical, motor strength normal upper and lower extremities, sensory exam intact. PSYCH: a lert, oriented. Assessment: * Assessment: 1. H yperlipidemia - E78.5 (Primary) N otes :His lipids are stable and no change in his fluvastatin dose was made today. 2 . O verweight - E66.3 N [...] He denies any daytime somnolence. 5 . B PH (benign prostatic hypertrophy) - N40.0 N otes :He ariises from sleep on the average twice a night. We discussed modifications in his lifestyle he could make to reduce nocturia. 6 . R eactive depression - F32.9 N otes :He does not feel depressed lately. His depression is in remission and he is doing well. Plan: * Treatment: 2. O verweight Continue Fluvastatin Sodium Capsule, 40 MG, TAKE 1 CAPSULE BY MOUTH DAILY, Orally, once a day; C ontinue ZyrTEC Allergy Tablet, 10 MG, 1 tablet, Orally, Once a day; C ontinue Citalopram Hydrobromide Tablet, 10 MG, 1 tablet, Orally, Once a day. L AB: PROFILE, FASTING (COMPREHENSIVE METABOLIC) L [...] tobacco use and urged to quit. 0 01/17/2025 * Follow Up: A s Scheduled (Reason: Annual Exam) * Images: * Sign off status: Completed true * Provider: Sukhdev Corral MD Date: 0 01/17/2025 Generated for Gonzalo vasquez/Minerva/Lesviasmitting on: 07/07/2024 08:39 AM EST History and Physical Notes * HPI (History of Present Illness) Category Sub-Category Detail Notes COVID-19 Screening Questions Have you had any new onset fever, chills, cough, congestion, sore throat, shortness of breath, muscle aches?: No Examination Category Sub-Category Detail Notes General Examination GENERAL APPEARANCE: pleasant , well nourished, well developed, in no acute distress, calm and relaxed: overweight: man HEAD: atraumatic, normocep halic EYES: eomi, perrla, anicte lang, conjugate EARS: normal NOSE: septum intact NECK/THYROID: no jugular venous di stention, no carotid bruit, thyroid normal HEART: no clicks, gallops, murmurs, or rubs, regular rhythm, S1, S2 normal, no s3, or vascular bruits LUNGS: clear to auscultatio n ABDOMEN: bowel sounds normal, no ascites, no organomegaly, no mass NEUROLOGIC: alert and oriented, cranial nerves 2-12 [...]
--- OUTSIDE RECORDS SUMMARY | 2025-03-21 09:30 | XMS_ITS ---
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 Landen Corral III Primary Care Provider [phone] Allergies Allergen (clinical drug ingredient) Drug/Non Drug [...] Internal M edicine Referred Provider [facility], [facility] Referred Provider Specialty Otolaryngolo gy General [...] Date Provider Diagnosis Landen Corral III, MD [address] [place] [address] [place] [address] 03/21/2025 Landen Corral Overweight E66.3 ; Hyperlipidemia [...] 03/21/2025, Evaluate and Treat Throat Pain, of [facility], [facility] Surgeons Next Appt Details Follow Up: 4 Months, Reason: OV Provider Name:Landen Corral , 07/23/2025 02:30:00 PM, [address] [place] [address] [address], [place], [address], Provider Name:Landen Corral , 03/26/2026 02:30:00 PM, [address] [place] [address] [address], [place], [address], Progress Notes * JOSSE Juan AntonioOB:1965 (59 yo M)Acc No.[id number]:03/21/2025 Progress Notes Patient: Roberto ZAMAN Provider: Sukhdev Corral MD :1965 A ge:59 Y S ex:Male Date:03/21/2025 Address:[address] [place] [phone] Subjective: * Chief Complaints: * A nnual Exam * HPI: D epression Screening: He returns to the office for his annual examination. Since his last visit he has been healthy and well. He has noted occasional heartburn for which he takes oono-slh-dylcutt medication with success. He is using his [...] * Surgical History: c olonoscopy, based a [facility], every 10 years March 2020No history [...] is working. He was born in [place], [place]. * Medications: T akingFluvastatin Sodium 40 MG [...] AB: Lipid Panel 4. O thers Referral To:[facility], [facility] Surgeons Otolaryngology Reason:Evaluate and Treat Throat [...] Corral MD Date: 0 03/21/2025 Generated for Cellumen ng/Nohemig/eTransmitting on: 1 07/07/2024 08:39 AM EST History and Physical [...] Provider Not 03/21/2025 Landen Corral Surgeons, of [facility], [facility] Evaluate and Treat Throat Pain
--- OUTSIDE RECORDS SUMMARY | 2025-05-07 08:39 | XMS_ITS | Patient Health Record ---
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 Landen Corral [...] Provider Speciality Internal edicine Ref[facility] [place] Referred Provider Specialty Otolaryngolo gy General Notes [...] Problem Status W/U Status Risk Notes Problem 0675985 Former smoker (Z87.891) Active confirmed He has a plan for maintenance of abstinence in times of illness and distress. He is highly motivated not to smoke. Problem 47396657 Hyperlipidemia (E78.5) Active confirmed The only statin which he can tolerate his fluvastatin. He is on a maximum dose at this time with a total cholesterol near his target range. We have discussed weight reduction, dietary means to reduce cholesterol and increasing physical activity. Problem 081958059 Overweight (E66.3) Active confirmed His body mass [...] Problem Benign prostatic hypertrophy without outflow obstruction (328997982) BPH (benign prostatic hypertrophy) (N40.0) Active confirmed He has been rising from sleep about once a night to urinate. We have reviewed lifestyle modification she could back to reduce this. Problem 55107432 Statin intolerance (Z78.9) Active confirmed He has had no myalgias with fluvastatin. He is not allergic to statins. He is intolerant to the last lipid soluble statins. Problem 25273709 Obstructive sleep apnea (G47.33) Active confirmed He will continue using the CPAP. He denies any daytime somnolence. Problem Hearing loss (90633992) Bilateral hearing loss, unspecified hearing loss type (H91.93) Active confirmed Problem 70488929 Reactive depression (F32.9) Active confirmed He does [...] Date Provider Diagnosis Landen Corral III, MD [address] [place] [address] [place] [address] 05/15/2024 Landen Corral Overweight E66.3 ; Hyperlipidemia E78.5 ; BPH (benign prostatic hypertrophy) N40.0 ; Former smoker Z87.891 ; Obstructive sleep apnea G47.33 ; Reactive depression F32.9 and Statin intolerance Z78.9 Landen Corral III, MD [address] [place] [address] [place] [address] 09/13/2024 Landen Corral Overweight E66.3 ; Hyperlipidemia E78.5 ; Former smoker Z87.891 ; Obstructive sleep apnea G47.33 ; Statin intolerance Z78.9 and BPH (benign prostatic hypertrophy) N40.0 Landen Corral III, MD [address] [place] [address] [place] [address] 01/17/2025 Landen Corral Overweight E66.3 ; Hyperlipidemia E78.5 ; Former smoker Z87.891 ; Obstructive sleep apnea G47.33 ; BPH (benign prostatic hypertrophy) N40.0 and Reactive depression F32.9 Landen Corral III, MD [address] [place] [address] [place] [address] 03/21/2025 Landen Ellis Overweight E66.3 ; Hyperlipidemia E78.5 ; BPH (benign prostatic hypertrophy) N40.0 ; Former smoker Z87.891 ; Statin intolerance Z78.9 and Obstructive sleep apnea G47.33 Landen Corral III, MD [address] [place] [address] [place] [address] 08/25/2024 Landen Corral III, MD [address] [place] [address] [place] [address] 01/10/2025 Landen Corral Overweight E66.3 Assessments Encounter [...] Earlene Ellis , 07/23/2025 02:30:00 PM, [address] [facility] [place], [place], [address], Provider Name:Landen Earlene Ellis , 03/26/2026 02:30:00 PM, [address] [facility] [address], [place], [address], Insurance Providers Payer Name Payer Address Payer Phone Subscriber Number Group Number Insured Name Patient Relationship to Insured Coverage Start Date Coverage End Date [address] [facility] [place] [phone] [id number] 23 Roberto Loaiza Self - patient is the insured Medical (General) History Medical History History ICD Code hyperlipidemia chronic back pain near sighted Overweight Surgical History Surgery Date(Month/Year) No history [facility], [facility] 10 [facility] March 2020 Hospitalization History Reason Date(Month/Year) No history
== END 2025-05-07 08:21 | disposition home or self-care (01) ==
LOC: HO.HMGAL 08:15
PROVIDERS: PCP Internal Medicine Medical Oncology; Visit Provider Registered Nurse Emergency
DX: J30.89 Other allergic rhinitis (principal)
CPT/HCPCS: 95117; 95165

== ENCOUNTER 2025-05-14 08:25 | Outpatient (AMB) | payer OTHER, SELFPAY | END 2025-05-14 08:25 | disposition home or self-care (01) | LOC: HO.HMGAL 08:25 | PROVIDERS: PCP Internal Medicine Medical Oncology; Visit Provider Registered Nurse Emergency | DX: J30.89 Other allergic rhinitis (principal) | CPT/HCPCS: 95117; 95165 ==

== ENCOUNTER 2025-05-21 08:06 | Outpatient (AMB) | payer OTHER, SELFPAY ==
--- OUTSIDE RECORDS SUMMARY | 2022-08-31 06:30 | XMS_ITS | Continuity of Care Document ---
Author Organization [facility] Address [address] [place] [address] [address] [place] [address] Phone Care Team Providers Care Insurance Licensing Supervisor Name Role Phone Maximino BURGESS FACS RVT [...] Providers Copied on Encounter [facility], [address] [place] [address] [address], [place], [id number], tel:[phone] CVR - [facility] Body mass index (BMI) 27.0-27.9, adultSpider Veins - (Telangiecta bernabe) Aug- 3 Maximino BURGESS FACS RVT TIMOTEO Tim. [address] [facility] [address], [address], [place]. tel:[phone] Referring Provider: Landen Henao, [address] [facility] [address], [place], [address]. tel:[phone] [facility], [address], [place], [id number], [place] tel:[phone] [facility] [place] - [place] Spider Veins - (Telangiecta bernabe) 2 Maximino BURGESS FACS RVT TIMOTEO Tim. [address] [facility], [address], [place], [address], [place]. tel:[phone] Referring Provider: Landen Corral MD E, [address] [facility] [address], [place], [address]. tel:[phone] Family History Family Member Type Diagnosis Age At Onset No Information Payers Payer name Insurance type Covered republican ID Authoriza tion(s) Self Pay 09 Social [...]
--- OUTSIDE RECORDS SUMMARY | 2024-03-20 09:30 | XMS_ITS ---
Author Organization Landen Corral III, MD Address [address] [place] [address] [place] [address] Care Team Providers Care Cook Chill Technician Name Role Phone Dr. Landen Corral III Primary Care Provider Allergies Allergen (clinical drug ingredient) Drug/Non Drug Allergy documented on EMR Reaction Allergy Type Onset Date Status environmental (uncoded) Unknown Allergy Active insects (uncoded) Unknown Allergy Ac tive Statins Support muscle pain Drug Allergy Active Results Component Value Reference Range Notes URINE DIP STICK Reviewed date:03/20/2024 02:37:11 PM Interpretation: Performing Lab: Notes/Report: SG 1.015 1.005 - 1.025 pH 6.0 5.0 - 9.0 BOLIVAR 70 Negative - NIT Negative Negative - PRO 15 Negative - Trace GLU Negative Negative - KET Negative Negative - UBG 0.2 0.1 - 1.8 SHLOMO Negative 0.2 - 1.3 BLD 50 Negative - REASON FOR VISIT Annual Exam Medications Medication SIG (Take, Route, Frequency, Duration) Notes Start Date End Date Status Citalopram Hydrobromide 10 MG 1 tablet Orally Once a day Active Fluvastatin Sodium 40 MG TAKE 1 CAPSULE BY MOUTH DAILY Active ZyrTEC Allergy 10 MG 1 tablet Orally Onc e a day Active Social History Tobacco Use: Social History Observation Description Date Details (start date - stop date) Former Smoker NA - NA Sex Assigned At : Social History Observation Description Sex Assigned At Male Tobacco Use/Smoking Question Answer Notes Patient is a former smoker How long has it been since you last smoked? > 10 years Additional Findings: Tobacco Non-User Ex-cigaret te smoker Alcohol Screen Question Answer Notes Did you have a drink containing alcohol in the p ast year? No Points 0 Interpretation Negative Vital Signs Temperature 98.1 degrees Fahrenheit 03/20/20 24 Blood pressure systolic 113 mm Hg 03/20/20 24 Blood pressure diastolic 84 mm Hg 024 Heart Rate 69 /min 03/20/2024 Height 70 in 03/20/2024 Weight 195 lbs 03/20/2024 BMI 27.98 kg/m2 03/20/2024 Encounters Encounter Location Date Provider Diagnosis Landen Corral III, MD [address] [place] [address] [address] [place], [place] [address] 03/20/2024 Landen Corral Overweight E66.3 ; Hyperlipidemia E78.5 ; Former smoker Z87.891 ; Statin intolerance Z78.9 ; Obstructive sleep apnea G47.33 and BPH (benign prostatic hypertrophy) N40.0 Assessments Encounter Date Diagnosis (ICD Code) Assessment Notes Treat ment Notes Treatment Clinical Notes 03/20/2024 Overweight (ICD-10 - E66.3) He remains slightly overweight. We reviewed his weight loss strategy. He will continue to lose weight until his body mass index is normal. 03/20/2024 Hyperlipidemia (ICD-10 - E78.5) His lipids were reviewed. His total cholesterol is 235 which is acceptable. He is able to take the fluvastatin without myalgias. His triglycerides are quite elevated at 268 and we reviewed the aanimal fat in his diet. 03/20/2024 Former smoker (ICD-1 0 - Z87.891) He has a plan for maintenance of abstinence in times of illness and distress. He is highly motivated not to smoke. 03/20/2024 Statin intolerance (ICD-10 - Z78.9) He has had no myalgias with fluvastatin. He is not allergic to statins. He is intolerant to the last lipid soluble statins. 03/20/2024 Obstructive sleep apnea (ICD-10 - G47.33) He will continue using the CPAP. He denies any daytime somnolence. 03/20/2024 BPH (benign prostati c hypertrophy) (ICD-10 - N40.0) He rises from sleep once a night. We reviewed a program of lifestyle modification to reduce nocturia. Plan Of Treatment Medication Medication Name Sig Start Date Stop Date Notes Citalopram Hydrobromide 10 MG 1 tablet Orally Once a day Fluvastatin Sodium 40 MG TAKE 1 CAPSULE BY MOUTH DAILY ZyrTEC Allergy 10 MG 1 tablet Orally Once a day Next Appt Details Follow Up: 2 Months, Reason: OV Provider Name:Landen Henao Ellis , 07/23/2025 02:30:00 PM, [address] [place] [address] [address], [place], [address], Provider Name:Landen Henao Ellis , 03/26/2026 02:30:00 PM, [address] [place] [address] [address], [place], [address], Progress Notes * Aniya LOAIZACorwinOB:1965 (58 yo M)Acc No.[id number]:03/20/2024 Progress Notes Patient: Roberto ZAMAN Provider: Sukhdev Corral MD :1965 A ge:58 Y S ex:Male Date:03/20/2024 Address:[address] [place] [id number] Subjective: * Chief Complaints: * A nnual Exam * HPI: D epression Screening: He returns to the office at the age of 58 for his annual physical examination. He is up-to-date with blood work and colonoscopies. He denies any new problems. He has been compliant with all of his medications. His blood work was reviewed with him. He has had no new allergies diagnoses invasive procedures or emergency room visits. Blood work done recently shows white count 6.9 hematocrit 46.7,, platelets 282, glucose 89 BUN 14, creatinine 1.16, total cholesterol 239, triglycerides 175, HDL 38, LDL 169 PSA 2.2. PHQ-9 L ittle interest or pleasure in doing things?Several days F eeling down, depressed, or hopeless S everal days T rouble falling or staying asleep, or sleeping too much N ot at all F eeling tired or having little energy S everal days P oor appetite or overeating N ot at all F eeling bad about yourself or that you are a failure, or have let yourself or your family down N ot at all T rouble concentrating on things, such as reading the newspaper or watching television S everal days M oving or speaking so slowly that other people could have noticed; or the opposite, being so fidgety or restless that you have been moving around a lot more than usual N ot at all T houghts that you would be better off or of hurting yourself in some way N ot at all T otal Score 4 I nterpretation M inimal Depression C OVID-19 Screening: Questions H ave you experienced fever, chills, cough, sore throat, shortness of breath, difficulty breathing, muscle aches, loss of taste or smell? N o H ave you been exposed to the virus within the last 10 days? N o H ave you travelled internationally in the last 10 days? N o H ave you been exposed to COVID-19 in the past? N o S SILVANA Questions: SDOH Questions I n the past year have you been worried about losing your housing? N o I n the past year have you or any family members you live with been unable to get any of the following when it was really needed? Check all that apply: N one * ROS: G eneral/Constitutional: pain o nly normal aches and pains. C hills d enies.?Fatigue a dmits. F ever d enies. E NT: Decreased hearing d enies. R espiratory: Cough d enies. C ardiovascular: Chest pain with exertion d enies. D yspnea on exertion?denies. S hortness of breath d enies. G astrointestinal: Constipation o ccasional. D ecreased appetite d enies. D iarrhea d enies. H eartburn d enies. N ausea d enies. R ectal bleeding d enies. V omiting d enies. H ematology: bruising d enies. p etechiae d enies. S wollen glands n one have been noted. G enitourinary: Frequent urination o nce a night. M usculoskeletal: Muscle aches d enies. P ainful joints d enies. S ciatica d enies. W eakness d enies. S kin: Itching d enies. R michelle d enies. S kin lesion(s)?denies. N eurologic: Difficulty speaking d enies. D izziness d enies.?Headache d enies. L ow back pain d enies. P sychiatric: Depressed mood d enies. * Medical History: * Surgical History: c [facility] March 2020 * Hospitalization/Major Diagno stic Procedure: D enies Past Hospitalization * Family History: F ather: 79 yrs, alzheimer. M other: alive 73 yrs, hyperlipidemia, diagnosed with Hyperlipidemia. 4 brother(s) . . He has no children. A brother has hypertension. He is not aware of any family history of inherited cancer. Family syndromes. He is not aware of any family history of addiction or substance abuse or mental illness. 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 * Social History: T obacco Use: T obacco Use/Smoking P atient is a f ormer smoker H ow long has it been since you last smoked??> 10 years A dditional Findings: Tobacco Non-User E x-cigarette smoker D rugs/Alcohol: D rugs H ave you used drugs other than those for medical reasons in the past 12 months? N o Alcohol Screen D id you have a drink containing alcohol in the past year? N o P oints 0 I nterpretation N egative H e is single without children and is working. He was born in [place], [place]. * Medications: T akingZyrTEC Allergy 10 MG Tablet 1 tablet Orally Once a day Fluvastatin Sodium 40 MG Capsule TAKE 1 CAPSULE BY MOUTH DAILY Citalopram Hydrobromide 10 MG Tablet 1 tablet Orally Once a day Medication List reviewed and reconciled with the patientTaking ZyrTEC Allergy 10 MG Tablet 1 tablet Orally Once a day Taking Fluvastatin Sodium 40 MG Capsule TAKE 1 CAPSULE BY MOUTH DAILY Taking Citalopram Hydrobromide 10 MG Tablet 1 tablet Orally Once a day Medication List reviewed and reconciled with the patient * Allergies: S tatins Support: muscle pain - Side Effectsinsectsenvironmentalno[Allergies Verified] Objective: * Vitals: H t: 70, Wt: 195, BMI:27.98, BP: 113/84, HR: 69, Temp: 98.1, Wt-k.45. * Examination: G eneral Examination: GENERAL APPEARANCE: p leasant, well nourished, well developed, in no acute distress, calm and relaxed, overweight, man. HEAD: a traumatic, normocephalic. EYES: e matthew, perrla, anicteric, conjugate. EARS: n ormal. NOSE: s eptum intact. ORAL CAVITY: n ormal, unremarkable. NECK/THYROID: n o jugular venous distention, no carotid bruit, thyroid normal. LYMPH NODES: n o enlarged lymph nodes,spleen normal. SKIN: n o suspicious lesions, anicteric. HEART: n o clicks, gallops, murmurs, or rubs, regular rhythm, S1, S2 normal, no s3, or vascular bruits. LUNGS: c lear to auscultation . BREASTS: no masses palpable bilaterally. ABDOMEN: b owel sounds normal, no ascites, no organomegaly, no mass, overweight. RECTAL EXAM: n ot examined. MUSCULOSKELETAL: e xtremities unremarkable, no clubbing, cyanosis or edema. PERIPHERAL PULSES: n ormal. NEUROLOGIC: a lert and oriented, cranial nerves 2-12 grossly intact, deep tendon reflexes 2+ symmetrical, motor strength normal upper and lower extremities, sensory exam intact. PSYCH: a lert, oriented. Assessment: * Assessment: 1. H yperlipidemia - E78.5 (Primary) N otes :His lipids were reviewed. His total cholesterol is 235 which is acceptable. He is able to take the fluvastatin without myalgias. His triglycerides are quite elevated at 268 and we reviewed the aanimal fat in his diet. 2 . O verweight - E66.3 N otes :He remains slightly overweight. We reviewed his weight loss strategy. He will continue to lose weight until his body mass index is normal. 3 . F ormer smoker - Z87.891 N otes :He has a plan for maintenance of abstinence in times of illness and distress. He is highly motivated not to smoke. 4 . S tatin intolerance - Z78.9 N otes :He has had no myalgias with fluvastatin. He is not allergic to statins. He is intolerant to the last lipid soluble statins. 5 . O bstructive sleep apnea - G47.33 N otes :He will continue using the CPAP. He denies any daytime somnolence. 6 . B PH (benign prostatic hypertrophy) - N40.0 N otes :He rises from sleep once a night. We reviewed a program of lifestyle modification to reduce nocturia. Plan: * Treatment: * Labs: * L ab: URINE DIP STICK (Collection Date & Time - 03/20/2024) Value Reference Range S G 1.015 1.005 - 1.025 * p H 6.0 5.0 - 9.0 * L EU 70 Negative - * N IT Negative Negative - * P RO 15 Negative - Trace * G ANIYA Negative Negative - * K ET Negative Negative - * U BG 0.2 0.1 - 1.8 * B IL Negative 0.2 - 1.3 * B LD 50 Negative - * Procedure Codes: 8 1002 URINE-NO MICRO * Preventive Medicine: Counseling: C are goal follow-up plan: Counseling for abnormal BMI given Y es Above Normal BMI Follow-up D ietary management education, guidance, and counseling, Dietary needs education, Exercise promotion: strength training, Exercise promotion: stretching, Feeding regime, Giving encouragement to exercise, Lifestyle education regarding diet, Nutrition / feeding management, Nutrition therapy, Prescribed activity/exercise education, Prescribed diet education, Prescribed dietary intake, Special diet education, Weight monitoring , Intervention, Order not done: Medical or Other reason not done S moking/Tobacco Use Patient counseled on the dangers of tobacco use and urged to quit. 0 03/20/2024 * Follow Up: 2 Months (Reason: OV) * Images: * Sign off status: Completed true * Provider: Sukhdev Corral MD Date: 0 03/20/2024 Generated for Gonzalo vasquez/Minerva/eTransmitting on: 07/21/2024 08:13 AM EST History and Physical Notes * HPI (History of Present Illness) Category Sub-Category Detail Notes Depression Screening PHQ-9 Little inte rest or pleasure in doing things: Several days Feeling down, depressed, or hopeless: Se veral days Trouble falling or staying asleep, or sl eeping too much: Not at all Feeling tired or having little energy: S everal days Poor appetite or overeating: Not at all Feeling bad about yourself o r that you are a failure, or have let yourself or your family down: Not at all Trouble concentrating on thi ngs, such as reading the newspaper or watching television: Several days Moving or speaking so slowly that other people could have noticed; or the opposite, being so fidgety or restless that you have been moving around a lot more than usual: Not at all Thoughts that you would be b eze off or of hurting yourself in some way: Not at all Total Score: 4 Interpretation: Minimal Depression COVID-19 Screening Questions Have you had any new onset fever, chills, cough, congestion, sore throat, shortness of breath, muscle aches?: No Have you been exposed to the virus with n the last 10 days?: No Have you travelled internationally in e last 10 days?: No Have you been exposed to COVID-19 in the past?: No SDOH Questions SDOH Questions In the past year have you been worried about losing your housing?: No In the past year have you or any family members you live with been unable to get any of the following when it was really needed? Check all that apply:: None Examination Category Sub-Category Detail Notes General Examination GENERAL APPEARANCE: pleasant , well nourished, well developed, in no acute distress, calm and relaxed, overweight, man HEAD: atraumatic, normocep halic EYES: eomi, perrla, anicte lang, conjugate EARS: normal NOSE: septum intact NECK/THYROID: no jugular venous di stention, no carotid bruit, thyroid normal HEART: no clicks, gallops, murmurs, or rubs, regular rhythm, S1, S2 normal, no s3, or vascular bruits LUNGS: clear to auscultatio n ABDOMEN: bowel sounds normal, no ascites, no organomegaly, no mass, overweight NEUROLOGIC: alert and oriented, cranial nerves 2-12 grossly intact, deep tendon reflexes 2+ symmetrical, motor strength normal upper and lower extremities, sensory exam intact SKIN: no suspicious lesion s, anicteric PERIPHERAL PULSES: normal BREASTS: no masses palpable b ilaterally MUSCULOSKELETAL: extremities unremark able, no clubbing, cyanosis or edema LYMPH NODES: no enlarged lymph no landry,spleen normal RECTAL EXAM: not examined PSYCH: alert, oriented ORAL CAVITY: normal, unremarkable
--- OUTSIDE RECORDS SUMMARY | 2024-05-15 10:00 | XMS_ITS ---
Author Organization Landen Corral III, MD Address [address] [place] [address] [place] [address] Care Team Providers Care Fitness Worker Name Role Phone Dr. Landen Corral III [...] Internal M edicine Referred Provider [facility], [facility], [facility] Referred Provider Specialty Otolaryngolo gy General Notes [...] Date Provider Diagnosis Landen Corral III, MD [address] [place] [address] [place] [address] 05/15/2024 Landen Corral Overweight E66.3 ; Hyperlipidemia [...] Evaluate and Treat Bilateral Hearing Loss, of [facility], [facility] Next Appt Details Follow Up: 4 Months, Three t imes a year, Reason: OV, Regular Checkup Provider Name:Landen Corral , 07/23/2025 02:30:00 PM, [address] [place] [address] [address], [place], [phone], Provider Name:Landen Corral , 03/26/2026 02:30:00 PM, [address] [place] [address] [address], [place], [address], Progress Notes * JOSSE AfiaisDOB:1965 (58 yo M)Acc No.[id number]:05/15/2024 Progress Notes Patient: Roberto ZAMAN Provider: Sukhdev Corral MD :1965 A ge:58 Y S ex:Male Date:05/15/2024 Address:[address] [place], [place] [phone] Subjective: * Chief Complaints: * H earing [...] * Surgical History: c olonoscopy, based a [facility], every 10 years March 2020No history * [...] and is working. He was born in [place], [place]. * Medications: T akingZyrTEC Allergy 10 MG [...] Lipid Panel 3. O thers Referral To:of [facility] Otolaryngology Reason:Evaluate and Treat Bilateral [...] Date: 07/15/2023 Generated for Printi ng/Faechog/eTransmitting on: 07/21/2024 08:13 AM EST History and Physical Notes * HPI (History of Present Illness) Category Sub-Category Detail Notes COVID-19 Screening Questions Have you had any new onset fever, chills, cough, congestion, sore throat, shortness of breath, muscle aches?: No Have you been exposed to the virus withi n the last 10 days?: No Have you travelled internationally in [facility] last 10 days?: No Have [...] Not layla 05/15/2024 Landen Corral Surgeons, of [facility], [facility] Evaluate and Treat Bilateral Hearing Loss
--- OUTSIDE RECORDS SUMMARY | 2024-08-25 04:11 | XMS_ITS ---
Author Organization Landen Corral III, MD Address [address] [place] [address] [place] [address] Care Team Providers Care Molded Frames Assembler Name Role Phone Dr. Landen Corral III [...] Provider Diagnosis Landen Corral III, MD [address] [place] [address] [place] [address] 08/25/2024 Landen Corral Plan Of Treatment Medication Medication Name Sig Start Date Stop Date Notes Azithromycin 250 MG as directed Orally 2 Tablets on the first day, one tablet the rest of the days for 5 days 08/25/2024 08/30/2024 Next Appt Details Provider Name:Landen Corral , 07/23/2025 02:30:00 PM, [address] [place] [address] [place], [address], Provider Name:Landen Corral , 03/26/2026 02:30:00 PM, [address] [place] [address] [place], [address], Progress Notes * Juan Antonio LOAIZAOB:1965 (58 yo M)Acc No.[id number]:08/25/2024 Patient: Roberto ZAMAN :1965 A ge:58 Y S ex:Male Address:[address] [place] [phone] * Refills Start Azithromycin Tablet, 250 MG, Orally, 6, as directed, 2 Tablets on the first day, one tablet the rest of the days, 5 days, Refills=0 * true * Date: Generated for Gonzalo vasquez/Minerva/Soraidaitting on: 07/21/2024 08:12 AM EST
--- OUTSIDE RECORDS SUMMARY | 2024-09-13 10:00 | XMS_ITS ---
Author Organization Landen Corral III, MD Address [address] [place] [address] [place] [address] Care Team Providers Care Pharmacy Operations Specialist Name Role Phone Dr. Landen Corral III Primary Care Provider [phone] Allergies Allergen (clinical drug ingredient) Drug/Non Drug [...] Date Provider Diagnosis Landen Corral III, MD [address] [place] [address] [address] [address] 09/13/2024 Landen Corral Overweight E66.3 ; Hyperlipidemia [...] Provider Name:Landen Corral , 07/23/2025 02:30:00 PM, [address] [place] [address] [address], [address], [address], Provider Name:Landen Corral , 03/26/2026 02:30:00 PM, [address] [place] [address] [address], [place], [address], Progress Notes * Juan Antonio LOAIZAOB:1965 (58 yo M)Acc No.[id number]:09/13/2024 Progress Notes Patient: Roberto ZAMAN Provider: Sukhdev Corral MD :1965 A ge:58 Y S ex:Male Date:09/13/2024 Address:[address] [place] [phone] Subjective: * Chief Complaints: * H yperlipidemiaObstructive [...] and is working. He was born in [place]. * Medications: T akingZyrTEC Allergy 10 [...] 0 09/13/2024 Generated for Gonzalo vasquez/Minerva/Soraidaitting on: 07/21/2024 08:13 AM EST History and [...]
--- OUTSIDE RECORDS SUMMARY | 2025-01-10 09:54 | XMS_ITS ---
Author Organization Landen Corral III, MD Address [address] [place] [address] [place] [address] Care Team Providers Care Lobster Fisherman Name Role Phone Dr. Landen Corral III [...] Date Provider Diagnosis Landen Corral III, MD [address] [place] [address] [place] [address] 01/10/2025 Landen Corral Overweight E66.3 Assessments Encounter [...] Provider Name:Landen Corral , 07/23/2025 02:30:00 PM, [address] [place] [address] [place], [address], Provider Name:Landen Corral , 03/26/2026 02:30:00 PM, [address] [place] [address] , [address], [place], [address], Progress Notes * Juan Antonio LOAIZAOB:1965 (59 yo M)Acc No.[id number]:01/10/2025 Patient: Roberto ZAMAN :1965 A ge:59 Y S ex:Male Address:[address] [place] [address] * Refills Refill Fluvastatin Sodium Capsule, 40 MG, Orally, 90, TAKE 1 CAPSULE BY MOUTH DAILY, once a day, 90 days, Refills=3 * true * Date: Generated for Gonzalo vasquez/Minerva/Sonia on: 07/21/2024 08:13 AM EST
--- OUTSIDE RECORDS SUMMARY | 2025-01-17 10:30 | XMS_ITS ---
Author Organization Landen Corral III, MD Address [address] [place] [address] [place] [address] Care Team Providers Care Oven Attendant Name Role Phone Dr. Landen Corral III [...] Date Provider Diagnosis Landen Corral III, MD [address] [place] [address] [address] [place], [place] [phone] 01/17/2025 Landen Corral Overweight E66.3 ; Hyperlipidemia [...] Next Appt Details Follow Up: As Scheduled, [place] son: Annual Exam Provider Name:Landen Corral , 07/23/2025 02:30:00 PM, [address] [place] [address] [address], [place], [address], Provider Name:Landen Corral , 03/26/2026 02:30:00 PM, [address] [place] [address] [address], [place], [address], Progress Notes * Juan Antonio LOAIZAOB:1965 (59 yo M)Acc No.[id number]:01/17/2025 Progress Notes Patient: oRberto ZAMAN Provider: Sukhdev Corral MD :1965 A ge:59 Y S ex:Male Date:01/17/2025 Address:[address] [place] [phone] Subjective: * Chief Complaints: * H yperlipidemiaOverweightSleep [...] * Surgical History: c olonoscopy, based a [facility], every 10 years March 2020No [...] and is working. He was born in [place]. * Medications: T akingZyrTEC Allergy 10 [...] 0 01/17/2025 Generated for Gonzalo vasquez/Minerva/Lesviasmitting on: 07/21/2024 08:13 AM EST History and [...]
--- OUTSIDE RECORDS SUMMARY | 2025-03-21 09:30 | XMS_ITS ---
Author Organization Landen Corral III, MD Address [address] [place] [address] [place] [address] Care Team Providers Care Web Ui Developer Name Role Phone Dr. Landen Corral [...] Internal M edicine Referred Provider [facility], [facility] Referred Provider Specialty Otolaryngolo gy General Notes [...] Date Provider Diagnosis Landen Corral III, MD [address] [place] [address] [place] [address] 03/21/2025 Landen Corral Overweight E66.3 ; Hyperlipidemia [...] 03/21/2025, Evaluate and Treat Throat Pain, of [facility], [facility] Surgeons Next Appt Details Follow Up: 4 Months, Reason: OV Provider Name:Landen Corral , 07/23/2025 02:30:00 PM, [address] [place] [address] [address], [place], [address], Provider Name:Landen Corral , 03/26/2026 02:30:00 PM, [address] [place] [address] [address], [place], [address], Progress Notes * JOSSE Juan AntonioOB:1965 (59 yo M)Acc No.[id number]:03/21/2025 Progress Notes Patient: Roberto ZAMAN Provider: Sukhdev Corral MD :1965 A ge:59 Y S ex:Male Date:03/21/2025 Address:[address] [place] [phone] Subjective: * Chief Complaints: * A nnual Exam * HPI: D epression Screening: He returns to the office for his annual examination. Since his last visit he has been healthy and well. He has noted occasional heartburn for which he takes kouo-aqs-ditvxhd medication with success. He is using his [...] Surgical History: c olonoscopy, based a [facility], every 10 years March 2020No [...] and is working. He was born in [place], [place]. * Medications: T akingFluvastatin Sodium 40 MG [...] AB: Lipid Panel 4. O thers Referral To:[facility], [facility] [...] Corral MD Date: 0 03/21/2025 Generated for TapBookAuthori ng/Nohemig/eTransmitting on: 07/21/2024 08:13 AM EST History and [...] Provider Not 03/21/2025 Landen Corral Surgeons, of [facility], [facility] Evaluate and Treat Throat Pain
--- OUTSIDE RECORDS SUMMARY | 2025-05-21 08:14 | XMS_ITS | Patient Health Record ---
Author Organization Landen Corral III, MD Address [address] [place] [address] [place] [address] Care Team Providers Care Cleat Layer Name Role Phone Dr. Landen Corral III [...] Provider Speciality Internal M edicine Referred Provider ETali Surgeons, [facility], [facility] Referred Provider Specialty Otolaryngolo gy General [...] Problem Status W/U Status Risk Notes Problem 1093114 Former smoker (Z87.891) Active confirmed He has a plan for maintenance of abstinence in times of illness and distress. He is highly motivated not to smoke. Problem 84350217 Hyperlipidemia (E78.5) Active confirmed The only statin which he can tolerate his fluvastatin. He is on a maximum dose at this time with a total cholesterol near his target range. We have discussed weight reduction, dietary means to reduce cholesterol and increasing physical activity. Problem 126486404 Overweight (E66.3) Active confirmed His body mass [...] Problem Benign prostatic hypertrophy without outflow obstruction (634794720) BPH (benign prostatic hypertrophy) (N40.0) Active confirmed He has been rising from sleep about once a night to urinate. We have reviewed lifestyle modification she could back to reduce this. Problem 66531112 Statin intolerance (Z78.9) Active confirmed He has had no myalgias with fluvastatin. He is not allergic to statins. He is intolerant to the last lipid soluble statins. Problem 51503898 Obstructive sleep apnea (G47.33) Active confirmed He will continue using the CPAP. He denies any daytime somnolence. Problem Hearing loss (59240993) Bilateral hearing loss, unspecified hearing loss type (H91.93) Active confirmed Problem 46716428 Reactive depression (F32.9) Active confirmed He does [...] Provider Diagnosis Landen Corral III, MD [address] [place] [address] [place] [address] 09/13/2024 Landen Corral Overweight E66.3 ; Hyperlipidemia E78.5 ; Former smoker Z87.891 ; Obstructive sleep apnea G47.33 ; Statin intolerance Z78.9 and BPH (benign prostatic hypertrophy) N40.0 Landen Corral III, MD [address] [place] [address] [place] [address] 01/17/2025 Landen Corral Overweight E66.3 ; Hyperlipidemia E78.5 ; Former smoker Z87.891 ; Obstructive sleep apnea G47.33 ; BPH (benign prostatic hypertrophy) N40.0 and Reactive depression F32.9 Landen Corral III, MD [address] [place] [address] [place] [address] 03/21/2025 Landen Corral Overweight E66.3 ; Hyperlipidemia E78.5 ; BPH (benign prostatic hypertrophy) N40.0 ; Former smoker Z87.891 ; Statin intolerance Z78.9 and Obstructive sleep apnea G47.33 Landen Corral III, MD [address] [place] [address] [address] [place], [place] [address] 08/25/2024 Landen Corral III, MD [address] [place] [address] [address] [place], [place] [address] 01/10/2025 Landen Ellis Overweight E66.3 Assessments Encounter Date Diagnosis (ICD Code) Assessment Notes Treat ment Notes Treatment Clinical Notes 09/13/2024 Hyperlipidemia (ICD-10 - E78.5) 09/13/2024 Overweight [...] half of a pound per week. 09/13/2024 Former smoker (ICD-1 0 - Z87.891) [...] modification she could back to reduce this. 09/13/2024 Obstructive sleep apnea (ICD-10 - G47.33) [...] is highly motivated not to smoke. 09/13/2024 Statin intolerance (ICD-10 - Z78.9) He [...] denies any daytime somnolence. Plan Of Treatment Pending Test Test Name [...] Name:Landen Corral , 07/23/2025 02:30:00 PM, [address] [place] [address] [address], [place], [address], Provider Name:Landen Corral , 03/26/2026 02:30:00 PM, [address] [facility] [place], [place], [address], Insurance Providers Payer Name Payer Address Payer Phone Subscriber Number Group Number Insured Name Patient Relationship to Insured Coverage Start Date Coverage End Date [facility] [address] [place] [phone] [id number] Roberto Loaiza Self - patient is the insured Medical (General) History Medical History History ICD Code hyperlipidemia chronic back pain near sighted Overweight Surgical History Surgery Date(Month/Year) No history [facility], [facility] 10 [facility] March 2020 Hospitalization History Reason Date(Month/Year) No history
== END 2025-05-21 08:12 | disposition home or self-care (01) ==
LOC: HO.HMGAL 08:06
PROVIDERS: PCP Internal Medicine Medical Oncology; Visit Provider Registered Nurse Emergency
DX: J30.89 Other allergic rhinitis (principal)
CPT/HCPCS: 95117; 95165

== ENCOUNTER 2025-05-28 08:11 | Outpatient (AMB) | payer OTHER, SELFPAY ==
--- OUTSIDE RECORDS SUMMARY | 2022-08-31 06:30 | XMS_ITS | Continuity of Care Document ---
Author Organization [facility] Address [address] [place] [address] [address] [place] [address] Phone Care Team Providers Care Clothing Worker Name Role Phone Maximino BURGESS FACS RVT [...] Providers Copied on Encounter [facility], [address] [place] [address] [address], [place], [id number], tel:[phone] CVR [facility] Body mass index (BMI) 27.0-27.9, adultSpider Veins - (Telangiecta bernabe) Aug- 3 Maximino BURGESS FACS RVT TIMOTEO Tim. [address] [facility] [address], [place], [address], [place]. tel:[phone] Referring Provider: Landen Henao, [address] [facility] [address], [place], [address]. tel:[phone] [facility], [address] [facility] [facility] [address], [place], [id number], [place] tel:[phone] [facility] - [place] - [place] Spider Veins - (Telangiecta bernabe) 2 Maximino BURGESS FACS RVT TIMOTEO Tim. [address] [facility], [address], [place], [address], [place]. tel:[phone] Referring Provider: Landen Corral MD E, [address] [facility] [address], [place], [address]. tel:[phone] Family History Family Member Type Diagnosis Age At Onset No Information Payers Payer name Insurance type Covered alliance party ID Authoriza tion(s) Self Pay 09 [...]
--- OUTSIDE RECORDS SUMMARY | 2024-03-20 09:30 | XMS_ITS ---
Author Organization Landen Corral III, MD Address [address] [place] [address] [place] [address] Care Team Providers Care Sight Mounter Name Role Phone Dr. Landen Corral III [...] Date Provider Diagnosis Landen Corral III, MD [address] [place] [address] [address] [place], [place] [address] 03/20/2024 Landen Corral Overweight E66.3 ; Hyperlipidemia [...] Name:Landen Henao Ellis , 07/23/2025 02:30:00 PM, [address] [place] [address] [address], [place], [address], Provider Name:Landen Henao Ellis , 03/26/2026 02:30:00 PM, [address] [place] [address] [address], [place], [address], Progress Notes * Aniya LOAIZACorwinOB:1965 (58 yo M)Acc No.[id number]:03/20/2024 Progress Notes Patient: Roberto ZAMAN Provider: Sukhdev Corral MD :1965 A ge:58 Y S ex:Male Date:03/20/2024 Address:[address] [place] [phone] Subjective: * Chief Complaints: * A nnual [...] and is working. He was born in [place]. * Medications: T akingZyrTEC Allergy 10 [...] 0 03/20/2024 Generated for Gonzalo vasquez/Minerva/eTransmitting on: 07/29/2024 08:21 AM EST History and Physical Notes * [...]
--- OUTSIDE RECORDS SUMMARY | 2024-05-15 10:00 | XMS_ITS ---
Author Organization Landen Corral III, MD Address [address] [place] [address] [place] [address] Care Team Providers Care Director Pharmacology Name Role Phone Dr. Landen Corral III Primary Care Provider Allergies Allergen (clinical drug ingredient) Drug/Non Drug Allergy documented on EMR Reaction Allergy Type Onset Date Status environmental (uncoded) Unknown Allergy Active insects (uncoded) Unknown Allergy Ac tive Statins Support muscle pain Drug Allergy Active Reason For Referral Reason Evaluate and Treat Bilateral Hearing Loss Diagnosis 1 Bilateral hearing lo ss, unspecified hearing loss type (H91.93) Referral Organization Landen Corral III, MD Referring Provider First Name Landen Referring Provider Last Name Ellis Referring Provider Speciality Internal M edicine Referred Provider [facility], [facility], [facility] Referred Provider Specialty Otolaryngolo gy General Notes D, Maritza 05/18/2024 10:38:44 AM > Cover sheet, referral and progress note faxed Referral Priority Routine Referral Appointment Date 09/27/2024 REASON FOR VISIT Hearing loss, Sleep apnea, Insomnia, Depression, Hyperlipidemia Medications Medication SIG (Take, Route, Frequency, Duration) Notes Start Date End Date Status Citalopram Hydrobromide 10 MG 1 tablet Orally Once a day Active ZyrTEC Allergy 10 MG 1 tablet Orally Onc e a day Active Fluvastatin Sodium 40 MG TAKE 1 CAPSULE BY MOUTH DAILY Active Social History Tobacco Use: Social History Observation Description Date Details (start date - stop date) Former Smoker NA - NA Sex Assigned At : Social History Observation Description Sex Assigned At Male Tobacco Use/Smoking Question Answer Notes Patient is a former smoker How long has it been since you last smoked? > 10 years Additional Findings: Tobacco Non-User Ex-cigaret te smoker Tobacco Control (Standard) Question Answer Notes Tobacco use: Former smoker How long has it been since you last smoked? Grea ter than 10 years Additional Findings: Tobacco non-user Ex-cigaret te smoker AUDIT-C (Standard) Question Answer Notes Did you have a drink containing alcohol in the p ast year? No Points 0 Interpretation Negative Vital Signs Temperature 97.9 degrees Fahrenheit 05/15/20 24 Blood pressure systolic 126 mm Hg 05/15/20 24 Blood pressure diastolic 82 mm Hg 024 Heart Rate 65 /min 05/15/2024 Height 70 in 05/15/2024 Weight 193 lbs 05/15/2024 BMI 27.69 kg/m2 05/15/2024 Encounters Encounter Location Date Provider Diagnosis Landen Corral III, MD [address] [place] [address] [place] [address] 05/15/2024 Landen Corral Overweight E66.3 ; Hyperlipidemia E78.5 ; BPH (benign prostatic hypertrophy) N40.0 ; Former smoker Z87.891 ; Obstructive sleep apnea G47.33 ; Reactive depression F32.9 and Statin intolerance Z78.9 Assessments Encounter Date Diagnosis (ICD Code) Assessment Notes Treat ment Notes Treatment Clinical Notes 05/15/2024 Overweight (ICD-10 - E66.3) His body mass index is 28. He has lost 2 pounds. We made a plan to continue to lose weight at a rate of one half of a pound per week. 05/15/2024 Hyperlipidemia (ICD-10 - E78.5) His lipids were reviewed. His total cholesterol is 235 which is acceptable. He is able to take the fluvastatin without myalgias. His triglycerides are quite elevated at 268 and we reviewed the aanimal fat in his diet. 05/15/2024 BPH (benign prostati c hypertrophy) (ICD-10 - N40.0) He ariises from sleep on the average once a month. We discussed modifications in his lifestyle he could make to reduce nocturia. 05/15/2024 Former smoker (ICD-1 0 - Z87.891) He has a plan for maintenance of abstinence in times of illness and distress. He is highly motivated not to smoke. 05/15/2024 Obstructive sleep apnea (ICD-10 - G47.33) He will continue using the CPAP. He denies any daytime somnolence. 05/15/2024 Reactive depression (ICD-10 - F32.9) He does not feel depressed lately. His depression is in remission and he is doing well. 05/15/2024 Statin intolerance (ICD-10 - Z78.9) He has had no myalgias with fluvastatin. He is not allergic to statins. He is intolerant to the last lipid soluble statins. Plan Of Treatment Medication Medication Name Sig Start Date Stop Date Notes Citalopram Hydrobromide 10 MG 1 tablet Orally Once a day ZyrTEC Allergy 10 MG 1 tablet Orally Once a day Fluvastatin Sodium 40 MG TAKE 1 CAPSULE BY MOUTH DAILY Pending Test Test Name Order Date PROFILE, FASTING (COMPREHENSIVE METABOLI C) 05/15/2024 PSA, TOTAL 05/15/2024 CBC WITH AUTO DIFF 05/15/2024 Lipid Panel 05/15/2024 Referrals Referral Date Details 05/15/2024 05/15/2024, Evaluate and Treat Bilateral Hearing Loss, of [facility], [facility] Next Appt Details Follow Up: 4 Months, Three t imes a year, Reason: OV, Regular Checkup Provider Name:Landen Corral , 07/23/2025 02:30:00 PM, [address] [place] [address] [address], [place], [address], Provider Name:Landen Croral , 03/26/2026 02:30:00 PM, [address] [place] [address] [address], [place], [address], Progress Notes * JOSSE AfiaisDOB:1965 (58 yo M)Acc No.[id number]:05/15/2024 Progress Notes Patient: Roberto ZAMAN Provider: Sukhdev Corral MD :1965 A ge:58 Y S ex:Male Date:05/15/2024 Address:[address] [place], [place] [phone] Subjective: * Chief Complaints: * H earing lossSleep apneaInsomniaDepressionHyperlipidemia * HPI: C OVID-19 Screening: Questions H ave you [...] to COVID-19 in the past? N o * : The patient, a 58-year-old male, reported taking antioxidant supplements which have improved his condition, but he still experiences some issues which he attributes to allergies. He mentioned occasional insomnia but generally sleeps well. He reported experiencing tinnitus and believes he may have some hearing loss, particularly in the high-frequency range. He last had his hearing tested in 2014. He also mentioned that his cholesterol levels are not ideal but have not worsened. He experiences seasonal depression, particularly in the winter, but does not feel severely depressed at present. He uses a CPAP machine for sleep and finds it beneficial. Blood work done March 16, 2024 showed white blood cell count 6.9 hematocrit 46.7, platelets 282, glucose 89 BUN 14, creatinine 1.16, total cholesterol 239, triglycerides 175, HDL 38, LDL 169 PSA 2.0. * ROS: G eneral/Constitutional: pain o nly normal aches and pains. C hills d enies.?Fatigue a dmits. F ever d enies. E NT: Decreased hearing i n both ears. R espiratory: Cough d enies. C ardiovascular: [...] * Surgical History: c olonoscopy, based a [facility], every 10 years March 2020No history * Hospitalization/Major Diagno stic Procedure: N o history * Family History: F ather: 79 yrs, [...] dditional Findings: Tobacco Non-User E x-cigarette smoker Tobacco Control (Standard) T obacco use: F ormer smoker H ow long has it been since you last smoked??Greater than 10 years A dditional Findings: Tobacco non-user E x-cigarette smoker D rugs/Alcohol: D rugs H ave you used drugs other than those for medical reasons in the past 12 months? N o D rug/Alcohol: A ANGELINE-C (Standard) D id you have a drink containing alcohol in the past year? N o P oints 0 I nterpretation N egative H e is single without children and is working. He was born in [place], [place]. * Medications: T akingZyrTEC Allergy 10 MG Tablet 1 tablet Orally Once a day Citalopram Hydrobromide 10 MG Tablet 1 tablet Orally Once a day Fluvastatin Sodium 40 MG Capsule TAKE 1 CAPSULE BY MOUTH DAILY Medication List reviewed and reconciled with the patientTaking ZyrTEC Allergy 10 MG Tablet 1 tablet Orally Once a day Taking Citalopram Hydrobromide 10 MG Tablet 1 tablet Orally Once a day Taking Fluvastatin Sodium 40 MG Capsule TAKE 1 CAPSULE BY MOUTH DAILY Medication List reviewed and reconciled with the patient * Allergies: S tatins Support: muscle pain - Side Effectsinsectsenvironmentalno[Allergies Verified] Objective: * Vitals: H t: 70, Wt: 193, BMI:27.69, BP: 126/82, HR: 65, Temp: 97.9, Wt-k.54. * Examination: G eneral Examination: GENERAL APPEARANCE: p lestefano, well nourished, well developed, in no acute [...] sensory exam intact. PSYCH: a lert, oriented. - : E ars:Normal, Breathing: Normal, Heart: Normal. Assessment: * Assessment: 1. H yperlipidemia - E78.5 (Primary) N otes :His lipids were reviewed. His total cholesterol is 235 which is acceptable. He is able to take the fluvastatin without myalgias. His triglycerides are quite elevated at 268 and we reviewed the aanimal fat in his diet. 2 . O verweight - E66.3 N otes :His body mass index is 28. He has lost 2 pounds. We made a plan to continue to lose weight at a rate of one half of a pound per week. 3 . B PH (benign prostatic hypertrophy) - N40.0 N otes :He ariises from sleep on the average once a month. We discussed modifications in his lifestyle he could make to reduce nocturia. 4 . F ormer smoker - Z87.891 N otes :He has a plan for maintenance of abstinence in times of illness and distress. He is highly motivated not to smoke. 5 . O bstructive sleep apnea - G47.33 N otes :He will continue using the CPAP. He denies any daytime somnolence. 6 . R eactive depression - F32.9 N otes :He does not feel depressed lately. His depression is in remission and he is doing well. 7 . S tatin intolerance - Z78.9 N otes :He has had no myalgias with fluvastatin. He is not allergic to statins. He is intolerant to the last lipid soluble statins. Plan: * Treatment: 2. B PH (benign prostatic hypertrophy) L AB: PROFILE, FASTING (COMPREHENSIVE METABOLIC) L AB: PSA, TOTAL L AB: CBC WITH AUTO DIFF L AB: Lipid Panel 3. O thers Referral To:of [facility] Otolaryngology Reason:Evaluate and Treat Bilateral Hearing Loss * Procedure Codes: * Preventive Medicine: Counseling: C are goal [...] of tobacco use and urged to quit. 1 07/15/2023 * Follow Up: 4 Months, Three times a year (Reason: OV, Regular Checkup) * Images: * Sign off status: Completed true * Provider: Sukhdev Corral MD Date: 07/15/2023 Generated for Printi ng/Faechog/eTransmitting on: 07/29/2024 08:20 AM EST History and Physical Notes * HPI (History of Present Illness) Category Sub-Category Detail Notes COVID-19 Screening Questions Have you had any new onset fever, chills, cough, congestion, sore throat, shortness of breath, muscle aches?: No Have you been exposed to the virus withi n the last 10 days?: No Have you travelled internationally in [facility] last 10 days?: No Have you been exposed to COVID-19 in the past?: No Examination Category Sub-Category Detail Notes General Examination [...] PSYCH: alert, oriented ORAL CAVITY: normal, unremarkable Consultation Request Notes Referral Date Referring Provider Referred Provider Not layla 05/15/2024 Landen Corral Surgeons, of [facility], [facility] Evaluate and Treat Bilateral Hearing Loss
--- OUTSIDE RECORDS SUMMARY | 2024-08-25 04:11 | XMS_ITS ---
Author Organization Landen Corral III, MD Address [address] [place] [address] [place] [address] Care Team Providers Care Lpta Name Role Phone Dr. Landen Corral III Primary Care Provider [phone] REASON FOR VISIT Rx Request Medications Medication SIG (Take, Route, Fr equency, Duration) Notes Start Date End Date Status Azithromycin 250 MG as directed Orally 2 Tablets on the first day, one tablet the rest of the days for 5 days 08/25/2024 08/30/2024 Active Social History Sex Assigned At : Social History Observation Description Sex Assigned At Male Encounters Encounter Location Date Provider Diagnosis Landen Corral III, MD [address] [place] [address] [place] [address] 08/25/2024 Landen Corral Plan Of Treatment Medication Medication Name Sig Start Date Stop Date Notes Azithromycin 250 MG as directed Orally 2 Tablets on the first day, one tablet the rest of the days for 5 days 08/25/2024 08/30/2024 Next Appt Details Provider Name:Landen Corral , 07/23/2025 02:30:00 PM, [address] [place] [address] [place], [address], Provider Name:Landen Corral , 03/26/2026 02:30:00 PM, [address] [place] [address] [place], [address], Progress Notes * Juan Antonio LOAIZAOB:1965 (58 yo M)Acc No.[id number]:08/25/2024 Patient: Roberto ZAMAN :1965 A ge:58 Y S ex:Male Address:[address] [place] [phone] * Refills Start Azithromycin Tablet, 250 MG, Orally, 6, as directed, 2 Tablets on the first day, one tablet the rest of the days, 5 days, Refills=0 * true * Date: Generated for Gonzalo vasquez/Minerva/Soraidaitting on: 07/29/2024 08:20 AM EST
--- OUTSIDE RECORDS SUMMARY | 2024-09-13 10:00 | XMS_ITS ---
Author Organization Landen Corral III, MD Address [address] [place] [address] [place] [address] Care Team Providers Care Park Naturalist Name Role Phone Dr. Landen Corral III [...] Date Provider Diagnosis Landen Corral III, MD [address] [place] [address] [address] [address] 09/13/2024 Landen Corral Overweight E66.3 ; Hyperlipidemia [...] Provider Name:Landen Corral , 07/23/2025 02:30:00 PM, [address] [place] [address] [address], [place], [address], Provider Name:Landen Corral , 03/26/2026 02:30:00 PM, [address] [place] [address] [address], [place], [address], Progress Notes * Juan Antonio LOAIZAOB:1965 (58 yo M)Acc No.[id number]:09/13/2024 Progress Notes Patient: Roberto ZAMAN Provider: Sukhdev Corral MD :1965 A ge:58 Y S ex:Male Date:09/13/2024 Address:[address] [place] [phone] Subjective: * Chief Complaints: * H yperlipidemiaObstructive [...] and is working. He was born in [place]. * Medications: T akingZyrTEC Allergy 10 [...] 0 09/13/2024 Generated for Gonzalo vasquez/Minerva/Soraidaitting on: 07/29/2024 08:21 AM EST History and [...]
--- OUTSIDE RECORDS SUMMARY | 2025-01-10 09:54 | XMS_ITS ---
Author Organization Landen Corral III, MD Address [address] [place] [address] [place] [address] Care Team Providers Care Farmworker Fryer Farm Name Role Phone Dr. Landen Corral III [...] Date Provider Diagnosis Landen Corral III, MD [address] [place] [address] [place] [address] 01/10/2025 Landen Corral Overweight E66.3 Assessments Encounter [...] Provider Name:Landen Corral , 07/23/2025 02:30:00 PM, [address] [place] [address] [place], [address], Provider Name:Landen Corral , 03/26/2026 02:30:00 PM, [address] [place] [address] , [address], [place], [address], Progress Notes * Juan Antonio LOAIZAOB:1965 (59 yo M)Acc No.[id number]:01/10/2025 Patient: Roberto ZAMAN :1965 A ge:59 Y S ex:Male Address:[address] [place] [address] * Refills Refill Fluvastatin Sodium Capsule, 40 MG, Orally, 90, TAKE 1 CAPSULE BY MOUTH DAILY, once a day, 90 days, Refills=3 * true * Date: Generated for Gonzalo vasquez/Minerva/Sonia on: 07/29/2024 08:20 AM EST
--- OUTSIDE RECORDS SUMMARY | 2025-01-17 10:30 | XMS_ITS ---
Author Organization Landen Corral III, MD Address [address] [place] [address] [place] [address] Care Team Providers Care Rn Referral Name Role Phone Dr. Landen Corral III [...] Provider Diagnosis Landen Corral III, MD [address] [place] [address] [address] [place], [place] [address] 01/17/2025 Landen Corral Overweight E66.3 ; Hyperlipidemia [...] Name:Landen Corral , 07/23/2025 02:30:00 PM, [address] [place] [address] [address], [place], [address], Provider Name:Landen Corral , 03/26/2026 02:30:00 PM, [address] [place] [address] [address], [place], [address], Progress Notes * Juan Antonio LOAIZAOB:1965 (59 yo M)Acc No.[id number]:01/17/2025 Progress Notes Patient: Roberto ZAMAN Provider: Sukhdev Corral MD :1965 A ge:59 Y S ex:Male Date:01/17/2025 Address:[address] [place] [phone] Subjective: * Chief Complaints: * H yperlipidemiaOverweightSleep [...] * Surgical History: c olonoscopy, based a [facility], every 10 years March 2020No [...] and is working. He was born in [place]. * Medications: T akingZyrTEC Allergy 10 [...] 0 01/17/2025 Generated for Gonzalo vasquez/Minerva/Lesviasmitting on: 07/29/2024 08:21 AM EST History and [...]
--- OUTSIDE RECORDS SUMMARY | 2025-03-21 09:30 | XMS_ITS ---
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 Landen Corral III Primary Care Provider Allergies Allergen (clinical drug ingredient) Drug/Non Drug Allergy documented on EMR Reaction Allergy Type Onset Date Status Lactose Intolerance Unknown Allergy Active environmental (uncoded) Unknown Allergy Active insects (uncoded) Unknown Allergy Ac tive Statins Support muscle pain Drug Allergy Active Reason For Referral Reason Evaluate and Treat Throat Pain Diagnosis 1 Throat pain (R07.0) Referral Organization Landen Corral III, MD Referring Provider First Name Landen Referring Provider Last Name Ellis Referring Provider Speciality Internal M edicine Referred Provider [facility], [facility] Referred Provider Specialty Otolaryngolo gy General Notes D, Maritza 03/26/2025 12:48:15 PM > cover sheet, referral and progress note faxed. Referral Priority Routine REASON FOR VISIT Annual Exam Medications Medication [...] has it been since you last smoked? Sandeepa ter than 10 years Additional Findings: Tobacco non-user Ex-cigaret te smoker AUDIT-C (Standard) Question Answer Notes Did you have a drink containing alcohol in the p ast year? No Points 0 Interpretation Negative Vital Signs Temperature 98.1 degrees Fahrenheit 03/21/20 25 Blood pressure systolic 140 mm Hg 03/21/20 25 Blood pressure diastolic 78 mm Hg 025 Heart Rate 76 /min 03/21/2025 Height 70 in 03/21/2025 Weight 197 lbs 03/21/2025 BMI 28.26 kg/m2 03/21/2025 Encounters Encounter Location Date Provider Diagnosis Landen Corral III, MD [address] [place] [address] [place] [address] 03/21/2025 Landen Corral Overweight E66.3 ; Hyperlipidemia E78.5 ; BPH (benign prostatic hypertrophy) N40.0 ; Former smoker Z87.891 ; Statin intolerance Z78.9 and Obstructive sleep apnea G47.33 Assessments Encounter Date Diagnosis (ICD Code) Assessment Notes Treat ment Notes Treatment Clinical Notes 03/21/2025 Overweight (ICD-10 - E66.3) His body mass index is 28. We made a plan to continue to lose weight at a rate of one half of a pound per week.His weight is increasing as his systolic blood pressure. There is trying to restrict sodium and increase physical activity and attempt to lose enough weight to have a normal body mass index 03/21/2025 Hyperlipidemia (ICD-10 - E78.5) The only statin which he can tolerate his fluvastatin. He is on a maximum dose at this time with a total cholesterol near his target range. We have discussed weight reduction, dietary means to reduce cholesterol and increasing physical activity. 03/21/2025 BPH (benign prostati c hypertrophy) (ICD-10 - N40.0) He has been rising from sleep about once a night to urinate. We have reviewed lifestyle modification she could back to reduce this. 03/21/2025 Former smoker (ICD-1 0 - Z87.891) He has a plan for maintenance of abstinence in times of illness and distress. He is highly motivated not to smoke. 03/21/2025 Statin intolerance (ICD-10 - Z78.9) He has had no myalgias with fluvastatin. He is not allergic to statins. He is intolerant to the last lipid soluble statins. 03/21/2025 Obstructive sleep apnea (ICD-10 - G47.33) He will continue using the CPAP. He denies any daytime somnolence. Plan Of Treatment Medication Medication Name Sig Start Date Stop Date Notes Fluvastatin Sodium 40 MG TAKE 1 CAPSULE BY MOUTH DAILY Orally once a day ZyrTEC Allergy 10 MG 1 tablet Orally Once a day Citalopram Hydrobromide 10 MG 1 tablet Orally Once a day Pending Test Test Name Order Date PROFILE, FASTING (COMPREHENSIVE METABOLI C) 03/21/2025 PSA, TOTAL 03/21/2025 CBC w DIFF 03/21/2025 Lipid Panel 03/21/2025 Referrals Referral Date Details 03/21/2025 03/21/2025, Evaluate and Treat Throat Pain, of [facility], [facility] Surgeons Next Appt Details Follow Up: 4 Months, Reason: OV Provider Name:Landen Corral , 07/23/2025 02:30:00 PM, [address] [place] [address] [address], [place], [address], Provider Name:Landen Corral , 03/26/2026 02:30:00 PM, [address] [place] [address] [address], [place], [address], Progress Notes * JOSSE Juan AntonioOB:1965 (59 yo M)Acc No.[id number]:03/21/2025 Progress Notes Patient: Roberto ZAMAN Provider: Sukhdev Corral MD :1965 A ge:59 Y S ex:Male Date:03/21/2025 Address:[address] [place] [phone] Subjective: * Chief Complaints: * A nnual Exam * HPI: D epression Screening: He returns to the office for his annual examination. Since his last visit he has been healthy and well. He has noted occasional heartburn for which he takes byny-rtt-nwpbwto medication with success. He is using his CPAP machine with good effect every night. He denies any chest pain shortness of breath bleeding nausea vomiting or diarrhea. His weight is stable. His depression is in remission. He has been compliant with all of his medication. His blood work was reviewed with him in detail today.The blood work done March 14, 2025 showed white count 6.9 hematocrit 45.6 platelets 261 glucose 92 BUN 13 creatinine 1.16 total cholesterol 225 triglycerides 218 HDL 34 LDL 151. PHQ-9 L ittle interest or pleasure in doing things?Several days F eeling down, depressed, or hopeless S everal T rouble falling or staying asleep, or sleeping too much N ot at all F eeling tired or having little energy S ever P oor appetite or overeating N ot at all F eeling bad about yourself or that you are a failure, or have let yourself or your family down N ot at all T rouble concentrating on things, such as reading the newspaper or watching television S ever M oving or speaking so slowly that [...] C OVID-19 Screening: Questions H ave you had any new onset fever, chills, cough, congestion, sore throat, shortness of breath, muscle aches? N o S SILVANA Questions: SDOH Questions I n the past year have you been worried about losing your housing? N o I n the past year have you or any family members you live with been unable to get any of the following when it was really needed? Check all that apply: U tilities, Medicine or Healthcare * ROS: G eneral/Constitutional: pain o nly [...] enies. D iarrhea d enies. H eartburn R ecently. N ausea d enies. R ectal bleeding [...] * Surgical History: c olonoscopy, based a [facility], every 10 years March 2020No history * [...] and is working. He was born in [place], [place]. * Medications: T akingFluvastatin Sodium 40 MG Capsule TAKE 1 CAPSULE BY MOUTH DAILY Orally once a day ZyrTEC Allergy 10 MG Tablet 1 tablet Orally Once a day Citalopram Hydrobromide 10 MG Tablet 1 tablet Orally Once a day Medication List reviewed and reconciled with the patientTaking Fluvastatin Sodium 40 MG Capsule TAKE 1 CAPSULE BY MOUTH DAILY Orally once a day Taking ZyrTEC Allergy 10 MG Tablet 1 tablet Orally Once a day Taking Citalopram Hydrobromide 10 MG Tablet 1 tablet Orally Once a day Medication List reviewed and reconciled with the patient * Allergies: S tatins Support: muscle pain - Side EffectsinsectsenvironmentalLactose Intoleranceno[Allergies Verified] Objective: * Vitals: H t: 70, Wt: 197, BMI:28.26, BP: 140/78, HR: 76, Temp: 98.1, Wt-k.36. * Examination: G eneral Examination: GENERAL [...] sounds normal, no ascites, no organomegaly, no mass: o verweight. RECTAL EXAM: n ot examined. MUSCULOSKELETAL: e xtremities unremarkable, no clubbing, cyanosis or edema. PERIPHERAL PULSES: n ormal. NEUROLOGIC: a lert and oriented, cranial nerves 2-12 grossly intact, deep tendon reflexes 2+ symmetrical, motor strength normal upper and lower extremities, sensory exam intact. PSYCH: a lert, oriented. Assessment: * Assessment: 1. H yperlipidemia - E78.5 (Primary) N otes :The only statin which he can tolerate his fluvastatin. He is on a maximum dose at this time with a total cholesterol near his target range. We have discussed weight reduction, dietary means to reduce cholesterol and increasing physical activity. 2 . O verweight - E66.3 N otes :His body mass index is 28. We made a plan to continue to lose weight at a rate of one half of a pound per week.His weight is increasing as his systolic blood pressure. There is trying to restrict sodium and increase physical activity and attempt to lose enough weight to have a normal body mass index 3 . B PH (benign prostatic hypertrophy) - N40.0 N otes :He has been rising from sleep about once a night to urinate. We have reviewed lifestyle modification she could back to reduce this. 4 . F ormer smoker - Z87.891 N otes :He has a plan for maintenance of abstinence in times of illness and distress. He is highly motivated not to smoke. 5 . S tatin intolerance - Z78.9 N otes :He has had no myalgias with fluvastatin. He is not allergic to statins. He is intolerant to the last lipid soluble statins. 6 . O bstructive sleep apnea - G47.33 N otes :He will continue using the CPAP. He denies any daytime somnolence. Plan: * Treatment: 2. O verweight Continue Fluvastatin Sodium Capsule, 40 MG, TAKE 1 CAPSULE BY MOUTH DAILY, Orally, once a day; C ontinue ZyrTEC Allergy Tablet, 10 MG, 1 tablet, Orally, Once a day; C ontinue Citalopram Hydrobromide Tablet, 10 MG, 1 tablet, Orally, Once a day. L AB: PROFILE, FASTING (COMPREHENSIVE METABOLIC) L AB: PSA, TOTAL L AB: CBC w DIFF L AB: Lipid Panel 3. B PH (benign prostatic hypertrophy) L AB: PROFILE, FASTING (COMPREHENSIVE METABOLIC) L AB: PSA, TOTAL L AB: CBC w DIFF L AB: Lipid Panel 4. O thers Referral To:[facility], [facility] Surgeons Otolaryngology Reason:Evaluate and Treat Throat Pain * Procedure Codes: * Preventive Medicine: Counseling: [...] tobacco use and urged to quit. 0 03/21/2025 * Follow Up: 4 Months (Reason: OV) * Images: * Sign off status: Completed true * Provider: Sukhdev Corral MD Date: 0 03/21/2025 Generated for Emotive ng/Minerva/eTransmitting on: 1 07/29/2024 08:21 AM EST History and Physical [...] throat, shortness of breath, muscle aches?: No SDOH Questions SDOH Questions In the past year have you been worried about losing your housing?: No In the past year have you or any family members you live with been unable to get any of the following when it was really needed? Check all that apply:: Utilities, Medicine or Healthcare Examination Category Sub-Category Detail Notes General Examination [...] sounds normal, no ascites, no organomegaly, no mass: overweight NEUROLOGIC: alert and oriented, cranial nerves [...] Referral Date Referring Provider Referred Provider Not 03/21/2025 Landen Corral Surgeons, of [facility], [facility] Evaluate and Treat Throat Pain
--- OUTSIDE RECORDS SUMMARY | 2025-05-28 08:21 | XMS_ITS | Patient Health Record ---
Author Organization Landen Corral III, MD Address [address] [place] [address] [place] [address] Care Team Providers Care Lifestyle Director Name Role Phone Dr. Landen Corral III [...] Internal M edicine Referred Provider ETali Surgeons, [facility], [facility] Referred Provider Specialty Otolaryngolo gy General [...] Problem Status W/U Status Risk Notes Problem 9876638 Former smoker (Z87.891) Active confirmed He has a plan for maintenance of abstinence in times of illness and distress. He is highly motivated not to smoke. Problem 38062954 Hyperlipidemia (E78.5) Active confirmed The only statin which he can tolerate his fluvastatin. He is on a maximum dose at this time with a total cholesterol near his target range. We have discussed weight reduction, dietary means to reduce cholesterol and increasing physical activity. Problem 237182741 Overweight (E66.3) Active confirmed His body mass [...] Problem Benign prostatic hypertrophy without outflow obstruction (905828923) BPH (benign prostatic hypertrophy) (N40.0) Active confirmed He has been rising from sleep about once a night to urinate. We have reviewed lifestyle modification she could back to reduce this. Problem 97836578 Statin intolerance (Z78.9) Active confirmed He has had no myalgias with fluvastatin. He is not allergic to statins. He is intolerant to the last lipid soluble statins. Problem 25918439 Obstructive sleep apnea (G47.33) Active confirmed He will continue using the CPAP. He denies any daytime somnolence. Problem Hearing loss (41663347) Bilateral hearing loss, unspecified hearing loss type (H91.93) Active confirmed Problem 95194228 Reactive depression (F32.9) Active confirmed He does [...] Provider Diagnosis Landen Corral III, MD [address] [place] [address] [place] [address] 09/13/2024 Landen Corral Overweight E66.3 ; Hyperlipidemia E78.5 ; Former smoker Z87.891 ; Obstructive sleep apnea G47.33 ; Statin intolerance Z78.9 and BPH (benign prostatic hypertrophy) N40.0 Landen Corral III, MD [address] [place] [address] [place] [address] 01/17/2025 Landen Corral Overweight E66.3 ; Hyperlipidemia E78.5 ; Former smoker Z87.891 ; Obstructive sleep apnea G47.33 ; BPH (benign prostatic hypertrophy) N40.0 and Reactive depression F32.9 Landen Corral III, MD [address] [place] [address] [place] [address] 03/21/2025 Landen Corral Overweight E66.3 ; Hyperlipidemia E78.5 ; BPH (benign prostatic hypertrophy) N40.0 ; Former smoker Z87.891 ; Statin intolerance Z78.9 and Obstructive sleep apnea G47.33 Landen Corral III, MD [address] [place] [address] [address] [place], [place] [address] 08/25/2024 Landen Corral III, MD [address] [place] [address] [address] [place], [place] [address] 01/10/2025 Landen Ellis Overweight E66.3 Assessments Encounter [...] Provider Name:Landen Corral , 07/23/2025 02:30:00 PM, [address] [place] [address] [address], [place], [address], Provider Name:Landen Corral , 03/26/2026 02:30:00 PM, [facility] [address] [place], [place], [address], Insurance Providers Payer Name Payer Address Payer Phone Subscriber Number Group Number Insured Name Patient Relationship to Insured Coverage Start Date Coverage End Date [facility] [address] [facility] [address] [place] [phone] [id number] Roberto Loaiza Self - patient is the insured Medical (General) History Medical History History ICD Code hyperlipidemia chronic back pain near sighted Overweight Surgical History Surgery Date(Month/Year) No history [facility], [facility] 10 [facility] March 2020 Hospitalization History Reason Date(Month/Year) No history
== END 2025-05-28 08:11 | disposition home or self-care (01) ==
LOC: HO.HMGAL 08:11
PROVIDERS: PCP Internal Medicine Medical Oncology; Visit Provider Registered Nurse Emergency
DX: J30.89 Other allergic rhinitis (principal)
CPT/HCPCS: 95117; 95165

== ENCOUNTER 2025-06-04 08:19 | Outpatient (AMB) | payer OTHER, SELFPAY | END 2025-06-04 08:20 | disposition home or self-care (01) | LOC: HO.HMGAL 08:19 | PROVIDERS: PCP Internal Medicine Medical Oncology; Visit Provider Registered Nurse Emergency | DX: J30.89 Other allergic rhinitis (principal) | CPT/HCPCS: 95117; 95165 ==

== ENCOUNTER 2025-06-11 08:11 | Outpatient (AMB) | payer OTHER, SELFPAY ==
--- OUTSIDE RECORDS SUMMARY | 2022-08-31 06:30 | XMS_ITS | Continuity of Care Document ---
Author Organization [facility] Address [address] [place] [address] [address] [place] [address] Phone Care Team Providers Care Outsole Molder Name Role Phone Maximino BURGESS FACS RVT Awais MAHMOOD Unavailable Unavailable Allergies, Adverse Reactions, Alerts Substance Reaction Status Criticality No Known Allergies Active No Inform ation Medications Medication Instructions Dosage Dose Quantity Effective Dates (start - stop) Status Indication Fill Status Comments citalopram 10 mg tablet 3 - Active fluvastatin 40 mg capsule 3 - Active Zyrtec 10 mg capsule 3 - Active Procedures Procedure Date No Charge For Services Advance Directives Directive Yes / No Effective Date File Name No Information Encounters Encounter Description Practice Location Reason(s) For Visit Diagnoses Date Provider Encounter Disposition [facility], [address] [place] [address] Dr Lorenzo [address], [id number], tel:[phone] [facility] Body mass index (BMI) 27.0-27.9, adultSpider Veins - (Telangiecta bernabe) Aug-0 3 Maximino BURGESS FACS RVT TIMOTEO Tim. [address], [address], [place]. tel:[phone] [facility], [address] [place] [address] Dr Lorenzo [address], [id number], tel:[phone] [facility] Spider Veins - (Telangiecta bernabe) 2 Maximino BURGESS FACS RVT TIMOTEO Tim. [address] [facility], [address], [place], [address], [place]. tel:[phone] Family History Family Member Type Diagnosis Age At Onset No Information Payers Payer name Insurance type Identifiers Authorization(s) Com mentdean Self Pay 09 Member ID:Subscriber ID:Group Name: Coverage Status Eligibility Check on: UnknownRelationship to Subscriber: selfPayer Address: [address] [place] [address], [place], [address], [facility] Phone: Social History Type Description Quantity Date Captured Comments Alcohol Use Details Caffeine Use Details Unknown Tobacco Use Status No Information Smoking Status Former smoker Non-Smoking Tobacco Use Details : No Details Available : No Details Available Sex Male Current Gender Male (finding) Vital Signs Date / Time: Height Weight BMI Pulse Rate Blood Pressure Temperature Respiratory Rate Body Surface Area Head Circumference Head Circ. Percentile Wt./Jesús. Percentile BMI percentile Pulse Ox Inhaled Ox 11:51 AM 70.00 in 87.543 kg (193.00 lbs) 27.6 9 kg/m eter (2) 2.08 meter(2) Chief Complaint And Reason For Visit No Information History Of Present Illness Encounter Date Complaint History Of Prese nt Illness No Information Functional Status Date Description Comments No Information Instructions Date Instruction Additional Infor mation Dietary needs education Related to Body mass index [BMI] 27.0-27.9, adult Assessments Type Assessment Date assessment Body mass index [BMI] 27.0-27.9, adult assessment Spider Veins - (Telangiectasia)
--- OUTSIDE RECORDS SUMMARY | 2024-03-20 09:30 | XMS_ITS ---
Author Organization Landen Corral III, MD Address [address] [place] [address] [place] [address] Care Team Providers Care Rolling Up Machine Operator Name Role Phone Dr. Landen Corral III Primary Care Provider [phone] Allergies Allergen (clinical drug ingredient) Drug/Non Drug [...] Date Provider Diagnosis Landen Corral III, MD [address] [place] [address] [address] [place], [place] [address] 03/20/2024 Landen Corral Overweight E66.3 ; Hyperlipidemia [...] Name:Landen Henao Ellis , 07/23/2025 02:30:00 PM, [address] [place] [address] [address], [place], [address], Provider Name:Landen Henao Ellis , 03/26/2026 02:30:00 PM, [address] [place] [address] [address], [place], [address], Progress Notes * Aniya LOAIZACorwinOB:1965 (58 yo M)Acc No.[id number]:03/20/2024 Progress Notes Patient: Roberto ZAMAN Provider: Sukhdev Corral MD :1965 A ge:58 Y S ex:Male Date:03/20/2024 Address:[address] [place] [phone] Subjective: * Chief Complaints: * A nnual [...] and is working. He was born in [place]. * Medications: T akingZyrTEC Allergy 10 [...] 0 03/20/2024 Generated for Gonzalo vasquez/Minerva/eTransmitting on: 1 08/12/2024 08:47 AM EST History and Physical Notes * [...]
--- OUTSIDE RECORDS SUMMARY | 2024-05-15 10:00 | XMS_ITS ---
Author Organization Landen Corral III, MD Address [address] [place] [address] [place] [address] Care Team Providers Care Tetryl Nitrator Operator Name Role Phone Dr. Landen Corral [...] Internal M edicine Referred Provider [facility], [facility], [facility] Referred Provider Specialty Otolaryngolo gy General [...] Date Provider Diagnosis Landen Corral III, MD [address] [place] [address] [place] [address] 05/15/2024 Landen Corral Overweight E66.3 ; Hyperlipidemia [...] Evaluate and Treat Bilateral Hearing Loss, of [facility], [facility] Next Appt Details Follow Up: 4 Months, Three t imes a year, Reason: OV, Regular Checkup Provider Name:Landen Corral , 07/23/2025 02:30:00 PM, [address] [place] [address] [address], [place], [address], Provider Name:Landen Corral , 03/26/2026 02:30:00 PM, [address] [place] [address] [address], [place], [address], Progress Notes * JOSSE AfiaisDOB:1965 (58 yo M)Acc No.[id number]:05/15/2024 Progress Notes Patient: Roberto ZAMAN Provider: Sukhdev Corral MD :1965 A ge:58 Y S ex:Male Date:05/15/2024 Address:[address] [place], [place] [phone] Subjective: * Chief Complaints: * H earing [...] * Surgical History: c olonoscopy, based a [facility], every 10 years March 2020No history * [...] and is working. He was born in [place], [place]. * Medications: T akingZyrTEC Allergy 10 MG [...] Lipid Panel 3. O thers Referral To:of [facility] Otolaryngology Reason:Evaluate and Treat Bilateral [...] Date: 07/15/2023 Generated for Printi ng/Faechog/eTransmitting on: 08/12/2024 08:46 AM EST History and Physical Notes * HPI (History of Present Illness) Category Sub-Category Detail Notes COVID-19 Screening Questions Have you had any new onset fever, chills, cough, congestion, sore throat, shortness of breath, muscle aches?: No Have you been exposed to the virus withi n the last 10 days?: No Have you travelled internationally in [facility] last 10 days?: No Have you [...] Not layla 05/15/2024 Landen Corral Surgeons, of [facility], [facility] Evaluate and Treat Bilateral Hearing Loss
--- OUTSIDE RECORDS SUMMARY | 2024-08-25 04:11 | XMS_ITS ---
Author Organization Landen Corral III, MD Address [address] [place] [address] [place] [address] Care Team Providers Care Rubber Boots And Shoes Repairer Name Role Phone Dr. Landen Corral III Primary Care Provider [phone] REASON FOR VISIT Rx Request Medications Medication [...] Date Provider Diagnosis Landen Corral III, MD [address] [place] [address] [place] [address] 08/25/2024 Landen Corral Plan Of Treatment Medication Medication Name Sig Start Date Stop Date Notes Azithromycin 250 MG as directed Orally 2 Tablets on the first day, one tablet the rest of the days for 5 days 08/25/2024 08/30/2024 Next Appt Details Provider Name:Landen Corral , 07/23/2025 02:30:00 PM, [address] [place] [address] [place], [address], Provider Name:Landen Corral , 03/26/2026 02:30:00 PM, [address] [place] [address] [place], [address], Progress Notes * Juan Antonio LOAIZAOB:1965 (58 yo M)Acc No.[id number]:08/25/2024 Patient: Roberto ZAMAN :1965 A ge:58 Y S ex:Male Address:[address] [place] [phone] * Refills Start Azithromycin Tablet, 250 MG, Orally, 6, as directed, 2 Tablets on the first day, one tablet the rest of the days, 5 days, Refills=0 * true * Date: Generated for Gonzalo vasquez/Minerva/Soraidaitting on: 1 08/12/2024 08:46 AM EST
--- OUTSIDE RECORDS SUMMARY | 2024-09-13 10:00 | XMS_ITS ---
Author Organization Landen oCrral III, MD Address [address] [place] [address] [place] [address] Care Team Providers Care Metal Tank Builder Name Role Phone Dr. Landen Corral III [...] Date Provider Diagnosis Landen Corral III, MD [address] [place] [address] [address] [address] 09/13/2024 Landen Corral Overweight E66.3 ; Hyperlipidemia [...] Provider Name:Landen Corral , 07/23/2025 02:30:00 PM, [address] [place] [address] [address], [place], [address], Provider Name:Landen Corral , 03/26/2026 02:30:00 PM, [address] [place] [address] [address], [place], [address], Progress Notes * Juan Antonio LOAIZAOB:1965 (58 yo M)Acc No.[id number]:09/13/2024 Progress Notes Patient: Roberto ZAMAN Provider: Sukhdev Corral MD :1965 A ge:58 Y S ex:Male Date:09/13/2024 Address:[address] [place] [phone] Subjective: * Chief Complaints: * H yperlipidemiaObstructive [...] and is working. He was born in [place]. * Medications: T akingZyrTEC Allergy 10 [...] 0 09/13/2024 Generated for Gonzalo vasquez/Minerva/Soraidaitting on: 08/12/2024 08:47 AM EST History and Physical [...]
--- OUTSIDE RECORDS SUMMARY | 2025-01-10 09:54 | XMS_ITS ---
Author Organization Landen Corral III, MD Address [address] [place] [address] [place] [address] Care Team Providers Care Airplane Cover Maker Name Role Phone Dr. Landen Corral III [...] Date Provider Diagnosis Landen Corral III, MD [address] [place] [address] [place] [address] 01/10/2025 Landen Corral Overweight E66.3 Assessments Encounter [...] Provider Name:Landen Corral , 07/23/2025 02:30:00 PM, [address] [place] [address] [place], [address], Provider Name:Landen Corral , 03/26/2026 02:30:00 PM, [address] [place] [address] , [address], [place], [address], Progress Notes * Juan Antonio LOAIZAOB:1965 (59 yo M)Acc No.[id number]:01/10/2025 Patient: Roberto ZAMAN :1965 A ge:59 Y S ex:Male Address:[address] [place] [address] * Refills Refill Fluvastatin Sodium Capsule, 40 MG, Orally, 90, TAKE 1 CAPSULE BY MOUTH DAILY, once a day, 90 days, Refills=3 * true * Date: Generated for Gonzalo vasquez/Minerva/Sonia on: 08/12/2024 08:46 AM EST
--- OUTSIDE RECORDS SUMMARY | 2025-01-17 10:30 | XMS_ITS ---
Author Organization Landen Corral III, MD Address [address] [place] [address] [place] [address] Care Team Providers Care Health Analytics Consultant Name Role Phone Dr. Landen Corral III Primary Care Provider [phone] Allergies Allergen (clinical drug ingredient) Drug/Non Drug [...] Date Provider Diagnosis Landen Corral III, MD [address] [place] [address] [address] [place], [place] [address] 01/17/2025 Landen Corral Overweight E66.3 ; Hyperlipidemia [...] Next Appt Details Follow Up: As Scheduled, [place] son: Annual Exam Provider Name:Landen Corral , 07/23/2025 02:30:00 PM, [address] [place] [address] [address], [place], [address], Provider Name:Landen Corral , 03/26/2026 02:30:00 PM, [address] [place] [address] [address], [place], [address], Progress Notes * Juan Antonio LOAIZAOB:1965 (59 yo M)Acc No.[id number]:01/17/2025 Progress Notes Patient: Roberto ZAMAN Provider: Sukhdev Corral MD :1965 A ge:59 Y S ex:Male Date:01/17/2025 Address:[address] [place] [phone] Subjective: * Chief Complaints: * H yperlipidemiaOverweightSleep [...] * Surgical History: c olonoscopy, based a [facility], every 10 years March 2020No [...] and is working. He was born in [place]. * Medications: T akingZyrTEC Allergy 10 [...] 0 01/17/2025 Generated for Gonzalo vasquez/Minerva/Lesviasmitting on: 08/12/2024 08:47 AM EST History and [...]
--- OUTSIDE RECORDS SUMMARY | 2025-03-21 09:30 | XMS_ITS ---
Author Organization Landen Corral III, MD Address [address] [place] [address] [place] [address] Care Team Providers Care Anthropology Instructor Name Role Phone Dr. Landen Corral III [...] Internal M edicine Referred Provider [facility], [facility] Referred Provider Specialty Otolaryngolo gy [...] Date Provider Diagnosis Landen Corral III, MD [address] [place] [address] [place] [address] 03/21/2025 Landen Corral Overweight E66.3 ; Hyperlipidemia [...] 03/21/2025, Evaluate and Treat Throat Pain, of [facility], [facility] Surgeons Next Appt Details Follow Up: 4 Months, Reason: OV Provider Name:Landen Corral , 07/23/2025 02:30:00 PM, [address] [place] [address] [address], [place], [address], Provider Name:Landen Corral , 03/26/2026 02:30:00 PM, [address] [place] [address] [address], [place], [address], Progress Notes * JOSSE Juan AntonioOB:1965 (59 yo M)Acc No.[id number]:03/21/2025 Progress Notes Patient: Roberto ZAMAN Provider: Sukhdev Corral MD :1965 A ge:59 Y S ex:Male Date:03/21/2025 Address:[address] [place] [phone] Subjective: * Chief Complaints: * A nnual Exam * HPI: D epression Screening: He returns to the office for his annual examination. Since his last visit he has been healthy and well. He has noted occasional heartburn for which he takes oluz-tfk-kbgffeq medication with success. He is using his [...] * Surgical History: c olonoscopy, based a [facility], every 10 years March 2020No history [...] and is working. He was born in [place], [place]. * Medications: T akingFluvastatin Sodium 40 MG [...] AB: Lipid Panel 4. O thers Referral To:[facility], [facility] Surgeons Otolaryngology Reason:Evaluate and Treat Throat [...] Corral MD Date: 0 03/21/2025 Generated for [employer] D[employer] ng/Nohemig/eTransmitting on: 1 08/12/2024 08:47 AM EST History [...] Provider Not 03/21/2025 Landen Corral Surgeons, of [facility], [facility] Evaluate and Treat Throat Pain
--- OUTSIDE RECORDS SUMMARY | 2025-06-11 08:48 | XMS_ITS | Patient Health Record ---
Author Organization Landen Corral III, MD Address [address] [place] [address] [place] [address] Care Team Providers Care It Data Architect Name Role Phone Dr. Landen Corral III Primary Care Provider [phone] Allergies Allergen (clinical drug ingredient) Drug/Non Drug [...] Internal M edicine Referred Provider [facility] Surgeons, [facility], [facility] Referred Provider Specialty Otolaryngolo gy General Notes [...] Problem Status W/U Status Risk Notes Problem 7215450 Former smoker (Z87.891) Active confirmed He has a plan for maintenance of abstinence in times of illness and distress. He is highly motivated not to smoke. Problem 59004207 Hyperlipidemia (E78.5) Active confirmed The only statin which he can tolerate his fluvastatin. He is on a maximum dose at this time with a total cholesterol near his target range. We have discussed weight reduction, dietary means to reduce cholesterol and increasing physical activity. Problem 077194270 Overweight (E66.3) Active confirmed His body mass [...] Problem Benign prostatic hypertrophy without outflow obstruction (294089352) BPH (benign prostatic hypertrophy) (N40.0) Active confirmed He has been rising from sleep about once a night to urinate. We have reviewed lifestyle modification she could back to reduce this. Problem 67323846 Statin intolerance (Z78.9) Active confirmed He has had no myalgias with fluvastatin. He is not allergic to statins. He is intolerant to the last lipid soluble statins. Problem 15895687 Obstructive sleep apnea (G47.33) Active confirmed He will continue using the CPAP. He denies any daytime somnolence. Problem Hearing loss (88511815) Bilateral hearing loss, unspecified hearing loss type (H91.93) Active confirmed Problem 17209478 Reactive depression (F32.9) Active confirmed He does [...] Provider Diagnosis Landen Corral III, MD [address] [place] [address] [place] [address] 09/13/2024 Landen Corral Overweight E66.3 ; Hyperlipidemia E78.5 ; Former smoker Z87.891 ; Obstructive sleep apnea G47.33 ; Statin intolerance Z78.9 and BPH (benign prostatic hypertrophy) N40.0 Landen Corral III, MD [address] [place] [address] [place] [address] 01/17/2025 Landen Corral Overweight E66.3 ; Hyperlipidemia E78.5 ; Former smoker Z87.891 ; Obstructive sleep apnea G47.33 ; BPH (benign prostatic hypertrophy) N40.0 and Reactive depression F32.9 Landen Corral III, MD [address] [place] [address] [place] [address] 03/21/2025 Landen Corral Overweight E66.3 ; Hyperlipidemia E78.5 ; BPH (benign prostatic hypertrophy) N40.0 ; Former smoker Z87.891 ; Statin intolerance Z78.9 and Obstructive sleep apnea G47.33 Landen Corral III, MD [address] [place] [address] [address] [place], [place] [address] 08/25/2024 Landen Corral III, MD [address] [place] [address] [address] [place], [place] [address] 01/10/2025 Landen Ellis Overweight E66.3 Assessments Encounter [...] C) 11/22/2019 PROFILE, FASTING (COMPREHENSIVE METABOLI C) 03/21/2025 PROFILE, [...] C) 06/08/2017 PROFILE, FASTING (COMPREHENSIVE METABOLI C) 09/13/2024 PROFILE, RANDOM (COMPREHENSIVE METABOLIC ) 10/12/2017 PROFILE, [...] Panel 04/15/2022 Lipid Panel 03/28/2021 Lipid Panel 03/21/2025 Lipid Panel 05/15/2024 Lipid Panel 01/17/2025 Lipid Panel 03/04/2022 Next Appt Details Provider Name:Landen Corral , 07/23/2025 02:30:00 PM, [address] [place] [address] D[address] [place], [place], [phone], Provider Name:Landen Corral , 03/26/2026 02:30:00 PM, [facility] DANIELLE READ, [place], [id number], Insurance Providers Payer Name Payer Address Payer Phone Subscriber Number Group Number Insured Name Patient Relationship to Insured Coverage Start Date Coverage End Date [facility] [address] [facility] [address] [place] [phone] [id number] Roberto Loaiza Self - patient is the insured Medical (General) History Medical History History ICD Code hyperlipidemia chronic back pain near sighted Overweight Surgical History Surgery Date(Month/Year) No history [facility] March 2020 Hospitalization History Reason Date(Month/Year) No history
== END 2025-06-11 08:12 | disposition home or self-care (01) ==
LOC: HO.HMGAL 08:11
PROVIDERS: PCP Internal Medicine Medical Oncology; Visit Provider Registered Nurse Emergency
DX: J30.89 Other allergic rhinitis (principal)
CPT/HCPCS: 95117; 95165

== ENCOUNTER 2025-06-18 08:16 | Outpatient (AMB) | payer OTHER, SELFPAY ==
--- OUTSIDE RECORDS SUMMARY | 2024-03-20 09:30 | XMS_ITS ---
Author Organization Landen Corral III, MD Address [address] [place] [address] [place] [address] Care Team Providers Care Locomotive Crane Operator Name Role Phone Dr. Landen Corral III Primary Care Provider [phone] Allergies Allergen (clinical drug ingredient) Drug/Non Drug [...] Date Provider Diagnosis Landen Corral III, MD [address] [place] [address] [address] [place], [place] [address] 03/20/2024 Landen Corral Overweight E66.3 ; Hyperlipidemia [...] Name:Landen Henao Ellis , 07/23/2025 02:30:00 PM, [address] [place] [address] [address], [place], [address], Provider Name:Landen Henao Ellis , 03/26/2026 02:30:00 PM, [address] [place] [address] [address], [place], [address], Progress Notes * Aniya LOAIZACorwinOB:1965 (58 yo M)Acc No.[id number]:03/20/2024 Progress Notes Patient: Roberto ZAMAN Provider: Sukhdev Corral MD :1965 A ge:58 Y S ex:Male Date:03/20/2024 Address:[address] [place] [phone] Subjective: * Chief Complaints: * A nnual [...] and is working. He was born in [place]. * Medications: T akingZyrTEC Allergy 10 [...] 03/20/2024 Generated for Gonzalo vasquez/Minerva/eTransmitting on: 1 08/19/2024 08:20 AM EST History and Physical Notes * [...]
--- OUTSIDE RECORDS SUMMARY | 2024-05-15 10:00 | XMS_ITS ---
Author Organization Landen Corral III, MD Address [address] [place] [address] [place] [address] Care Team Providers Care Aeronautical Design Engineer Name Role Phone Dr. Landen Corral III [...] Internal M edicine Referred Provider [facility], [facility], [facility] Referred Provider Specialty Otolaryngolo gy General [...] Date Provider Diagnosis Landen Corral III, MD [address] [place] [address] [place] [address] 05/15/2024 Landen Corral Overweight E66.3 ; Hyperlipidemia [...] Evaluate and Treat Bilateral Hearing Loss, of [facility], [facility] Next Appt Details Follow Up: 4 Months, Three t imes a year, Reason: OV, Regular Checkup Provider Name:Landen Corral , 07/23/2025 02:30:00 PM, [address] [place] [address] [address], [place], [address], Provider Name:Landen Corral , 03/26/2026 02:30:00 PM, [address] [place] [address] [address], [place], [address], Progress Notes * JOSSE AfiaisDOB:1965 (58 yo M)Acc No.[id number]:05/15/2024 Progress Notes Patient: Roberto ZAMAN Provider: Sukhdev Corral MD :1965 A ge:58 Y S ex:Male Date:05/15/2024 Address:[address] [place], [place] [phone] Subjective: * Chief Complaints: * H earing [...] * Surgical History: c olonoscopy, based a [facility], every 10 years March 2020No history * [...] and is working. He was born in [place], [place]. * Medications: T akingZyrTEC Allergy 10 MG [...] Lipid Panel 3. O thers Referral To:of [facility] Otolaryngology Reason:Evaluate and Treat Bilateral [...] Date: 07/15/2023 Generated for Printi ng/Faechog/eTransmitting on: 08/19/2024 08:20 AM EST History and Physical Notes * HPI (History of Present Illness) Category Sub-Category Detail Notes COVID-19 Screening Questions Have you had any new onset fever, chills, cough, congestion, sore throat, shortness of breath, muscle aches?: No Have you been exposed to the virus withi n the last 10 days?: No Have you travelled internationally in [facility] last 10 days?: No Have you been [...] Not layla 05/15/2024 Landen Corral Surgeons, of [facility], [facility] Evaluate and Treat Bilateral Hearing Loss
--- OUTSIDE RECORDS SUMMARY | 2024-08-25 04:11 | XMS_ITS ---
Author Organization Landen Corral III, MD Address [address] [place] [address] [place] [address] Care Team Providers Care Bass Singer Name Role Phone Dr. Landen Corral III Primary Care Provider [phone] REASON FOR VISIT Rx Request Medications Medication [...] Date Provider Diagnosis Landen Corral III, MD [address] [place] [address] [place] [address] 08/25/2024 Landen Corral Plan Of Treatment Medication Medication Name Sig Start Date Stop Date Notes Azithromycin 250 MG as directed Orally 2 Tablets on the first day, one tablet the rest of the days for 5 days 08/25/2024 08/30/2024 Next Appt Details Provider Name:Landen Corral , 07/23/2025 02:30:00 PM, [address] [place] [address] [place], [address], Provider Name:Landen Corral , 03/26/2026 02:30:00 PM, [address] [place] [address] [place], [address], Progress Notes * Juan Antonio LOAIZAOB:1965 (58 yo M)Acc No.[id number]:08/25/2024 Patient: Roberto ZAMAN :1965 A ge:58 Y S ex:Male Address:[address] [place] [phone] * Refills Start Azithromycin Tablet, 250 MG, Orally, 6, as directed, 2 Tablets on the first day, one tablet the rest of the days, 5 days, Refills=0 * true * Date: Generated for Gonzalo vasquez/Minerva/Soraidaitting on: 1 08/19/2024 08:19 AM EST
--- OUTSIDE RECORDS SUMMARY | 2024-09-13 10:00 | XMS_ITS ---
Author Organization Landen Corral III, MD Address [address] [place] [address] [place] [address] Care Team Providers Care Machine Try Out Setter Name Role Phone Dr. Landen Corral III [...] Date Provider Diagnosis Landen Corral III, MD [address] [place] [address] [address] [address] 09/13/2024 Landen Corral Overweight E66.3 ; Hyperlipidemia [...] Months, Reason: ov review labs Provider Name:Landen Croral , 07/23/2025 02:30:00 PM, [address] [place] [address] [address], [place], [address], Provider Name:Landen Corral , 03/26/2026 02:30:00 PM, [address] [place] [address] [address], [place], [address], Progress Notes * Juan Antonio LOAIZAOB:1965 (58 yo M)Acc No.[id number]:09/13/2024 Progress Notes Patient: Roberto ZAMAN Provider: Sukhdev Corral MD :1965 A ge:58 Y S ex:Male Date:09/13/2024 Address:[address] [place] [phone] Subjective: * Chief Complaints: * H yperlipidemiaObstructive [...] and is working. He was born in [place]. * Medications: T akingZyrTEC Allergy 10 [...] 0 09/13/2024 Generated for Gonzalo vasquez/Minerva/Soraidaitting on: 08/19/2024 08:20 AM EST History and [...]
--- OUTSIDE RECORDS SUMMARY | 2025-01-10 09:54 | XMS_ITS ---
Author Organization Landen Corral III, MD Address [address] [place] [address] [place] [address] Care Team Providers Care Administration Dean Name Role Phone Dr. Landen Corral III Primary Care Provider REASON FOR VISIT Rx Refill Medications Medication SIG (Take, Route, Frequency, Duration) Notes Start Date End Date Status Fluvastatin Sodium 40 MG TAKE 1 CAPSULE BY MOUTH DAILY Orally once a day for 90 days Active Social History Sex Assigned At : Social History Observation Description Sex Assigned At Male Encounters Encounter Location Date Provider Diagnosis Landen Corral III, MD [address] [place] [address] [place] [address] 01/10/2025 Landen Corral Overweight E66.3 Assessments Encounter Date Diagnosis (ICD Code) Assessment Notes Treatment Notes Treatment Clinical Notes 01/10/2025 Overweight (ICD-10 - E66.3) His body mass index is 28. He has lost 2 pounds. We made a plan to continue to lose weight at a rate of one half of a pound per week. Plan Of Treatment Medication Medication Name Sig Start Date Stop Date Notes Fluvastatin Sodium 40 MG TAKE 1 CAPSULE BY MOUTH DAILY Orally once a day for 90 days Next Appt Details Provider Name:Landen Corral , 07/23/2025 02:30:00 PM, [address] [place] [address] [place], [address], Provider Name:Landen Corral , 03/26/2026 02:30:00 PM, [address] [place] [address] , [address], [place], [address], Progress Notes * Juan Antonio LOAIZAOB:1965 (59 yo M)Acc No.[id number]:01/10/2025 Patient: Roberto ZAMAN :1965 A ge:59 Y S ex:Male Address:[address] [place] [address] * Refills Refill Fluvastatin Sodium Capsule, 40 MG, Orally, 90, TAKE 1 CAPSULE BY MOUTH DAILY, once a day, 90 days, Refills=3 * true * Date: Generated for Gonzalo vasquez/Minerva/Sonia on: 08/19/2024 08:19 AM EST
--- OUTSIDE RECORDS SUMMARY | 2025-01-17 10:30 | XMS_ITS ---
Author Organization Landen Corral III, MD Address [address] [place] [address] [place] [address] Care Team Providers Care Development Editor Name Role Phone Dr. Landen Corral III [...] Date Provider Diagnosis Landen Corral III, MD [address] [place] [address] [address] [place], [place] [address] 01/17/2025 Landen Corral Overweight E66.3 ; Hyperlipidemia [...] Next Appt Details Follow Up: As Scheduled, [place] son: Annual Exam Provider Name:Landen Corral , 07/23/2025 02:30:00 PM, [address] [place] [address] [address], [place], [address], Provider Name:Landen Corral , 03/26/2026 02:30:00 PM, [address] [place] [address] [address], [place], [address], Progress Notes * Juan Antonio LOAIZAOB:1965 (59 yo M)Acc No.[id number]:01/17/2025 Progress Notes Patient: Roberto ZAMAN Provider: Sukhdev Corral MD :1965 A ge:59 Y S ex:Male Date:01/17/2025 Address:[address] [place] [phone] Subjective: * Chief Complaints: * H yperlipidemiaOverweightSleep [...] * Surgical History: c olonoscopy, based a [facility], every 10 years March 2020No history [...] and is working. He was born in [place]. * Medications: T akingZyrTEC Allergy 10 [...] 0 01/17/2025 Generated for Gonzalo vasquez/Minerva/Lesviasmitting on: 08/19/2024 08:20 AM EST History and [...]
--- OUTSIDE RECORDS SUMMARY | 2025-03-21 09:30 | XMS_ITS ---
Author Organization Landen Corral III, MD Address [address] [place] [address] [place] [address] Care Team Providers Care Knifeman Name Role Phone Dr. Landen Corral III [...] Internal M edicine Referred Provider [facility], [facility] Referred Provider Specialty Otolaryngolo gy General Notes [...] Provider Diagnosis Landen Corral III, MD [address] [place] [address] [place] [address] 03/21/2025 Landen Corral Overweight E66.3 ; Hyperlipidemia [...] 03/21/2025, Evaluate and Treat Throat Pain, of [facility], [facility] Surgeons Next Appt Details Follow Up: 4 Months, Reason: OV Provider Name:Landen Corral , 07/23/2025 02:30:00 PM, [address] [place] [address] [address], [place], [address], Provider Name:Landen Corral , 03/26/2026 02:30:00 PM, [address] [place] [address] [address], [place], [address], Progress Notes * JOSSE Juan AntonioOB:1965 (59 yo M)Acc No.[id number]:03/21/2025 Progress Notes Patient: Roberto ZAMAN Provider: Sukhdev Corral MD :1965 A ge:59 Y S ex:Male Date:03/21/2025 Address:[address] [place] [phone] Subjective: * Chief Complaints: * A nnual Exam * HPI: D epression Screening: He returns to the office for his annual examination. Since his last visit he has been healthy and well. He has noted occasional heartburn for which he takes fzkm-isp-hpeoxlk medication with success. He is using his [...] * Surgical History: c olonoscopy, based a [facility], every 10 years March 2020No [...] and is working. He was born in [place], [place]. * Medications: T akingFluvastatin Sodium 40 MG [...] AB: Lipid Panel 4. O thers Referral To:[facility], [facility] Surgeons Otolaryngology Reason:Evaluate and Treat Throat [...] Corral MD Date: 0 03/21/2025 Generated for KiteBit ng/Nohemig/eTransmitting on: 1 08/19/2024 08:20 AM EST History [...] Provider Not 03/21/2025 Landen Corral Surgeons, of [facility], [facility] Evaluate and Treat Throat Pain
--- OUTSIDE RECORDS SUMMARY | 2025-06-18 08:21 | XMS_ITS | Patient Health Record ---
Author Organization Landen Corral III, MD Address [address] [place] [address] [place] [address] Care Team Providers Care Lidar Technician Name Role Phone Dr. Landen Corral III Primary Care Provider [phone] Allergies Allergen (clinical drug ingredient) Drug/Non Drug [...] Internal M edicine Referred Provider [facility] Surgeons, [facility], [facility] Referred Provider Specialty Otolaryngolo gy General [...] Problem Status W/U Status Risk Notes Problem 6676967 Former smoker (Z87.891) Active confirmed He has a plan for maintenance of abstinence in times of illness and distress. He is highly motivated not to smoke. Problem 58230723 Hyperlipidemia (E78.5) Active confirmed The only statin which he can tolerate his fluvastatin. He is on a maximum dose at this time with a total cholesterol near his target range. We have discussed weight reduction, dietary means to reduce cholesterol and increasing physical activity. Problem 451713623 Overweight (E66.3) Active confirmed His body mass [...] Problem Benign prostatic hypertrophy without outflow obstruction (537951943) BPH (benign prostatic hypertrophy) (N40.0) Active confirmed He has been rising from sleep about once a night to urinate. We have reviewed lifestyle modification she could back to reduce this. Problem 74621620 Statin intolerance (Z78.9) Active confirmed He has had no myalgias with fluvastatin. He is not allergic to statins. He is intolerant to the last lipid soluble statins. Problem 07333159 Obstructive sleep apnea (G47.33) Active confirmed He will continue using the CPAP. He denies any daytime somnolence. Problem Hearing loss (17224537) Bilateral hearing loss, unspecified hearing loss type (H91.93) Active confirmed Problem 58767998 Reactive depression (F32.9) Active confirmed He does [...] Provider Diagnosis Landen Corral III, MD [address] [place] [address] [place] [address] 09/13/2024 Landen Corral Overweight E66.3 ; Hyperlipidemia E78.5 ; Former smoker Z87.891 ; Obstructive sleep apnea G47.33 ; Statin intolerance Z78.9 and BPH (benign prostatic hypertrophy) N40.0 Landen Corral III, MD [address] [place] [address] [place] [address] 01/17/2025 Landen Corral Overweight E66.3 ; Hyperlipidemia E78.5 ; Former smoker Z87.891 ; Obstructive sleep apnea G47.33 ; BPH (benign prostatic hypertrophy) N40.0 and Reactive depression F32.9 Landen Corral III, MD [address] [place] [address] [place] [address] 03/21/2025 Landen Corral Overweight E66.3 ; Hyperlipidemia E78.5 ; BPH (benign prostatic hypertrophy) N40.0 ; Former smoker Z87.891 ; Statin intolerance Z78.9 and Obstructive sleep apnea G47.33 Landen Corral III, MD [address] [place] [address] [address]AE [place], [place] [address] 08/25/2024 Landen Corral III, MD [address] [place] [address] [address] [place], [place] [address] 01/10/2025 Landen Ellis Overweight E66.3 Assessments Encounter [...] Name:Landen Corral , 07/23/2025 02:30:00 PM, [address] [place] [address] DANIEL[address] READ, [place], [phone], Provider Name:Landen Corral , 03/26/2026 02:30:00 PM, [facility] DANIELLE READ, [place], [phone], Insurance Providers Payer Name Payer Address Payer Phone Subscriber Number Group Number Insured Name Patient Relationship to Insured Coverage Start Date Coverage End Date [facility] [address] [facility] [address] [place] [phone] [id number] Roberto Loaiza Self - patient is the insured Medical (General) History Medical History History ICD Code hyperlipidemia chronic back pain near sighted Overweight Surgical History Surgery Date(Month/Year) No history [facility] March 2020 Hospitalization History Reason Date(Month/Year) No history
== END 2025-06-18 08:24 | disposition home or self-care (01) ==
LOC: HO.HMGAL 08:16
PROVIDERS: PCP Internal Medicine Medical Oncology; Visit Provider Registered Nurse Emergency
DX: J30.89 Other allergic rhinitis (principal)
CPT/HCPCS: 95117; 95165